=== PATIENT | female | born 1970 | race American Indian/Alaskan Native ===

== ENCOUNTER 2017-09-24 14:05 | Emergency (ER) | payer MEDICAID ==
[2017-09-24 14:17] VITALS: BP 120/90
[2017-09-24 15:04] LABS: Urine Drugs of Abuse Note Disclamer
[2017-09-24 15:20] LABS: Bilirubin,Urine NEG (Negative); Blood,Urine MOD (Negative); Ketones,Urine TR mg/dL (Negative); Leukocyte Esterase,Urine NEG (Negative); Mucus,Urine FEW /HPF; Nitrite,Urine NEG (Negative)
[2017-09-24 15:47] LABS: Basophils % (Auto) 0.9 % (0.0-1.8); Eosinophils % (Auto) 0.2 % (0.0-4.3); Hemoglobin 11.2 gm/dl (10.1-14.3); Mean Corpuscular HGB Conc 32 % (30-34); Mean Corpuscular Volume 72 fl (79-97); Red Blood Count 4.89 M/mm3 (3.65-5.03); Red Cell Distribution Width 17.2 % (13.2-15.2); White Blood Count 7.6 K/mm3 (4.5-11.0)
[2017-09-24 15:50] LABS: Mean Corpuscular Hemoglobin 23 pg (28-32)
[2017-09-24 15:51] LABS: Platelet Count 349 K/mm3 (140-440)
[2017-09-24 16:08] LABS: Alanine Aminotransferase 174 units/L (7-56); Albumin 4.1 g/dL (3.9-5); Albumin/Globulin Ratio 1.4 %; Alkaline Phosphatase 83 units/L (35-129); Anion Gap 22 mmol/L; BUN/Creatinine Ratio 12; Blood Urea Nitrogen 6 mg/dL (7-17); Calcium 9.1 mg/dL (8.4-10.2); Carbon Dioxide 21 mmol/L (22-30); Chloride 101.9 mmol/L (98-107); Glucose 113 mg/dL (65-100); Lipase 36 units/L (13-60); Potassium 3.7 mmol/L (3.6-5.0); Sodium 141 mmol/L (137-145); Total Protein 7.1 g/dL (6.3-8.2)
== END 2017-09-25 00:30 | disposition left against medical advice (07) ==
LOC: ED 14:05
DX: E86.0 Dehydration (principal); Z53.21 Procedure and treatment not carried out due to patient leaving prior to being seen by health care provider
CPT/HCPCS: 36415; 80053; 80307; 81001; 83690; 84484; 84703; 85025; 93005; 93010

== ENCOUNTER 2019-02-05 07:13 | Emergency (ER) | payer BC, MEDICARE ==
--- NOTE | 2019-02-05 07:54 | Emergency Department Report ---
History of Present Illness - General Chief Complaint: Abdominal Pain Stated Complaint: BODY PAIN Time Seen by Provider: 02/05/19 07:38 Source: patient, EMS Mode of arrival: Stretcher Limitations: No Limitations - History of Present Illness Initial Comments: Patient is 48 years old female with history of depression, chronic narcotics abuse. Patient stated that she's been following with a pain clinic. She stated that she is taking Percocet and gabapentin for pain. Patient stated that she was out of her pain medicine. She stated that she took 7 tablets of 500 mg of Tylenol at once. Patient stated that she had suicidal ideation last year for which she was admitted to inpatient psychiatric facility. Patient currently denying suicidal ideation and stated that she took the medicine just to help with her pain. Patient is alert and oriented 3 and in no acute distress. Patient looks depressed. She also denied any visual or auditory hallucination. No previous history of bipolar or schizophrenic. Due to the amount of Tylenol that patient took, patient to put on 1013 for mental health evaluation. MD Complaint: intentional overdose -: This morning Intent: other (wound to help with the pain) How Overdose Was Discovered: called 911 Context: Intentional Overdose: other Associated Symptoms: depression - Related Data Home Medications Medication Instructions Recorded Confirmed Last Taken Gabapentin [Neurontin] 600 mg PO Q6H 04/23/18 02/05/19 04/14/18 traZODone 50 mg PO PRN PRN 04/26/18 02/05/19 Unknown Previous Rx's Medication Instructions Recorded Last Taken Type HYDROcodone/APAP 10-325 [[place] 1 each PO Q6HR PRN #4 tablet 04/26/15 Unknown Rx 10-325 mg TAB] oxyCODONE /ACETAMINOPHEN [Percocet 1 tab PO BID PRN #10 tablet 04/29/18 Unknown Rx 5/325] Allergies Allergy/AdvReac Type Severity Reaction Status Date / Time ketorolac tromethamine Allergy Rash Verified 10/18/13 14:00 [From Toradol] ED Review of Systems ROS: Stated complaint: BODY PAIN Other details as noted in HPI Comment: All other systems reviewed and negative Constitutional: denies: chills, fever Respiratory: denies: cough, orthopnea, shortness of breath, SOB with exertion, SOB at rest, wheezing Cardiovascular: denies: chest pain, palpitations, dyspnea on exertion Gastrointestinal: denies: abdominal pain, nausea, vomiting Neurological: denies: headache, weakness, numbness, paresthesias, confusion, abnormal gait Psychiatric: depression. denies: auditory hallucinations, visual hallucinations, homicidal thoughts, suicidal thoughts ED Past Medical Hx - Past Medical History Previous Medical History?: Yes Additional medical history: chronic low back, L sciatica. bells palsy. anemia. depression. anxiety. L4-L5 - Surgical History Past Surgical History?: Yes Hx Cholecystectomy: Yes Additional Surgical History: back surgery (02/2013), Left wrist fracture repair (03/2014) - Social History Smoking Status: Never Smoker Substance Use Type: None - Medications Home Medications: Home Medications Medication Instructions Recorded Confirmed Last Taken Type HYDROcodone/APAP 10-325 [[place] 1 each PO Q6HR PRN #4 tablet 04/26/15 02/05/19 Unknown Rx 10-325 mg TAB] Gabapentin [Neurontin] 600 mg PO Q6H 04/23/18 02/05/19 04/14/18 History traZODone 50 mg PO PRN PRN 04/26/18 02/05/19 Unknown History oxyCODONE /ACETAMINOPHEN [Percocet 1 tab PO BID PRN #10 tablet 04/29/18 02/05/19 Unknown Rx 5/325] ED Physical Exam - General Limitations: No Limitations General appearance: alert, in no apparent distress, other (depressed) - Head Head exam: Present: atraumatic, normocephalic, normal inspection - Eye Eye exam: Present: normal appearance, PERRL - ENT ENT exam: Present: normal exam, normal orophraynx, mucous membranes moist - Neck Neck exam: Present: normal inspection, full ROM. Absent: tenderness, meningis mus, lymphadenopathy, thyromegaly - Respiratory Respiratory exam: Present: normal lung sounds bilaterally - Cardiovascular Cardiovascular Exam: Present: regular rate, normal rhythm, normal heart sounds - GI/Abdominal GI/Abdominal exam: Present: soft, normal bowel sounds. Absent: distended, tenderness, guarding, rebound, rigid, organomegaly, mass, bruit, pulsatile mass, hernia - Extremities Exam Extremities exam: Present: normal inspection, full ROM, normal capillary refill - Back Exam Back exam: Present: normal inspection, full ROM. Absent: CVA tenderness (R), CVA tenderness (L) - Neurological Exam Neurological exam: Present: alert, oriented X3, CN II-XII intact, normal gait, reflexes normal - Psychiatric Psychiatric exam: Present: depressed, anxious. Absent: agitated, manic, homicidal ideation, suicidal ideation - Skin Skin exam: Present: warm, intact, normal color ED Course Vital Signs 02/05/19 02/05/19 02/05/19 07:41 09:20 11:27 Temperature 97.6 F Pulse Rate 69 74 82 Respiratory 16 16 16 Rate Blood Pressure 128/93 Blood Pressure 135/78 137/95 [Left] O2 Sat by Pulse 99 97 100 Oximetry ED Medical Decision Making - Lab Data Result diagrams: 02/05/19 07:49 02/05/19 12:44 - Medical Decision Making Patient is 48 years old female with history of depression, chronic narcotics abuse. Patient stated that she's been following with a pain clinic. She stated that she is taking Percocet and gabapentin for pain. Patient stated that she was out of her pain medicine. She stated that she took 7 tablets of 500 mg of Tylenol at once. Patient stated that she had suicidal ideation last year for which she was admitted to inpatient psychiatric facility. Patient currently denying suicidal ideation and stated that she took the medicine just to help with her pain. Patient is alert and oriented 3 and in no acute distress. Patient looks depressed. She also denied any visual or auditory hallucination. No previous history of bipolar or schizophrenic. Due to the amount of Tylenol that patient took, patient to put on 1013 for mental health evaluation. Patient remained stable. Poison control contacted and advised that the dose is nontoxic but advised to repeat acetaminophen level in 4 hours with a hepatic panel. Patient acetaminophen level went down to 14. Patient is medically clear reevaluated by mental health for possible inpatient psychiatric admission. Critical care attestation.: If time is entered above; I have spent that time in minutes in the direct care of this critically ill patient, excluding procedure time. ED Disposition Clinical Impression: Acetaminophen overdose, Suicide attempt Disposition: [id number]/TX-65 PSY HOSP/PSY UNIT Is pt being admited?: No Condition: Stable Instructions: Abdominal Pain (ED) Referrals: KASSANDRA KELLY MD [Primary Care Provider] - 3-5 Days
[2019-02-05 08:07] LABS: Basophils # (Auto) 0.1 K/mm3 (0.0-0.1); Basophils % (Auto) 1.3 % (0.0-1.8); Eosinophils % (Auto) 0.8 % (0.0-4.3); Hematocrit 28.7 % (30.3-42.9); Hemoglobin 8.8 gm/dl (10.1-14.3); Lymphocytes # (Auto) 1.4 K/mm3 (1.2-5.4); Lymphocytes % (Auto) 33.8 % (13.4-35.0); Mean Corpuscular HGB Conc 31 % (30-34); Monocytes # (Auto) 0.3 K/mm3 (0.0-0.8); Monocytes % (Auto) 6.1 % (0.0-7.3); Platelet Count 371 K/mm3 (140-440); Red Blood Count 4.38 M/mm3 (3.65-5.03); Red Cell Distribution Width 18.8 % (13.2-15.2)
[2019-02-05 08:11] LABS: Mean Corpuscular Volume 66 fl (79-97)
[2019-02-05 08:24] LABS: BUN/Creatinine Ratio 13; Blood Urea Nitrogen 9 mg/dL (7-17); Calcium 8.9 mg/dL (8.4-10.2); Hemolysis Index 18
[2019-02-05 08:28] LABS: Alanine Aminotransferase 8 units/L (7-56); Albumin 3.6 g/dL (3.9-5)
[2019-02-05 09:33] LABS: Bilirubin,Direct < 0.2 mg/dL (0-0.2)
[2019-02-05 09:39] LABS: INR 0.95 (0.87-1.13)
[2019-02-05 09:40] LABS: Partial Thromboplastin Time 25.8 Sec. (24.2-36.6)
[2019-02-05 10:19] LABS: Bilirubin,Urine NEG (Negative); Blood,Urine NEG (Negative); Color,Urine Yellow (Yellow); Mucus,Urine FEW /HPF; Protein,Urine <15 mg/dL mg/dL (Negative); Urobilinogen,Urine < 2.0 mg/dL (<2.0)
[2019-02-05 10:58] LABS: Benzodiazepines Screen,Urine PRESUMPTIVE NEGATIVE; Cannabinoid Screen,Urine PRESUMPTIVE NEGATIVE; Cocaine Screen,Urine PRESUMPTIVE NEGATIVE; Methadone Screen,Urine PRESUMPTIVE NEGATIVE; Opiate Screen,Urine PRESUMPTIVE NEGATIVE
[2019-02-05 11:13] LABS: Amphetamine Screen,Urine PRESUMPTIVE POSITIVE
[2019-02-05 13:14] LABS: Alanine Aminotransferase 8 units/L (7-56); Albumin 3.8 g/dL (3.9-5); BUN/Creatinine Ratio 13; Blood Urea Nitrogen 9 mg/dL (7-17); Calcium 8.9 mg/dL (8.4-10.2); Hemolysis Index 8
[2019-02-05] MEDS ORDERED: NON-FORMULARY (Trazodone 150 MG) PO PRN (18:03)
[2019-02-05] MEDS ORDERED: DESYREL PO PRN (18:14)
[2019-02-05] MEDS: ATIVAN PO PRN (18:39)
[2019-02-05] MEDS ORDERED: CARISOPRODOL 250 MG PO SCH (20:00)
[2019-02-05] MEDS: SOMA PO PRN (20:41)
[2019-02-05] MEDS: NEURONTIN PO SCH ×2 (20:41→22:15)
[2019-02-05] MEDS ORDERED: NON-FORMULARY (Gabapentin [Neurontin] 600 MG) PO SCH (22:00)
[2019-02-06] MEDS: SOMA PO PRN ×2 (07:39→16:45)
[2019-02-06] MEDS: ATIVAN PO PRN ×2 (08:26→13:16)
[2019-02-06] MEDS: NEURONTIN PO SCH ×4 (10:47→22:03)
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
[2019-02-07] MEDS: ATIVAN PO PRN ×4 (02:54→22:56)
[2019-02-07] MEDS: SOMA PO PRN ×3 (02:54→22:56)
[2019-02-07] MEDS: NEURONTIN PO SCH ×4 (09:30→22:56)
--- NOTE | 2019-02-07 14:57 | Progress Note ---
Subjective - Reason for Consult Consult date: 02/07/19 Reason for consult: Psychiatry Follow-uo - Chief Complaint Chief complaint: "I am sad" 48 year old who presented to the ER for taking several Tylenol pills. Today the patient is calm and cooperative during the assessment. She stated is adamant that she didn't take the Tylenol pills to kill herself. She stated that she was in "pain" and had no other options at the time. She does a dmit to being depressed and sad about her medical issues (chronic pain). She stated that she is willing to take a SSRI at a small dose for her depression. She denies SI/HI's and AVH's. She stated that her sleep can be "off" sometimes." Mental Status Exam - Vital signs Last Vital Signs Temp 99.2 F 02/07/19 14:30 Pulse 111 H 02/07/19 14:30 Resp 18 02/07/19 14:30 BP 104/60 02/07/19 14:30 Pulse Ox 99 02/07/19 14:30 - Exam Narrative exam: . MSE: Appearance: calm, cooperative Behavior: regular eye contact Speech: regular rate with loud tone Mood:: "depressed" sad Affect: flat Thought Process: circumstantial Thought Content: denies SI/HI's and AVH's Motor Activity: ambulatory Cognition: A/O x3 Insight: fair Judgment: variable to fair Assessment and Plan Impression: MDD and COCO. Today the patient is calm and cooperative during the assessment. . DDx: R/O Bipolar DO Recommendation/Plan: Reevaluate 1013 in 24 hours. Start Lexapro 5 mg PO daily for depression and start Benadryl 25 mg PO HS PRN for sleep. Continue Ativan 1 mg PO TID PRN for anxiety. Discussed possible suicidality/medication induced alisha with the patient reference Lexapro, she verbalized understanding. Disp: If the patient's 1013 is rescinded in 24 hours, she can follow up with [facility] for outpatient psy services. Staffed with Dr. Killian Bledsoe.
[2019-02-07] MEDS ORDERED: BENADRYL PO PRN (15:03)
[2019-02-07] MEDS ORDERED: PERCOCET 5/325 PO ONE (16:55)
[2019-02-07] MEDS ORDERED: LEXAPRO PO SCH (18:00)
[2019-02-07] MEDS ORDERED: ZOFRAN ODT ONE (22:23)
[2019-02-07] MEDS ORDERED: ZOFRAN ODT PO ONE (22:26)
[2019-02-08] MEDS: ATIVAN PO PRN (05:44)
[2019-02-08] MEDS: SOMA PO PRN ×2 (05:44→10:40)
--- NOTE | 2019-02-08 09:54 | Progress Note ---
Subjective - Reason for Consult Consult date: 02/08/19 Reason for consult: Psychiatry Follow-up - Chief Complaint Chief complaint: "I tried the medication" 48 year old who presented to the ER for taking several Tylenol pills. Today the patient is calm and cooperative during the assessment. She stated that she "vomited" after taking the Lexapro last night and this morning. Per collateral information from her boyfriend Santiago Huertas at [phone], he stated that the patient took the Tylenol because she was in pain. He denies that she tried to killl herself. The patient stated that is scheduled to see a "pain doctor" this week at [facility]. She denies SI/HI's and AVH's. Mental Status Exam - Vital signs Last Vital Signs Temp 98.1 F 02/08/19 08:01 Pulse 94 H 02/08/19 08:01 Resp 18 02/08/19 08:01 BP 120/82 02/08/19 08:01 Pulse Ox 95 02/08/19 08:01 - Exam Narrative exam: MSE: Appearance: calm, cooperative Behavior: regular eye contact Speech: regular rate with loud tone Mood:: "depressed" sad Affect: flat Thought Process: linear Thought Content: denies HI's and AVH's Motor Activity: ambulatory Cognition: A/O x3 Insight: appropriate Judgment: appropriate Assessment and Plan Impression: MDD and COCO. Unintentional overdose. Today the patient is calm and cooperative during the assessment. The patient is positive for amphetamines. The patient is no threat to self. . DDx: R/O Bipolar DO Recommendation/Plan: Rescind 1013. Ativan 1 mg PO TID PRN for anxiety. The patient cannot tolerate antidepressants at this time, she prefer talk therapy. Disp:The patient can follow up with [facility] for outpatient psy services. Stafedf with Dr. Killian Bledsoe.
[2019-02-08] MEDS: NEURONTIN PO SCH (10:42)
[2019-02-08 18:28] VITALS: BP 120/82
== END 2019-02-08 11:04 ==
LOC: ED 07:13
DX: T39.1X2A Poisoning by 4-Aminophenol derivatives, intentional self-harm, initial encounter (principal); G89.29 Other chronic pain; M54.5 Low back pain; Z86.2 Personal history of diseases of the blood and blood-forming organs and certain disorders involving the immune mechanism; Z90.49 Acquired absence of other specified parts of digestive tract; Z88.6 Allergy status to analgesic agent; Y92.89 Other specified places as the place of occurrence of the external cause
CPT/HCPCS: 36415; 80048; 80053; 80076; 80307; 81001; 84703; 85025; 85610; 85730; 93005; 93010; 99284; G0480; 80320; J3246; Q0162

== ENCOUNTER 2019-10-11 20:23 | Emergency (ER) | payer BC, MEDICARE ==
[2019-10-11 21:24] LABS: Hematocrit 23.8 % (30.3-42.9); Hemoglobin 7.3 gm/dl (10.1-14.3); Mean Corpuscular HGB Conc 31 % (30-34); Platelet Count 545 K/mm3 (140-440); Red Blood Count 4.12 M/mm3 (3.65-5.03)
[2019-10-11 21:29] LABS: Mean Corpuscular Volume 58 fl (79-97); Red Cell Distribution Width 24.6 % (13.2-15.2)
[2019-10-11 21:42] VITALS: BP 151/84
[2019-10-11 21:51] LABS: BUN/Creatinine Ratio 11; Blood Urea Nitrogen 9 mg/dL (7-17); Calcium 8.7 mg/dL (8.4-10.2); Hemolysis Index 11; Iron 21 ug/dL (37-170); Total Iron Binding Capacity 417 mcg/dL (250-450)
--- NOTE | 2019-10-11 21:52 | Emergency Department Report ---
ED General Adult HPI - General Chief complaint: Recheck/Abnormal Lab/Rx Stated complaint: LOW HEMOGLOBIN Time Seen by Provider: 10/11/19 20:30 Source: patient, EMS, old records reviewed (hgb 8.8 in february 2018 and 04/2018 8.4) Mode of arrival: Stretcher Limitations: No Limitations - History of Present Illness Initial comments: 48-year-old female with a past medical history of iron deficiency anemia, chronic pain secondary to back surgery, wrist injury, and left-sided sciatica, depression with history of suicide attempt in the past insomnia, anxiety reports [place] [facility] to [place] hemoglobin. Patient was admitted to [facility] 10/08/2019 and had blood drawn on the that resulted today showing a hemoglobin 7.2 and hematocrit 27.9. Patient reports a history of iron deficiency anemia and has not ever had a blood transfusion and does not take iron pills on a regular basis. Iron pills were restarted at the psychiatric facility. Patient did have a menstrual cycle September 25 and denies heavy bleeding. She also denies melena, hematochezia, or hematemesis. Patient is voluntarily admitted to [facility] for suicidal ideation due and is not on a signed 1013. Severity scale (0 -10): 0 - Related Data Home Medications Medication Instructions Recorded Confirmed Last Taken Gabapentin [Neurontin] 600 mg PO QID 04/23/18 02/07/19 04/14/18 traZODone 150 mg PO PRN PRN 04/26/18 02/07/19 Unknown Carisoprodol [Soma] 250 mg PO TID 02/05/19 02/07/19 Unknown LORazepam [Ativan] 1 mg PO TID PRN 02/05/19 02/07/19 Unknown Previous Rx's Medication Instructions Recorded Last Taken Type HYDROcodone/APAP 10-325 [[place] 1 each PO Q6HR PRN #4 tablet 04/26/15 Unknown Rx 10-325 mg TAB] oxyCODONE /ACETAMINOPHEN [Percocet 1 tab PO BID PRN #10 tablet 04/29/18 Unknown Rx 5/325] LORazepam [Ativan] 0.5 mg PO QHS PRN #15 tab 02/08/19 Unknown Rx Docusate Sodium [Colace] 100 mg PO BID PRN #20 capsule 10/11/19 Unknown Rx Allergies Allergy/AdvReac Type Severity Reaction Status Date / Time ketorolac tromethamine Allergy Rash Verified 10/18/13 14:00 [From Toradol] ED Review of Systems ROS: Stated complaint: LOW HEMOGLOBIN Other details as noted in HPI Comment: All other systems reviewed and negative ED Past Medical Hx - Past Medical History Additional medical history: chronic low back, L sciatica. bells palsy. anemia. depression. anxiety. L4-L5 - Surgical History Hx Cholecystectomy: Yes Additional Surgical History: back surgery (02/2013), Left wrist fracture repair (03/2014) - Social History Smoking Status: Never Smoker Substance Use Type: None - Medications Home Medications: Home Medications Medication Instructions Recorded Confirmed Last Taken Type HYDROcodone/APAP 10-325 [[place] 1 each PO Q6HR PRN #4 tablet 04/26/15 02/07/19 Unknown Rx 10-325 mg TAB] Gabapentin [Neurontin] 600 mg PO QID 04/23/18 02/07/19 04/14/18 History traZODone 150 mg PO PRN PRN 04/26/18 02/07/19 Unknown History oxyCODONE /ACETAMINOPHEN [Percocet 1 tab PO BID PRN #10 tablet 04/29/18 02/07/19 Unknown Rx 5/325] Carisoprodol [Soma] 250 mg PO TID 02/05/19 02/07/19 Unknown History LORazepam [Ativan] 1 mg PO TID PRN 02/05/19 02/07/19 Unknown History LORazepam [Ativan] 0.5 mg PO QHS PRN #15 tab 02/08/19 Unknown Rx Docusate Sodium [Colace] 100 mg PO BID PRN #20 capsule 10/11/19 Unknown Rx ED Physical Exam - General Limitations: No Limitations ED Course Vital Signs 10/11/19 10/11/19 10/11/19 20:37 20:49 21:35 Pulse Rate 78 68 Respiratory 14 14 14 Rate Blood Pressure 158/88 151/84 [Left] O2 Sat by Pulse 100 100 100 Oximetry ED Medical Decision Making - Lab Data Result diagrams: 10/11/19 21:09 10/11/19 21:09 Lab Results 10/11/19 10/11/19 10/11/19 Range/Units 21:09 21:09 21:09 WBC 6.6 (4.5-11.0) K/mm3 RBC 4.12 (3.65-5.03) M/mm3 Hgb 7.3 L (10.1-14.3) gm/dl Hct 23.8 L (30.3-42.9) % MCV 58 L (79-97) fl MCH 18 L (28-32) pg MCHC 31 (30-34) % RDW 24.6 H (13.2-15.2) % Plt Count 545 H (140-440) K/mm3 Sodium 137 (137-145) mmol/L Potassium 3.9 (3.6-5.0) mmol/L Chloride 100.1 (98-107) mmol/L Carbon Dioxide 21 L (22-30) mmol/L Anion Gap 20 mmol/L BUN 9 (7-17) mg/dL Creatinine 0.8 (0.7-1.2) mg/dL Estimated GFR > 60 ml/min BUN/Creatinine Ratio 11 % Glucose 107 H (65-100) mg/dL Calcium 8.7 (8.4-10.2) mg/dL Iron 21 L (37-170) ug/dL TIBC 417 (250-450) mcg/dL HCG, Qual (Negative) Blood Type O POSITIVE Antibody Screen Negative 10/11/19 Range/Units 21:09 WBC (4.5-11.0) K/mm3 RBC (3.65-5.03) M/mm3 Hgb (10.1-14.3) gm/dl Hct (30.3-42.9) % MCV (79-97) fl MCH (28-32) pg MCHC (30-34) % RDW (13.2-15.2) % Plt Count (140-440) K/mm3 Sodium (137-145) mmol/L Potassium (3.6-5.0) mmol/L Chloride (98-107) mmol/L Carbon Dioxide (22-30) mmol/L Anion Gap mmol/L BUN (7-17) mg/dL Creatinine (0.7-1.2) mg/dL Estimated GFR ml/min BUN/Creatinine Ratio % Glucose (65-100) mg/dL Calcium (8.4-10.2) mg/dL Iron (37-170) ug/dL TIBC (250-450) mcg/dL HCG, Qual Negative (Negative) Blood Type Antibody Screen - Medical Decision Making pt has chronic iron deficiency anemia sx of lightheadedness for several months no acute blood loss reported no hypotension or tachycardia no vaginal bleeding, guaic neg rectal exam low iron level Pt has been started on iron tabs tid today at psych facility iron tab will be started with heme outpt f/u advised pt given a [place] for chronic back pain. (pt being given norco at [place]) - Differential Diagnosis anemia, iron def, acute blood loss, chronic anemia Critical Care Time: No Critical care attestation.: If time is entered above; I have spent that time in minutes in the direct care of this critically ill patient, excluding procedure time. ED Disposition Clinical Impression: Iron deficiency anemia, Chronic pain, Depression Disposition: TO HOME OR SELFCARE Is pt being admited?: No Does the pt Need Aspirin: No Condition: Stable Instructions: Iron Deficiency Anemia (ED) Additional Instructions: Continue the Iron tablets as prescribed. Follow-up with your doctor or doctor/c linic provided. Return if symptoms worsen as indicated by your discharge instructions. Prescriptions: Docusate Sodium [Colace] 100 mg PO BID PRN #20 capsule PRN Reason: Constipation Referrals: GUMARO TAYLOR DO [Staff Physician] - 3-5 Days (hematology ) PHONG VOGEL MD [Staff Physician] - 3-5 Days (hematology ) [facility] [Provider Group] - 3-5 Days Time of Disposition: 22:32
[2019-10-11] MEDS ORDERED: HYDROcodone/ACETAMINOPHEN 5-325 MG TAB PO ONE (22:12)
[2019-10-11 22:31] LABS: Basophils % (Manual) 0 % (0.0-1.8); Total Cells Counted 100
[2019-10-11 22:32] LABS: Anisocytosis 2+; Platelet Estimate Consistent w Auto
[2019-10-11 22:33] LABS: Hypochromasia 2+; Ovalocytes 1+; Target Cells 2+
== END 2019-10-11 23:56 | disposition home or self-care (01) ==
LOC: ED 20:23
DX: D50.9 Iron deficiency anemia, unspecified (principal); F32.9 Major depressive disorder, single episode, unspecified; G51.0 Bell's palsy; Z90.49 Acquired absence of other specified parts of digestive tract; Z79.899 Other long term (current) drug therapy; Z88.8 Allergy status to other drugs, medicaments and biological substances
CPT/HCPCS: 36415; 80048; 82271; 83550; 84703; 85007; 85025; 86850; 86900; 86901

== ENCOUNTER 2020-07-24 01:43 | Emergency (ER) | payer BC, MEDICARE ==
[2020-07-24 02:28] LABS: Amphetamine Screen,Urine PRESUMPTIVE POSITIVE; Benzodiazepines Screen,Urine PRESUMPTIVE NEGATIVE; Cannabinoid Screen,Urine PRESUMPTIVE NEGATIVE; Cocaine Screen,Urine PRESUMPTIVE NEGATIVE; Methadone Screen,Urine PRESUMPTIVE NEGATIVE; Opiate Screen,Urine PRESUMPTIVE NEGATIVE
[2020-07-24 02:38] LABS: Bilirubin,Urine SM (Negative); Blood,Urine SM (Negative); Color,Urine Yellow (Yellow); Mucus,Urine 1+ /HPF
[2020-07-24 03:07] LABS: Basophils % (Auto) 0.6 % (0.0-1.8); Eosinophils % (Auto) 0.6 % (0.0-4.3); Hematocrit 32.4 % (30.3-42.9); Hemoglobin 10.3 gm/dl (10.1-14.3); Lymphocytes # (Auto) 2.2 K/mm3 (1.2-5.4); Mean Corpuscular HGB Conc 32 % (30-34); Mean Corpuscular Volume 72 fl (79-97); Monocytes # (Auto) 0.5 K/mm3 (0.0-0.8); Platelet Count 337 K/mm3 (140-440); Red Cell Distribution Width 16.8 % (13.2-15.2)
[2020-07-24 03:20] LABS: Blood Urea Nitrogen 17 mg/dL (7-17); Calcium 8.7 mg/dL (8.4-10.2); Hemolysis Index 0
[2020-07-24 03:22] LABS: Ictotest,Urine Negative (Negative)
[2020-07-24 03:33] LABS: BUN/Creatinine Ratio 24
--- NOTE | 2020-07-24 07:33 | Emergency Department Report ---
<MARIANGEL JIMENEZ - Last Filed: 07/26/20 11:28> ED Psych HPI - General Chief Complaint: Psych Stated Complaint: MH EVAL Time Seen by Provider: 07/24/20 06:11 Limitations: Physical Limitation - Related Data Home Medications Medication Instructions Recorded Confirmed Last Taken Gabapentin [Neurontin] 800 mg PO QID 04/23/18 07/26/20 06/27/20 1200 oxyCODONE /ACETAMINOPHEN [Percocet 10 - 325 mg PO QID PRN 06/27/20 07/27/20 06/27/20 5/325 mg] 1300 Carisoprodol [Soma] 350 mg PO DAILY 07/26/20 07/26/20 2 Weeks Ago ~07/12/20 350 mg Previous Rx's Medication Instructions Recorded Last Taken Type Venlafaxine Xr [Effexor XR] 75 mg PO QDAY #30 capsule 07/03/20 Unknown Rx buPROPion [Wellbutrin] 100 mg PO BID@0800,1400 #60 tablet 07/03/20 Unknown Rx ARIPiprazole 5 mg PO QDAY #30 tablet 07/30/[address] [Liu Dr] 500 mg PO BID #60 tablet 07/30/20 Unknown Rx Mirtazapine [Remeron 30mg TAB] 30 mg PO QHS #30 tablet 07/30/20 Unknown Rx Allergies Allergy/AdvReac Type Severity Reaction Status Date / Time ketorolac tromethamine Allergy Rash Verified 07/24/20 08:14 [From Toradol] ED Past Medical Hx - Medications Home Medications: Home Medications Medication Instructions Recorded Confirmed Last Taken Type Gabapentin [Neurontin] 800 mg PO QID 04/23/18 07/26/20 06/27/20 History 1200 oxyCODONE /ACETAMINOPHEN [Percocet 10 - 325 mg PO QID PRN 06/27/20 07/27/20 06/27/20 History 5/325 mg] 1300 Venlafaxine Xr [Effexor XR] 75 mg PO QDAY #30 capsule 07/03/20 07/26/20 Unknown Rx buPROPion [Wellbutrin] 100 mg PO BID@0800,1400 #60 tablet 07/03/20 07/26/20 Unknown Rx Carisoprodol [Soma] 350 mg PO DAILY 07/26/20 07/26/20 2 Weeks Ago History ~07/12/20 350 mg ARIPiprazole 5 mg PO QDAY #30 tablet 07/30/[address] [Depakote Dr] 500 mg PO BID #60 tablet 07/30/20 Unknown Rx Mirtazapine [Remeron 30mg TAB] 30 mg PO QHS #30 tablet 07/30/20 Unknown Rx ED Course - Reevaluation(s) Reevaluation #1: 07/26/20 11:58 Patient is been admitted to our [facility] psych unit. ED Medical Decision Making - Lab Data Result diagrams: 07/24/20 02:48 07/24/20 02:48 Lab Results 07/24/20 07/24/20 07/24/20 Range/Units 02:48 02:48 02:48 WBC (4.5-11.0) K/mm3 RBC (3.65-5.03) M/mm3 Hgb (10.1-14.3) gm/dl Hct (30.3-42.9) % MCV (79-97) fl MCH (28-32) pg MCHC (30-34) % RDW (13.2-15.2) % Plt Count (140-440) K/mm3 Lymph % (Auto) (13.4-35.0) % [place] % (Auto) (0.0-7.3) % Eos % (Auto) (0.0-4.3) % Baso % (Auto) (0.0-1.8) % Lymph # (Auto) (1.2-5.4) K/mm3 [place] # (Auto) (0.0-0.8) K/mm3 Eos # (Auto) (0.0-0.4) K/mm3 Baso # (Auto) (0.0-0.1) K/mm3 Seg Neutrophils % (40.0-70.0) % Seg Neutrophils # (1.8-7.7) K/mm3 Sodium 140 (137-145) mmol/L Potassium 4.1 (3.6-5.0) mmol/L Chloride 101.8 (98-107) mmol/L Carbon Dioxide 24 (22-30) mmol/L Anion Gap 18 mmol/L BUN 17 (7-17) mg/dL Creatinine 0.7 (0.6-1.2) mg/dL Estimated GFR > 60 ml/min BUN/Creatinine Ratio 24 % Glucose 170 H (65-100) mg/dL Calcium 8.7 (8.4-10.2) mg/dL Urine Color (Yellow) Urine Turbidity (Clear) Urine pH (5.0-7.0) Ur Specific [place] (1.003-1.030) Urine Protein (Negative) mg/dL Urine Glucose (UA) (Negative) mg/dL Urine Ketones (Negative) mg/dL Urine Blood (Negative) Urine Nitrite (Negative) Urine Bilirubin (Negative) Urine Ictotest (Negative) Urine Urobilinogen (<2.0) mg/dL Ur Leukocyte Esterase (Negative) Urine WBC (Auto) (0.0-6.0) /HPF Urine RBC (Auto) (0.0-6.0) /HPF U Epithel Cells (Auto) (0-13.0) /HPF Urine Mucus /HPF Salicylates < 0.3 L (2.8-20.0) mg/dL Urine Opiates Screen Urine Methadone Screen Acetaminophen 12.5 (10.0-30.0) ug/mL Ur Barbiturates Screen Ur Phencyclidine Scrn Ur Amphetamines Screen U Benzodiazepines Scrn Urine Cocaine Screen U Marijuana (THC) Screen Drugs of Abuse Note Plasma/Serum Alcohol (0-0.07) % Coronavirus (PCR) (Negative) 07/24/20 07/24/20 07/24/20 Range/Units 02:48 02:48 Unknown WBC 8.1 (4.5-11.0) K/mm3 RBC 4.50 (3.65-5.03) M/mm3 Hgb 10.3 (10.1-14.3) gm/dl Hct 32.4 (30.3-42.9) % MCV 72 L (79-97) fl MCH 23 L (28-32) pg MCHC 32 (30-34) % RDW 16.8 H (13.2-15.2) % Plt Count 337 (140-440) K/mm3 Lymph % (Auto) 27.0 (13.4-35.0) % [place] % (Auto) 6.0 (0.0-7.3) % Eos % (Auto) 0.6 (0.0-4.3) % Baso % (Auto) 0.6 (0.0-1.8) % Lymph # (Auto) 2.2 (1.2-5.4) K/mm3 [place] # (Auto) 0.5 (0.0-0.8) K/mm3 Eos # (Auto) 0.0 (0.0-0.4) K/mm3 Baso # (Auto) 0.0 (0.0-0.1) K/mm3 Seg Neutrophils % 65.8 (40.0-70.0) % Seg Neutrophils # 5.4 (1.8-7.7) K/mm3 Sodium (137-145) mmol/L Potassium (3.6-5.0) mmol/L Chloride (98-107) mmol/L Carbon Dioxide (22-30) mmol/L Anion Gap mmol/L BUN (7-17) mg/dL Creatinine (0.6-1.2) mg/dL Estimated GFR ml/min BUN/Creatinine Ratio % Glucose (65-100) mg/dL Calcium (8.4-10.2) mg/dL Urine Color Yellow (Yellow) Urine Turbidity Clear (Clear) Urine pH 5.0 (5.0-7.0) Ur Specific [place] 1.057 H (1.003-1.030) Urine Protein 30 mg/dl (Negative) mg/dL Urine Glucose (UA) Neg (Negative) mg/dL Urine Ketones Tr (Negative) mg/dL Urine Blood Sm (Negative) Urine Nitrite Neg (Negative) Urine Bilirubin Sm (Negative) Urine Ictotest Negative (Negative) Urine Urobilinogen 2.0 (<2.0) mg/dL Ur Leukocyte Esterase Neg (Negative) Urine WBC (Auto) 1.0 (0.0-6.0) /HPF Urine RBC (Auto) 6.0 (0.0-6.0) /HPF U Epithel Cells (Auto) 2.0 (0-13.0) /HPF Urine Mucus 1+ /HPF Salicylates (2.8-20.0) mg/dL Urine Opiates Screen Urine Methadone Screen Acetaminophen (10.0-30.0) ug/mL Ur Barbiturates Screen Ur Phencyclidine Scrn Ur Amphetamines Screen U Benzodiazepines Scrn Urine Cocaine Screen U Marijuana (THC) Screen Drugs of Abuse Note Plasma/Serum Alcohol < 0.01 (0-0.07) % Coronavirus (PCR) (Negative) 07/24/20 07/25/20 Range/Units Unknown 08:29 WBC (4.5-11.0) K/mm3 RBC (3.65-5.03) M/mm3 Hgb (10.1-14.3) gm/dl Hct (30.3-42.9) % MCV (79-97) fl MCH (28-32) pg MCHC (30-34) % RDW (13.2-15.2) % Plt Count (140-440) K/mm3 Lymph % (Auto) (13.4-35.0) % [place] % (Auto) (0.0-7.3) % Eos % (Auto) (0.0-4.3) % Baso % (Auto) (0.0-1.8) % Lymph # (Auto) (1.2-5.4) K/mm3 [place] # (Auto) (0.0-0.8) K/mm3 Eos # (Auto) (0.0-0.4) K/mm3 Baso # (Auto) (0.0-0.1) K/mm3 Seg Neutrophils % (40.0-70.0) % Seg Neutrophils # (1.8-7.7) K/mm3 Sodium (137-145) mmol/L Potassium (3.6-5.0) mmol/L Chloride (98-107) mmol/L Carbon Dioxide (22-30) mmol/L Anion Gap mmol/L BUN (7-17) mg/dL Creatinine (0.6-1.2) mg/dL Estimated GFR ml/min BUN/Creatinine Ratio % Glucose (65-100) mg/dL Calcium (8.4-10.2) mg/dL Urine Color (Yellow) Urine Turbidity (Clear) Urine pH (5.0-7.0) Ur Specific [place] (1.003-1.030) Urine Protein (Negative) mg/dL Urine Glucose (UA) (Negative) mg/dL Urine Ketones (Negative) mg/dL Urine Blood (Negative) Urine Nitrite (Negative) Urine Bilirubin (Negative) Urine Ictotest (Negative) Urine Urobilinogen (<2.0) mg/dL Ur Leukocyte Esterase (Negative) Urine WBC (Auto) (0.0-6.0) /HPF Urine RBC (Auto) (0.0-6.0) /HPF U Epithel Cells (Auto) (0-13.0) /HPF Urine Mucus /HPF Salicylates (2.8-20.0) mg/dL Urine Opiates Screen Presumptive negative Urine Methadone Screen Presumptive negative Acetaminophen (10.0-30.0) ug/mL Ur Barbiturates Screen Presumptive negative Ur Phencyclidine Scrn Presumptive negative Ur Amphetamines Screen Presumptive positive U Benzodiazepines Scrn Presumptive negative Urine Cocaine Screen Presumptive negative U Marijuana (THC) Screen Presumptive negative Drugs of Abuse Note Disclamer Plasma/Serum Alcohol (0-0.07) % Coronavirus (PCR) Negative (Negative) ED Disposition Clinical Impression: Bipolar disorder, Suicidal ideation, MDD (major depressive disorder), recurrent episode, severe Disposition: DC/TX-65 PSY HOSP/PSY UNIT Is pt being admited?: No Does the pt Need Aspirin: No Condition: Stable Referrals: KASSANDRA KELLY MD [Primary Care Provider] - 3-5 Days Time of Disposition: 11:59 <ASPEN ZELAYA - Last Filed: 07/30/20 18:59> ED Psych HPI - General Source: patient Mode of arrival: Ambulatory - History of Present Illness Initial Comments: 49-year-old female with history of bipolar disorder, anxiety, chronic neck and back pain, presents to the ED with complaint of suicidal ideations. Patient states she was recently discharged from our psychiatric for a few weeks ago. Patient states the current medication regimen that they have her on is not working. She denies any hallucinations or HI. Patient does not currently have a plan for suicide. She denies any alcohol or drug use. Complaint: suicidal ideation -: days(s) (4) Associated Psychiatric Symptoms: suicidal ideation History of same: Yes Quality: constant Improves With: none Worsens With: none Context: new medication(s) Associated Symptoms: denies other symptoms Treatments Prior to Arrival: none If Self Harm: admits thoughts of ED Review of Systems ROS: Stated complaint: MH EVAL Other details as noted in HPI Comment: All other systems reviewed and negative Psychiatric: suicidal thoughts, other (Reports insomnia). denies: auditory hallucinations, visual hallucinations, homicidal thoughts ED Past Medical Hx - Past Medical History Previous Medical History?: Yes Hx Congestive Heart Failure: No Hx Diabetes: No Hx Renal Disease: No Hx Arthritis: Yes (DJD) Hx Seizures: No Hx Asthma: No Hx COPD: No Additional medical history: chronic low back, L sciatica. bells palsy. anemia. depression. anxiety. L4-L5 - Surgical History Past Surgical History?: Yes Hx Cholecystectomy: Yes (1998) Additional Surgical History: back surgery (02/2013), Left wrist fracture repair (03/2014). x2 ectopic , Neck. abd - Social History Smoking Status: Never Smoker ED Physical Exam - General Limitations: No Limitations General appearance: alert, in no apparent distress - Head Head exam: Present: atraumatic, normocephalic - Eye Eye exam: Present: normal appearance, EOMI - ENT ENT exam: Present: mucous membranes moist - Neck Neck exam: Present: normal inspection - Respiratory Respiratory exam: Present: normal lung sounds bilaterally. Absent: respiratory distress - Cardiovascular Cardiovascular Exam: Present: regular rate, normal rhythm - GI/Abdominal GI/Abdominal exam: Absent: distended - Extremities Exam Extremities exam: Present: normal inspection - Neurological Exam Neurological exam: Present: alert, oriented X3 - Psychiatric Psychiatric exam: Present: depressed, suicidal ideation - Skin Skin exam: Present: warm, dry, intact, normal color ED Course Vital Signs 07/24/20 07/24/20 07/24/20 01:53 09:08 17:10 Temperature 98.8 F 98.1 F 98.3 F Pulse Rate 89 86 113 H Respiratory 18 20 18 Rate Blood Pressure 131/102 148/98 Blood Pressure 174/101 [Left] O2 Sat by Pulse 96 98 97 Oximetry 07/25/20 07/25/20 07/25/20 03:09 07:41 20:18 Temperature 97.6 F 98.2 F 98.4 F Pulse Rate 69 82 83 Respiratory 18 20 18 Rate Blood Pressure Blood Pressure 163/84 154/102 160/109 [Left] O2 Sat by Pulse 100 98 96 Oximetry 07/26/20 07/26/20 07/26/20 02:22 03:37 08:10 Temperature 98.2 F 98.3 F Pulse Rate 92 H 94 H Respiratory 18 16 17 Rate Blood Pressure Blood Pressure 145/93 119/83 [Left] O2 Sat by Pulse 96 97 Oximetry ED Medical Decision Making - Lab Data Result diagrams: 07/24/20 02:48 07/24/20 02:48 - Medical Decision Making 49-year-old female presents to ED with complaint of suicidal ideations. Drug screen is positive for amphetamines. Tylenol level is 12.5. Patient is chronically on Percocet, this likely accounts for the nontoxic Tylenol level. Labs are otherwise unremarkable. She is medically clear for mental health evaluation. - Differential Diagnosis Bipolar, SI, drug abuse Critical care attestation.: If time is entered above; I have spent that time in minutes in the direct care of this critically ill patient, excluding procedure time. ED Disposition Is pt being admited?: No
[2020-07-24] MEDS ORDERED: GABAPENTIN 400 MG CAP ONE (09:08)
[2020-07-24] MEDS ORDERED: NON-FORMULARY EACH (Gabapentin [Neurontin] 800 MG) PO SCH (10:00)
[2020-07-24] MEDS: GABAPENTIN 400 MG CAP PO SCH ×4 (10:06→23:05)
[2020-07-24] MEDS ORDERED: oxyCODONE /ACETAMINOPHEN 5-325MG TAB PO ONE ×2 (10:18→17:21)
[2020-07-24] MEDS ORDERED: oxyCODONE /ACETAMINOPHEN 5-325MG TAB ONE (17:21)
[2020-07-24] MEDS: ACETAMINOPHEN 325 MG TAB PO PRN (23:05)
[2020-07-24] MEDS: LORazepam 1 MG TAB PO PRN (23:05)
[2020-07-25] MEDS: buPROPion 100 MG TAB PO SCH ×2 (08:56→13:42)
[2020-07-25] MEDS: ACETAMINOPHEN 325 MG TAB PO PRN (10:22)
[2020-07-25] MEDS: GABAPENTIN 400 MG CAP PO SCH ×4 (10:22→22:02)
[2020-07-25] MEDS: DIVALPROEX DR 250 MG TAB PO SCH ×2 (10:23→22:04)
--- NOTE | 2020-07-25 10:38 | Consultation ---
History of Present Illness - Reason for Consult Consult date: 07/25/20 Reason for consult: SI - History of Present Psychiatric Illness The patient's medical record was reviewed and the patient's progress was discussed with the nursing staff. The nurse note states the patient is being seen in the ED due to SI with plan to walk into traffic, hx of depression, pt admits to having visual hallucinations of her brother that last year, chronic pain, pending COVID test, pending admission to [facility], UA positive for Amphetamines. Julee Kay is a 49y/o female patient who is known to me from a recent admission to [facility]. During my interview with the patient, she is lying down awake. She is tearful. She says "I feel real suicidal, worse than before." She says "I was here two weeks ago, and I just don't feel like I'm better." The patient says she will "run into traffic and get hit or something." The patient verbalizes feeling "depressed and not having a life." She says she "hears voices that says I'm better off ." She says she "hasn't slept in about five days." She says, "I don't want to live like this. It's mostly my disability that causes a lot of my problems." The patient's denies any illicit drug use, alcohol or nicotine. When mentioned about her UDS being positive for amphetamines, the patient says, "you sure yall got the right urine. I don't do any type of drugs. The pain clinic tests me every month." She then says "what are amphetamines anyway?" PAST PSYCHIATRIC HISTORY: Diagnoses: Bipolar, depression, anxiety Suicide attempts or Self-harm behavior: Once Prior psychiatric hospitalizations: four times Substance Abuse history: Denies Previous psychiatric medications tried: no currently Outpatient treatment: not currently PAST MEDICAL HISTORY: None reported Family Psychiatric History: None reported or documented SOCIAL HISTORY Marital Status: Engaged Living Arrangements: with sig other and child Employment Status: Disabled Access to guns/weapons: Denies Education: 2 years of college History of Abuse: Denies Legal History: none reported REVIEW OF SYSTEMS Constitutional: Negative for weight loss ENT: Negative for stridor Respiratory: Negative for cough or hemoptysis All other systems reviewed and are negative MENTAL STATUS EXAMINATION General Appearance: Dressed appropriately Behavior: calm and cooperative. Polite. Poor eye contact Mood: "depressed" Affect and affective range: Restricted Thought Process: goal directed Speech: normal rate and volume Thought Content: Suicidal Ideation: Yes, with plan to run in traffic Homicidal Ideation: Denies HI Hallucinations: auditory Delusions: none elicited Insight and Judgment: Limited Memory/Cognition: Limited Attention: Normal ASSESSMENT Bipolar Disorder, Current Episode Depressed, w/Psychotic Features Generalize Anxiety Disorder Treatment Plan 1013 Agree with continued home meds Start Abilify 5mg po daily Start Zoloft 25mg po daily Sitter: Defer to primary Medical: Per primary Disposition: Recommend acute inpatient treatment Will follow. Thank you for this consult. Medications and Allergies Allergies Allergy/AdvReac Type Severity Reaction Status Date / Time ketorolac tromethamine Allergy Rash Verified 07/24/20 08:14 [From Toradol] Home Medications Medication Instructions Recorded Confirmed Last Taken Type Gabapentin [Neurontin] 800 mg PO QID 04/23/18 07/24/20 06/27/20 History 1200 LORazepam [Ativan] 1 mg PO BID PRN 02/05/19 07/24/20 Unknown History oxyCODONE /ACETAMINOPHEN [Percocet 1 tab PO QID PRN 06/27/20 07/24/20 06/27/20 History 5/325 mg] 1300 Carisoprodol [Soma] 350 mg PO TID #14 tablet 07/03/20 07/24/[address] [Depakote Dr] 250 mg PO BID #60 tablet 07/03/20 07/24/20 Unknown Rx Venlafaxine Xr [Effexor XR] 75 mg PO QDAY #30 capsule 07/03/20 07/24/20 Unknown Rx buPROPion [Wellbutrin] 100 mg PO BID@0800,1400 #60 tablet 07/03/20 07/24/20 Unknown Rx traZODone [Desyrel] 150 mg PO QHS 07/24/20 07/24/20 Unknown History Active Meds: Active Medications Acetaminophen (Tylenol) 650 mg PO Q6HR PRN PRN Reason: PAIN Last Admin: 07/25/20 10:22 Dose: 650 mg Documented by: Bupropion HCl (Wellbutrin) 100 mg PO BID@0800,1400 HELEN Last Admin: 07/25/20 08:56 Dose: 100 mg Documented by: Divalproex Sodium (Depakote Dr) 250 mg PO BID [facility] Last Admin: 07/25/20 10:23 Dose: 250 mg Documented by: Gabapentin (Gabapentin) 800 mg PO QID [facility] Last Admin: 07/25/20 10:22 Dose: 800 mg Documented by: Lorazepam (Ativan) 1 mg PO BID PRN PRN Reason: Anxiety Last Admin: 07/24/20 23:05 Dose: 1 mg Documented by: Trazodone HCl (Desyrel) 150 mg PO QHS [facility] Mental Status Exam - Vital signs Last Vital Signs Temp 98.2 F 07/25/20 07:41 Pulse 82 07/25/20 07:41 Resp 20 07/25/20 07:41 BP 154/102 07/25/20 07:41 Pulse Ox 98 07/25/20 07:41 Results Result Diagrams: 07/24/20 02:48 07/24/20 02:48 All other labs normal.
[2020-07-25] MEDS: SERTRALINE 25 MG TAB PO SCH (11:12)
[2020-07-25] MEDS: ARIPiprazole 5 MG TAB PO SCH (11:12)
[2020-07-25] MEDS: oxyCODONE /ACETAMINOPHEN 5-325MG TAB PO PRN ×2 (11:12→18:32)
[2020-07-25] MEDS: LORazepam 1 MG TAB PO PRN (20:52)
[2020-07-25] MEDS ORDERED: traZODone 50 MG TAB PO SCH (22:00)
[2020-07-26] MEDS: oxyCODONE /ACETAMINOPHEN 5-325MG TAB PO PRN (03:37)
[2020-07-26] MEDS: LORazepam 1 MG TAB PO PRN (03:43)
[2020-07-26 08:11] VITALS: BP 119/83
[2020-07-26] MEDS: buPROPion 100 MG TAB PO SCH (09:20)
[2020-07-26] MEDS: ARIPiprazole 5 MG TAB PO SCH (10:37)
[2020-07-26] MEDS: SERTRALINE 25 MG TAB PO SCH (10:37)
[2020-07-26] MEDS: DIVALPROEX DR 250 MG TAB PO SCH (10:38)
[2020-07-26] MEDS: GABAPENTIN 400 MG CAP PO SCH (10:38)
== END 2020-07-26 12:26 ==
LOC: ED 01:43
DX: T39.1X1A Poisoning by 4-Aminophenol derivatives, accidental (unintentional), initial encounter (principal); F31.9 Bipolar disorder, unspecified; F41.9 Anxiety disorder, unspecified; R45.851 Suicidal ideations; D64.9 Anemia, unspecified; M19.90 Unspecified osteoarthritis, unspecified site; Z88.8 Allergy status to other drugs, medicaments and biological substances; Z79.899 Other long term (current) drug therapy; Z98.890 Other specified postprocedural states; Z90.49 Acquired absence of other specified parts of digestive tract
CPT/HCPCS: 36415; 80048; 80307; 81001; 82962; 85025; 99284; U0003; 80320; G0480

== ENCOUNTER 2020-11-01 10:24 | Emergency (ER) | payer MEDICARE ==
[2020-11-01] MEDS ORDERED: ALPRAZolam 0.5 MG TAB PO ONE (10:54)
--- NOTE | 2020-11-01 10:57 | Emergency Department Report ---
HPI - General Chief Complaint: Psych Time Seen by Provider: 11/01/20 10:47 - HPI HPI: This is a 50-year-old -[place] female presents to the emergency department with complaint of anxiety, depression and suicidal ideations. The patient says that she was walking down [facility] and was planning on walking in front of a car. The patient says that she has been having a lot of stress regarding take care of herself. She has a history of chronic low back pain, sciatica, and is under the care of an orthopedist for this and for pain control. The patient has a past medical history of anxiety, depression and bipolar disorder. She has been out of her medications for the past 2 weeks. She says that she had an appointment with a new psychiatrist at the end of September but was unable to see them secondary to insurance issues. She denies any homicidal ideations or any significant hallucinations. ED Past Medical Hx - Past Medical History Hx Congestive Heart Failure: No Hx Diabetes: No Hx Renal Disease: No Hx Arthritis: Yes (DJD) Hx Seizures: No Hx Asthma: No Hx COPD: No Additional medical history: chronic low back, L sciatica. bells palsy. anemia. depression. anxiety. L4-L5 - Surgical History Hx Cholecystectomy: Yes (1998) Additional Surgical History: back surgery (02/2013), Left wrist fracture repair (03/2014). x2 ectopic , Neck. abd - Social History Smoking Status: Never Smoker Substance Use Type: None - Medications Home Medications: Home Medications Medication Instructions Recorded Confirmed Last Taken Type Gabapentin [Neurontin] 800 mg PO QID 04/23/18 07/26/20 06/27/20 History 1200 oxyCODONE /ACETAMINOPHEN [Percocet 10 - 325 mg PO QID PRN 06/27/20 07/27/20 06/27/20 History 5/325 mg] 1300 Venlafaxine Xr [Effexor XR] 75 mg PO QDAY #30 capsule 07/03/20 07/26/20 Unknown Rx buPROPion [Wellbutrin] 100 mg PO BID@0800,1400 #60 tablet 07/03/20 07/26/20 Unknown Rx Carisoprodol [Soma] 350 mg PO DAILY 07/26/20 07/26/20 2 Weeks Ago History ~07/12/20 350 mg ARIPiprazole 5 mg PO QDAY #30 tablet 07/30/[address] [Depakote Dr] 500 mg PO BID #60 tablet 07/30/20 Unknown Rx Mirtazapine [Remeron 30mg TAB] 30 mg PO QHS #30 tablet 07/30/20 Unknown Rx ED Review of Systems ROS: Stated complaint: MH EVALUATION; SUICIDAL Other details as noted in HPI Comment: All other systems reviewed and negative Constitutional: denies: chills, fever Eyes: denies: eye pain, vision change Respiratory: denies: cough, shortness of breath Cardiovascular: denies: chest pain, palpitations Gastrointestinal: denies: abdominal pain, vomiting Genitourinary: denies: dysuria, discharge Musculoskeletal: back pain (chronic), arthralgia (chronic) Neurological: denies: headache, weakness Psychiatric: anxiety, depression, suicidal thoughts. denies: homicidal thoughts Physical Exam - Physical Exam Vital Signs: Vital Signs 11/01/20 10:33 Temperature 98.2 F Pulse Rate 93 H Respiratory 20 Rate Blood Pressure 146/99 O2 Sat by Pulse 98 Oximetry Physical Exam: GENERAL: The patient is well-developed well-nourished. HENT: Normocephalic. Atraumatic. Patient has moist mucous membranes. EYES: Extraocular motions are intact. NECK: Supple. Trachea is midline. CHEST/LUNGS: Clear to auscultation. There is no respiratory distress noted. HEART/CARDIOVASCULAR: Regular. There is no tachycardia. There is no murmur. ABDOMEN: Abdomen is soft, nontender. Patient has normal bowel sounds. SKIN: Skin is warm and dry. NEURO: The patient is awake, alert, and oriented. The patient is cooperative. Normal speech. MUSCULOSKELETAL: There is no tenderness or deformity. There is no limitation range of motion. PSYCH: Patient appears very anxious. ED Course Vital Signs 11/01/20 10:33 Temperature 98.2 F Pulse Rate 93 H Respiratory 20 Rate Blood Pressure 146/99 O2 Sat by Pulse 98 Oximetry ED Medical Decision Making - Lab Data Result diagrams: 11/01/20 10:42 11/01/20 10:42 Lab Results 11/01/20 11/01/20 11/01/20 Range/Units 10:42 10:42 10:42 WBC (4.5-11.0) K/mm3 RBC (3.65-5.03) M/mm3 Hgb (10.1-14.3) gm/dl Hct (30.3-42.9) % MCV (79-97) fl MCH (28-32) pg MCHC (30-34) % RDW (13.2-15.2) % Plt Count (140-440) K/mm3 Lymph % (Auto) (13.4-35.0) % [place] % (Auto) (0.0-7.3) % Eos % (Auto) (0.0-4.3) % Baso % (Auto) (0.0-1.8) % Lymph # (Auto) (1.2-5.4) K/mm3 [place] # (Auto) (0.0-0.8) K/mm3 Eos # (Auto) (0.0-0.4) K/mm3 Baso # (Auto) (0.0-0.1) K/mm3 Seg Neutrophils % (40.0-70.0) % Seg Neutrophils # (1.8-7.7) K/mm3 Sodium 136 L (137-145) mmol/L Potassium 3.7 (3.6-5.0) mmol/L Chloride 99.3 (98-107) mmol/L Carbon Dioxide 26 (22-30) mmol/L Anion Gap 14 mmol/L BUN 11 (7-17) mg/dL Creatinine 0.7 (0.6-1.2) mg/dL Estimated GFR > 60 ml/min BUN/Creatinine Ratio 16 % Glucose 243 H (65-100) mg/dL POC Glucose (70-105) mg/dL Calcium 9.4 (8.4-10.2) mg/dL Urine Color (Yellow) Urine Turbidity (Clear) Urine pH (5.0-7.0) Ur Specific [place] (1.003-1.030) Urine Protein (Negative) mg/dL Urine Glucose (UA) (Negative) mg/dL Urine Ketones (Negative) mg/dL Urine Blood (Negative) Urine Nitrite (Negative) Urine Bilirubin (Negative) Urine Urobilinogen (<2.0) mg/dL Ur Leukocyte Esterase (Negative) Urine WBC (Auto) (0.0-6.0) /HPF Urine RBC (Auto) (0.0-6.0) /HPF U Epithel Cells (Auto) (0-13.0) /HPF Urine Bacteria (Auto) (Negative) /HPF Urine Mucus /HPF Salicylates < 0.3 L (2.8-20.0) mg/dL Acetaminophen 7.2 L (10.0-30.0) ug/mL Ur Amphetamines Screen Plasma/Serum Alcohol (0-0.07) % 11/01/20 11/01/20 11/01/20 Range/Units 10:42 10:42 14:14 WBC 6.6 (4.5-11.0) K/mm3 RBC 5.04 H (3.65-5.03) M/mm3 Hgb 11.6 (10.1-14.3) gm/dl Hct 36.5 (30.3-42.9) % MCV 72 L (79-97) fl MCH 23 L (28-32) pg MCHC 32 (30-34) % RDW 17.5 H (13.2-15.2) % Plt Count 358 (140-440) K/mm3 Lymph % (Auto) 19.4 (13.4-35.0) % [place] % (Auto) 4.1 (0.0-7.3) % Eos % (Auto) 0.1 (0.0-4.3) % Baso % (Auto) 1.0 (0.0-1.8) % Lymph # (Auto) 1.3 (1.2-5.4) K/mm3 [place] # (Auto) 0.3 (0.0-0.8) K/mm3 Eos # (Auto) 0.0 (0.0-0.4) K/mm3 Baso # (Auto) 0.1 (0.0-0.1) K/mm3 Seg Neutrophils % 75.4 H (40.0-70.0) % Seg Neutrophils # 5.0 (1.8-7.7) K/mm3 Sodium (137-145) mmol/L Potassium (3.6-5.0) mmol/L Chloride (98-107) mmol/L Carbon Dioxide (22-30) mmol/L Anion Gap mmol/L BUN (7-17) mg/dL Creatinine (0.6-1.2) mg/dL Estimated GFR ml/min BUN/Creatinine Ratio % Glucose (65-100) mg/dL POC Glucose 126 H (70-105) mg/dL Calcium (8.4-10.2) mg/dL Urine Color (Yellow) Urine Turbidity (Clear) Urine pH (5.0-7.0) Ur Specific [place] (1.003-1.030) Urine Protein (Negative) mg/dL Urine Glucose (UA) (Negative) mg/dL Urine Ketones (Negative) mg/dL Urine Blood (Negative) Urine Nitrite (Negative) Urine Bilirubin (Negative) Urine Urobilinogen (<2.0) mg/dL Ur Leukocyte Esterase (Negative) Urine WBC (Auto) (0.0-6.0) /HPF Urine RBC (Auto) (0.0-6.0) /HPF U Epithel Cells (Auto) (0-13.0) /HPF Urine Bacteria (Auto) (Negative) /HPF Urine Mucus /HPF Salicylates (2.8-20.0) mg/dL Acetaminophen (10.0-30.0) ug/mL Ur Amphetamines Screen Plasma/Serum Alcohol < 0.01 (0-0.07) % 11/01/20 11/01/20 Range/Units Unknown Unknown WBC (4.5-11.0) K/mm3 RBC (3.65-5.03) M/mm3 Hgb (10.1-14.3) gm/dl Hct (30.3-42.9) % MCV (79-97) fl MCH (28-32) pg MCHC (30-34) % RDW (13.2-15.2) % Plt Count (140-440) K/mm3 Lymph % (Auto) (13.4-35.0) % [place] % (Auto) (0.0-7.3) % Eos % (Auto) (0.0-4.3) % Baso % (Auto) (0.0-1.8) % Lymph # (Auto) (1.2-5.4) K/mm3 [place] # (Auto) (0.0-0.8) K/mm3 Eos # (Auto) (0.0-0.4) K/mm3 Baso # (Auto) (0.0-0.1) K/mm3 Seg Neutrophils % (40.0-70.0) % Seg Neutrophils # (1.8-7.7) K/mm3 Sodium (137-145) mmol/L Potassium (3.6-5.0) mmol/L Chloride (98-107) mmol/L Carbon Dioxide (22-30) mmol/L Anion Gap mmol/L BUN (7-17) mg/dL Creatinine (0.6-1.2) mg/dL Estimated GFR ml/min BUN/Creatinine Ratio % Glucose (65-100) mg/dL POC Glucose (70-105) mg/dL Calcium (8.4-10.2) mg/dL Urine Color Yellow (Yellow) Urine Turbidity Clear (Clear) Urine pH 5.0 (5.0-7.0) Ur Specific [place] 1.045 H (1.003-1.030) Urine Protein 30 mg/dl (Negative) mg/dL Urine Glucose (UA) Neg (Negative) mg/dL Urine Ketones Neg (Negative) mg/dL Urine Blood Neg (Negative) Urine Nitrite Neg (Negative) Urine Bilirubin Neg (Negative) Urine Urobilinogen 2.0 (<2.0) mg/dL Ur Leukocyte Esterase Neg (Negative) Urine WBC (Auto) < 1.0 (0.0-6.0) /HPF Urine RBC (Auto) 1.0 (0.0-6.0) /HPF U Epithel Cells (Auto) 1.0 (0-13.0) /HPF Urine Bacteria (Auto) 1+ (Negative) /HPF Urine Mucus 2+ /HPF Salicylates (2.8-20.0) mg/dL Acetaminophen (10.0-30.0) ug/mL Ur Amphetamines Screen Presumptive positive Plasma/Serum Alcohol (0-0.07) % - Medical Decision Making This patient presents to the emergency department with a complaint of depression, anxiety, and suicidal ideations with a plan to walk out in front of traffic to commit suicide. For this reason she has been made a 1013. The patient was tearful out in triage and appears very anxious upon my initial examination. The patient's labs have been mostly unremarkable except for a UDS with a presumptive positive for amphetamines. Vital signs have been stable throughout her ED course thus far. The patient was seen by the psychiatric assessment team who agrees with the plan for inpatient stabilization and it appears that the patient has been accepted [facility]. Critical Care Time: No Critical care attestation.: If time is entered above; I have spent that time in minutes in the direct care of this critically ill patient, excluding procedure time. ED Disposition Clinical Impression: Suicidal ideations, Amphetamine abuse, COCO (generalized anxiety disorder) Disposition: DC-09 OP ADMIT IP TO THIS HOSP Is pt being admited?: Yes Condition: Stable Time of Disposition: 15:11
[2020-11-01 11:03] LABS: Basophils # (Auto) 0.1 K/mm3 (0.0-0.1); Eosinophils % (Auto) 0.1 % (0.0-4.3); Hematocrit 36.5 % (30.3-42.9); Hemoglobin 11.6 gm/dl (10.1-14.3); Lymphocytes # (Auto) 1.3 K/mm3 (1.2-5.4); Lymphocytes % (Auto) 19.4 % (13.4-35.0); Mean Corpuscular HGB Conc 32 % (30-34); Mean Corpuscular Volume 72 fl (79-97); Monocytes # (Auto) 0.3 K/mm3 (0.0-0.8); Monocytes % (Auto) 4.1 % (0.0-7.3); Platelet Count 358 K/mm3 (140-440); Red Blood Count 5.04 M/mm3 (3.65-5.03); Red Cell Distribution Width 17.5 % (13.2-15.2)
[2020-11-01 11:25] LABS: Blood Urea Nitrogen 11 mg/dL (7-17); Calcium 9.4 mg/dL (8.4-10.2); Hemolysis Index 1
[2020-11-01 11:34] LABS: BUN/Creatinine Ratio 16
[2020-11-01 14:41] LABS: Bacteria,Urine 1+ /HPF (Negative); Bilirubin,Urine NEG (Negative); Blood,Urine NEG (Negative); Color,Urine Yellow (Yellow); Mucus,Urine 2+ /HPF; WBC,Urine < 1.0 /HPF (0.0-6.0)
[2020-11-01 14:49] LABS: Amphetamine Screen,Urine PRESUMPTIVE POSITIVE; Benzodiazepines Screen,Urine PRESUMPTIVE NEGATIVE; Cannabinoid Screen,Urine PRESUMPTIVE NEGATIVE; Cocaine Screen,Urine PRESUMPTIVE NEGATIVE; Methadone Screen,Urine PRESUMPTIVE NEGATIVE; Opiate Screen,Urine PRESUMPTIVE NEGATIVE
[2020-11-01] MEDS ORDERED: ACETAMINOPHEN 325 MG TAB PO ONE (17:00)
[2020-11-01 17:49] LABS: HCG Qualitative,Urine Negative (Negative)
[2020-11-01 21:16] VITALS: BP 151/91
== END 2020-11-01 21:16 | disposition admitted as inpatient to this hospital (09) ==
LOC: ED 10:24
DX: R45.851 Suicidal ideations (principal); F41.9 Anxiety disorder, unspecified; F15.10 Other stimulant abuse, uncomplicated; M19.91 Primary osteoarthritis, unspecified site; Z90.49 Acquired absence of other specified parts of digestive tract; Z98.890 Other specified postprocedural states; Z79.899 Other long term (current) drug therapy; Z88.8 Allergy status to other drugs, medicaments and biological substances
CPT/HCPCS: 36415; 80048; 80307; 80320; 81001; 81025; 82962; 85025; G0480

== ENCOUNTER 2021-03-12 10:45 | Emergency (ER) | payer BC, MEDICARE ==
--- NOTE | 2021-03-12 12:30 | Event Note ---
ED Screening Note Date of service: 03/12/21 Time: 12:28 ED Screening Note: 50-year-old female patient with history of bipolar disorder, anxiety, depression, and previous suicide attempt presents to emergency department with complaints of chronic pain and suicidal ideations for 2 days. Patient states she has been having thoughts of hurting herself due to her chronic pain. States she is under the care of a chronic pain management practice but has been unable to obtain refills of her medications. She does not currently have a specific plan for completing suicide. States she has required inpatient psychiatric care on previous occasions for her mental health. No homicidal ideations. General: Awake, appropriately interactive, no acute distress. Neck: Supple. Full range of motion intact. Cardiovascular: Normal peripheral perfusion. Pulmonary: No respiratory distress. Patient is speaking normally without use of accessory muscles. Skin: No apparent rashes or lesions. Neurological: No facial asymmetry. Speech is clear. Follows commands. Patient is alert and oriented. Musculoskeletal: Moves all four extremities spontaneously with normal range of motion. Psych: Cooperative. Appropriate mood and affect. I have greeted and performed a focused rapid initial assessment of this patient. A comprehensive ED assessment and evaluation of the patient, analysis of all test results, and completion of the medical decision-making process will be conducted by additional ED providers. This initial assessment/diagnostic orders/clinical plan/treatment(s) is/are subject to change based on patients health status, clinical progression and re-assessment. Further treatment and workup at subsequent clinical provider's discretion. Patient/guardian urged not to elope from the ED as their condition may be serious if not clinically assessed and managed.
[2021-03-12 13:32] LABS: Basophils # (Auto) 0.1 K/mm3 (0.0-0.1); Basophils % (Auto) 1.1 % (0.0-1.8); Eosinophils % (Auto) 0.6 % (0.0-4.3); Hematocrit 37.8 % (30.3-42.9); Hemoglobin 11.9 gm/dl (10.1-14.3); Lymphocytes # (Auto) 1.7 K/mm3 (1.2-5.4); Lymphocytes % (Auto) 27.6 % (13.4-35.0); Mean Corpuscular HGB Conc 32 % (30-34); Mean Corpuscular Volume 71 fl (79-97); Monocytes # (Auto) 0.3 K/mm3 (0.0-0.8); Monocytes % (Auto) 5.3 % (0.0-7.3); Platelet Count 312 K/mm3 (140-440); Red Cell Distribution Width 16.3 % (13.2-15.2)
[2021-03-12 13:37] LABS: Blood Urea Nitrogen 11 mg/dL (7-17); Hemolysis Index 37
[2021-03-12] MEDS ORDERED: LORazepam 1 MG TAB PO ONE (14:03)
[2021-03-12] MEDS ORDERED: GABAPENTIN 100 MG CAP PO ONE ×2 (14:03→15:03)
[2021-03-12] MEDS ORDERED: oxyCODONE /ACETAMINOPHEN 5-325MG TAB PO ONE (14:06)
[2021-03-12 14:24] LABS: BUN/Creatinine Ratio 16
[2021-03-12 14:29] LABS: Bacteria,Urine 1+ /HPF (Negative); Bilirubin,Urine NEG (Negative); Blood,Urine NEG (Negative); Color,Urine Yellow (Yellow); Mucus,Urine FEW /HPF; Urobilinogen,Urine < 2.0 mg/dL (<2.0)
[2021-03-12] MEDS ORDERED: CYCLOBENZAPRINE 10 MG TAB PO ONE (15:03)
[2021-03-12] MEDS ORDERED: GABAPENTIN 400 MG CAP PO ONE (15:03)
[2021-03-12 15:20] LABS: Amphetamine Screen,Urine PRESUMPTIVE NEGATIVE; Benzodiazepines Screen,Urine PRESUMPTIVE NEGATIVE; Cannabinoid Screen,Urine PRESUMPTIVE NEGATIVE; Cocaine Screen,Urine PRESUMPTIVE NEGATIVE; Methadone Screen,Urine PRESUMPTIVE NEGATIVE; Opiate Screen,Urine PRESUMPTIVE NEGATIVE
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
[2021-03-12] MEDS ORDERED: traMADol 50 MG TAB PO ONE (19:52)
[2021-03-12 20:03] VITALS: BP 112/81
== END 2021-03-12 21:28 ==
LOC: ED 10:45
DX: G89.29 Other chronic pain (principal); R45.851 Suicidal ideations; M19.90 Unspecified osteoarthritis, unspecified site; D64.9 Anemia, unspecified; F32.9 Major depressive disorder, single episode, unspecified; F41.9 Anxiety disorder, unspecified; Z88.8 Allergy status to other drugs, medicaments and biological substances; Z98.890 Other specified postprocedural states; Z79.899 Other long term (current) drug therapy
CPT/HCPCS: 36415; 80048; 80307; 80320; 81001; 85025; G0480

== ENCOUNTER 2021-04-14 08:47 | Emergency (ER) | payer BC, MEDICARE ==
[2021-04-14 09:32] VITALS: BP 147/100
[2021-04-14] MEDS ORDERED: HYDROcodone/ACETAMINOPHEN 5-325 MG TAB PO ONE (10:17)
--- NOTE | 2021-04-14 10:23 | Emergency Department Report ---
ED Fall HPI - General Chief Complaint: Fall Stated Complaint: FALL, RIB PAIN Time Seen by Provider: 04/14/21 10:12 Source: patient Mode of arrival: Ambulatory - History of Present Illness Initial Comments: Patient is a 50-year-old female presents emergency room complaints of a fall that occurred this morning. Patient states that she walks with a cane and she accidentally slipped and fell in the bathroom. She states that she has right rib pain and right lower back pain. She denies any hitting her head or loss of consciousness. She denies any chest pain, shortness of breath, dizziness prior to the fall. She denies any vomiting, vision changes, numbness, weakness, bowel or bladder incontinence. Patient is able to ambulate. Patient has a past medical history of chronic pain and sees a pain specialist. - Related Data Home Medications Medication Instructions Recorded Confirmed Last Taken Gabapentin [Neurontin] 800 mg PO QID 04/23/18 03/12/21 06/27/20 1200 oxyCODONE /ACETAMINOPHEN [Percocet 10 - 325 mg PO QID PRN 06/27/20 03/12/21 06/27/20 5/325 mg] 1300 Carisoprodol [Soma] 350 mg PO DAILY 07/26/20 03/12/21 2 Weeks Ago ~07/12/20 350 mg traZODone 50 mg PO QHS 03/12/21 03/12/21 Unknown Allergies Allergy/AdvReac Type Severity Reaction Status Date / Time ibuprofen Allergy Itching Verified 03/23/21 20:34 ketorolac tromethamine Allergy Rash Verified 03/23/21 09:19 [From Toradol] ED Review of Systems ROS: Stated complaint: FALL, RIB PAIN Other details as noted in HPI Comment: All other systems reviewed and negative ED Past Medical Hx - Past Medical History Previous Medical History?: Yes Hx Congestive Heart Failure: No Hx Diabetes: No Hx Renal Disease: No Hx Arthritis: Yes (DJD) Hx Seizures: No Hx Asthma: No Hx COPD: No Hx Dementia: No Additional medical history: chronic low back, L sciatica. bells palsy. anemia. depression. anxiety. L4-L5 - Surgical History Past Surgical History?: Yes Hx Cholecystectomy: Yes (1998) Hx Appendectomy: No Additional Surgical History: back surgery (02/2013), Left wrist fracture repair (03/2014). x2 ectopic , Neck. abd - Social History Smoking Status: Never Smoker Substance Use Type: Alcohol - Medications Home Medications: Home Medications Medication Instructions Recorded Confirmed Last Taken Type Gabapentin [Neurontin] 800 mg PO QID 04/23/18 03/12/21 06/27/20 History 1200 oxyCODONE /ACETAMINOPHEN [Percocet 10 - 325 mg PO QID PRN 06/27/20 03/12/21 06/27/20 History 5/325 mg] 1300 Carisoprodol [Soma] 350 mg PO DAILY 07/26/20 03/12/21 2 Weeks Ago History ~07/12/20 350 mg traZODone 50 mg PO QHS 03/12/21 03/12/21 Unknown History ED Physical Exam - General Limitations: No Limitations General appearance: alert, in no apparent distress - Head Head exam: Present: atraumatic, normocephalic - Eye Eye exam: Present: normal appearance - ENT ENT exam: Present: mucous membranes moist - Neck Neck exam: Present: normal inspection, full ROM. Absent: tenderness, meningismus - Respiratory Respiratory exam: Present: normal lung sounds bilaterally, chest wall tenderness (right lateral rib ttp, no ecchymosis, no edema, no crepitus, no deformity, outpatient coder: DEV white). Absent: respiratory distress, wheezes, rales, rhonchi, accessory muscle use, decreased breath sounds, prolonged expiratory - Cardiovascular Cardiovascular Exam: Present: regular rate, normal rhythm, normal heart sounds. Absent: systolic murmur, diastolic murmur, rubs, gallop - Back Exam Back exam: Present: normal inspection, full ROM, paraspinal tenderness (right lumbar paraspinal ttp, no midline C-spine, T-spine or L-spine ttp, no step offs, no deformities ). Absent: vertebral tenderness - Neurological Exam Neurological exam: Present: alert, oriented X3, CN II-XII intact, normal gait. Absent: motor sensory deficit - Psychiatric Psychiatric exam: Present: normal affect, normal mood - Skin Skin exam: Present: warm, dry, intact ED Course Vital Signs 04/14/21 09:27 Temperature 98.9 F Pulse Rate 83 Respiratory 20 Rate Blood Pressure 147/100 O2 Sat by Pulse 99 Oximetry ED Medical Decision Making - Radiology Data Radiology results: report reviewed Ordering Physician: ANUSHKA ALEX Date of Service: 04/14/21 Procedure(s): XR ribs UNI w PA Chest 3+V RT Accession Number(s): [id number] cc: ANUSHKA ALEX Fluoro Time In Minutes: Superficial HISTORY: COMPARISON: None. TECHNIQUE: 2 views of the left ribs were obtained. FINDINGS: Bones: No fracture or dislocation. Joint spaces: Maintained. Soft tissues: No significant abnormality. Additional findings: None. IMPRESSION: 1. No significant abnormality. Signer Name: Jabier Camacho MD Signed: 04/14/2021 11:47 AM Workstation Name: [id number] Transcribed By: FILIPPO Dictated By: Jabier Camacho MD Electronically Authenticated By: Jabier Camacho MD Signed Date/Time: 04/14/21 1147 DD/ 1146 TD/TT: Print Ordering Physician: ANUSHKA ALEX Date of Service: 04/14/21 Procedure(s): XR spine lumbosacral 2-3V Accession Number(s): [id number] cc: ANUSHKA ALEX Fluoro Time In Minutes: CLINICAL DATA: fall, low back pain TECHNICAL DATA: AP and lateral views lumbar spine. FINDINGS: The bone mineralization is normal. Vertebral body heights are normal. Intervertebral disc spaces are well maintained except for slight narrowing in the mid and lower region.. Pedicles and spinous processes are normal in alignment. SI joints and sacrum are normal. IMPRESSION: No acute traumatic abnormality. Signer Name: Jabier Camacho MD Signed: 04/14/2021 11:45 AM Workstation Name: [id number] Transcribed By: FILIPPO Dictated By: Jabier Camacho MD Electronically Authenticated By: Jabier Camacho MD Signed Date/Time: 04/14/21 1145 DD/ 1145 TD/TT: - Medical Decision Making Patient is a 50-year-old female presents emergency room complaints of a fall that occurred this morning. Patient states that she walks with a cane and she accidentally slipped and fell in the bathroom. She states that she has right rib pain and right lower back pain. She denies any hitting her head or loss of consciousness. She denies any chest pain, shortness of breath, dizziness prior to the fall. She denies any vomiting, vision changes, numbness, weakness, bowel or bladder incontinence. Patient is able to ambulate. Patient has a past medical history of chronic pain and sees a pain specialist. Vitals are stable. On exam:right lateral rib ttp, no ecchymosis, no edema, no crepitus, no deformity, outpatient coder: cindy RN, right lumbar paraspinal ttp, no midline C- spine, T-spine or L-spine ttp, no step offs, no deformities, no focal neuro deficits. X-ray right ribs with chest:1. No significant abnormality. X-ray lumbar spine: No acute traumatic abnormality. Patient given 1 tablet of Talala while in the emergency department as she did not drive for pain relief. Patient will not be given any prescriptions as she sees a pain specialist and is on a pain contract. Discussed all results with patient answer questions. Advised patient May take Tylenol as needed for pain. Follow-up with your primary care doctor. Follow-up with your pain specialist. Return to emergency room for new or worsening symptoms. Critical care attestation.: If time is entered above; I have spent that time in minutes in the direct care of this critically ill patient, excluding procedure time. ED Disposition Clinical Impression: Rib pain on right side Fall Qualifiers: Encounter type: initial encounter Qualified Code(s): W19.XXXA - Unspecified fall, initial encounter Low back pain Qualifiers: Chronicity: acute Back pain laterality: right Sciatica presence: without sciatica Qualified Code(s): M54.5 - Low back pain Disposition: TO HOME OR SELFCARE Is pt being admited?: No Does the pt Need Aspirin: No Condition: Stable Instructions: Musculoskeletal Pain Additional Instructions: May take Tylenol as needed for pain. Follow-up with your primary care doctor. Follow-up with your pain specialist. Return to emergency room for new or worsening symptoms. Referrals: KASSANDRA KELLY MD [Primary Care Provider] - 2-3 Days your, pain specialist [Other] - 2-3 Days Time of Disposition: 12:05 Print Language: SCOTTISH
--- NOTE | 2021-04-14 11:50 | XRay Report ---
CLINICAL DATA: fall, low back pain TECHNICAL DATA: AP and lateral views lumbar spine. FINDINGS: The bone mineralization is normal. Vertebral body heights are normal. Intervertebral disc spaces are well maintained except for slight narrowing in the mid and lower region.. Pedicles and spinous proces ses are normal in alignment. SI joints and sacrum are normal. IMPRESSION: No acute traumatic abnormality. Signer Name: Jabier Camacho MD Signed: 04/14/2021 11:45 AM Workstation Name: [id number]
--- NOTE | 2021-04-14 11:51 | XRay Report ---
Superficial HISTORY: COMPARISON: None. TECHNIQUE: 2 views of the left ribs were obtained. FINDINGS: Bones: No fracture or dislocation. Joint spaces: Maintained. Soft tissues: No significant abnormality. Additional findings: None. IMPRESSION: 1. No significant abnormality. Signer Name: Jabier Camacho MD Signed: 04/14/2021 11:47 AM Workstation Name: [id number]
== END 2021-04-14 12:15 | disposition home or self-care (01) ==
LOC: ED 08:47
DX: M54.5 Low back pain (principal); R07.81 Pleurodynia; D64.9 Anemia, unspecified; F41.9 Anxiety disorder, unspecified; F32.9 Major depressive disorder, single episode, unspecified; Z90.49 Acquired absence of other specified parts of digestive tract; Z98.890 Other specified postprocedural states; Z88.8 Allergy status to other drugs, medicaments and biological substances; Z79.899 Other long term (current) drug therapy; W01.0XXA Fall on same level from slipping, tripping and stumbling without subsequent striking against object, initial encounter; Y93.89 Activity, other specified; Y92.238 Other place in hospital as the place of occurrence of the external cause; Y99.8 Other external cause status
CPT/HCPCS: 72100; 99283

== ENCOUNTER 2021-07-11 07:34 | Emergency (ER) | payer BC, MEDICARE ==
[2021-07-11] MEDS ORDERED: ONDANSETRON 4 MG/2 ML INJ IV ONE (08:10)
[2021-07-11] MEDS ORDERED: SODIUM CHLORIDE 0.9% 1000 ML 1,000 ML IV ONE (08:10)
--- NOTE | 2021-07-11 08:10 | Event Note ---
ED Screening Note Date of service: 07/11/21 ED Screening Note: comes to ER w abd pain co 1 m hx covid- making her so sick she wants to . tachycardia with low grade fever Discussed with Dr Puga This initial assessment/diagnostic orders/clinical plan/treatment(s) is/are subject to change based on patients health status, clinical progression and re- assessment by fellow clinical providers in the ED. Further treatment and workup at subsequent clinical providers discretion. Patient/guardian urged not to elope from the ED as their condition may be serious if not clinically assessed and managed. Initial orders include: medical clearance- to room 1- then reeval if psych needed
--- NOTE | 2021-07-11 09:05 | XRay Report ---
CHEST 1 VIEW INDICATION / CLINICAL INFORMATION: Medical Clearance Psych. COMPARISON: 02/04/2020 FINDINGS: SUPPORT DEVICES: None. HEART / MEDIASTINUM: No significant abnormality. LUNGS / PLEURA: No significant pulmonary or pleural abnormality. No pneumothorax. ADDITIONAL FINDINGS: No significant additional findings. IMPRESSION: 1. No acute findings. No interval change. Signer Name: Kelly Harris MD Signed: 07/11/2021 9:00 AM Workstation Name: [id number]
--- NOTE | 2021-07-11 09:17 | Emergency Department Report ---
ED Psych HPI - General Chief Complaint: Abdominal Pain Stated Complaint: POSS COVID POSITIVE/DEPRESSED Time Seen by Provider: 07/11/21 08:09 Source: patient Mode of arrival: Wheelchair - History of Present Illness Initial Comments: 50-year-old female, history of chronic neck and back pain with herniated disc, anxiety, depression, bipolar disorder, presents to ED with suicidal ideations. Patient has no plan currently. Patient states she initially tested positive for COVID-19 over 1 month ago. Repeat Covid test last week was still positive. Patient reports cough, shortness of breath, loss of taste, diarrhea, abdominal pain, body aches. Patient states she wants to because she is sick of feeling this way. She states she is sick of being sick with chronic issues. Patient states she is out of work because of her back and neck injuries. She states she has a 16-year-old daughter who is currently staying with her father since patient tested positive for Covid. Patient states she has been off her bipolar medication for approximately 2 to 3 months. MD Complaint: suicidal ideation Associated Psychiatric Symptoms: depression, suicidal ideation Improves With: none Worsens With: none Context: not taking psychiatric, significant life stressor If Self Harm: admits thoughts of - Related Data Home Medications Medication Instructions Recorded Confirmed Last Taken Gabapentin [Neurontin] 800 mg PO QID 04/23/18 07/11/21 06/27/20 1200 oxyCODONE /ACETAMINOPHEN [Percocet 10 - 325 mg PO QID PRN 06/27/20 07/11/21 06/27/20 5/325 mg] 1300 Carisoprodol [Soma] 350 mg PO DAILY 07/26/20 07/11/21 2 Weeks Ago ~07/12/20 350 mg traZODone 50 mg PO QHS 03/12/21 07/11/21 Unknown Previous Rx's Medication Instructions Recorded Last Taken Type Divalproex [Anthony MORROW] 125 mg PO BID 30 Days #60 tablet 07/12/21 Unknown Rx hydrOXYzine PAMOATE [Vistaril] 25 mg PO BID 30 Days #60 capsule 07/12/21 Unknown Rx traZODone [Desyrel] 50 mg PO QHS 30 Days #30 tab 07/12/21 Unknown Rx Allergies Allergy/AdvReac Type Severity Reaction Status Date / Time ibuprofen Allergy Itching Verified 03/23/21 20:34 ketorolac tromethamine Allergy Rash Verified 03/23/21 09:19 [From Toradol] ED Review of Systems ROS: Stated complaint: POSS COVID POSITIVE/DEPRESSED Other details as noted in HPI Comment: All other systems reviewed and negative Constitutional: fever ENT: congestion Respiratory: cough Gastrointestinal: abdominal pain, diarrhea Musculoskeletal: myalgia ED Past Medical Hx - Past Medical History Hx Congestive Heart Failure: No Hx Diabetes: No Hx Renal Disease: No Hx Arthritis: Yes (DJD) Hx Seizures: No Hx Asthma: No Hx COPD: No Hx Dementia: No Additional medical history: chronic low back, L sciatica. bells palsy. anemia. depression. anxiety. L4-L5 - Surgical History Hx Cholecystectomy: Yes (1998) Hx Appendectomy: No Additional Surgical History: back surgery (02/2013), Left wrist fracture repair (03/2014). x2 ectopic , Neck. abd - Social History Smoking Status: Never Smoker - Medications Home Medications: Home Medications Medication Instructions Recorded Confirmed Last Taken Type Gabapentin [Neurontin] 800 mg PO QID 04/23/18 07/11/21 06/27/20 History 1200 oxyCODONE /ACETAMINOPHEN [Percocet 10 - 325 mg PO QID PRN 06/27/20 07/11/21 06/27/20 History 5/325 mg] 1300 Carisoprodol [Soma] 350 mg PO DAILY 07/26/20 07/11/21 2 Weeks Ago History ~07/12/20 350 mg traZODone 50 mg PO QHS 03/12/21 07/11/[address] [DepJovany DR] 125 mg PO BID 30 Days #60 tablet 07/12/21 Unknown Rx hydrOXYzine PAMOATE [Vistaril] 25 mg PO BID 30 Days #60 capsule 07/12/21 Unknown Rx traZODone [Desyrel] 50 mg PO QHS 30 Days #30 tab 07/12/21 Unknown Rx ED Physical Exam - General Limitations: No Limitations General appearance: alert, in no apparent distress - Head Head exam: Present: atraumatic, normocephalic - Eye Eye exam: Present: normal appearance, EOMI - ENT ENT exam: Present: mucous membranes moist - Neck Neck exam: Present: normal inspection - Respiratory Respiratory exam: Present: normal lung sounds bilaterally. Absent: respiratory distress - Cardiovascular Cardiovascular Exam: Present: regular rate, normal rhythm - GI/Abdominal GI/Abdominal exam: Present: soft. Absent: distended, tenderness - Extremities Exam Extremities exam: Present: normal inspection - Neurological Exam Neurological exam: Present: alert, oriented X3 - Psychiatric Psychiatric exam: Present: normal affect, normal mood - Skin Skin exam: Present: warm, dry, intact, normal color ED Course Vital Signs 07/11/21 07/11/21 07/11/21 07:42 09:10 09:11 Temperature 99.2 F 99.3 F Pulse Rate 108 H 90 Respiratory 20 16 Rate Blood Pressure 114/82 151/114 [Right] O2 Sat by Pulse 99 99 96 Oximetry 07/11/21 07/11/21 07/11/21 20:00 21:49 23:21 Temperature 99.0 F Pulse Rate 94 H Respiratory 18 20 Rate Blood Pressure 126/86 [Right] O2 Sat by Pulse 98 98 Oximetry 07/12/21 07/12/21 07/12/21 00:21 08:25 13:40 Temperature 97.5 F L Pulse Rate 80 Respiratory 20 18 Rate Blood Pressure 160/70 [Right] O2 Sat by Pulse 97 97 Oximetry ED Medical Decision Making - Lab Data Result diagrams: 07/11/21 09:05 07/11/21 09:05 - Radiology Data Radiology results: report reviewed, image reviewed - Medical Decision Making 50-year-old female presents to ED reporting that she is Covid positive, complaining of abdominal pain, vomiting, diarrhea. Patient reports SI secondary to all of her chronic illnesses. Chest x-ray and abdominal x-ray are both normal. No vomiting here in the ED. Labs are unremarkable. Patient is medically clear for mental health evaluation. Critical care attestation.: If time is entered above; I have spent that time in minutes in the direct care of this critically ill patient, excluding procedure time. ED Disposition Clinical Impression: Suicidal ideation, Bipolar disorder, COVID-19 Disposition: 01 HOME / SELF CARE / HOMELESS Is pt being admited?: No Condition: Stable Instructions: Abdominal Pain (ED) Additional Instructions: OUTPATIENT MENTAL HEALTH RESOURCES [facility], [facility] Xavier Márquez MD: [address] [place] [address] [place] [address] [facility]: [facility] [address] [place] [address] [place], [place] [id number] [phone] [facility]: [facility]: [address] [place] [address] [facility] [id number] [facility]: Gee Beltran MD: [address] [id number] [facility]: [address] [place], [place] [id number] [phone] [place] [facility] LINE: Prescriptions: traZODone [Desyrel] 50 mg PO QHS 30 Days #[address] [DepaKOTE DR] 125 mg PO BID 30 Days #60 tablet hydrOXYzine PAMOATE [Vistaril] 25 mg PO BID 30 Days #60 capsule Referrals: PRIMARY CARE, [Primary Care Provider] - 3-5 Days
[2021-07-11 09:31] LABS: Hematocrit 35.7 % (30.3-42.9); Hemoglobin 11.3 gm/dl (10.1-14.3); Mean Corpuscular HGB Conc 32 % (30-34); Platelet Count 342 K/mm3 (140-440); Red Blood Count 5.28 M/mm3 (3.65-5.03)
[2021-07-11 09:38] LABS: Mean Corpuscular Volume 68 fl (79-97)
[2021-07-11 09:39] LABS: Alanine Aminotransferase 8 units/L (7-56); Albumin 4.1 g/dL (3.9-5); BUN/Creatinine Ratio 22; Bilirubin,Direct < 0.2 mg/dL (0-0.2); Blood Urea Nitrogen 13 mg/dL (7-17); Calcium 9.7 mg/dL (8.4-10.2); Hemolysis Index 1
--- NOTE | 2021-07-11 10:02 | XRay Report ---
ABDOMEN 1 VIEW INDICATION / CLINICAL INFORMATION: vomiting, abd pain. COMPARISON: Radiograph 05/04/2020 FINDINGS: TUBES / LINES: None. BOWEL GAS PATTERN: There are a few nondilated gas-filled small bowel loops in the left abdomen but no definite signs of obstruction. FREE AIR / EXTRALUMINAL GAS: None seen. ADDITIONAL FINDINGS: Cholecystectomy clips and postsurgical changes of the stomach are unchanged. IMPRESSION: 1. No significant abnormality. Signer Name: Ashish Herring MD Signed: 07/11/2021 9:58 AM Workstation Name: [email or web address]
[2021-07-11] MEDS ORDERED: GABAPENTIN 400 MG CAP PO ONE (10:30)
--- NOTE | 2021-07-11 11:09 | Consultation ---
History of Present Illness - Reason for Consult Consult date: 07/11/21 Reason for consult: SI - History of Present Psychiatric Illness Per Nurse Note: 50-year-old female, history of chronic neck and back pain with herniated disc, anxiety, depression, bipolar disorder, presents to ED with suicidal ideations. Patient has no plan currently. Patient states she initially tested positive for COVID-19 over 1 month ago. Repeat Covid test last week was still positive. Patient reports cough, shortness of breath, loss of taste, diarrhea, abdominal pain, body aches. Patient states she wants to because she is sick of feeling this way. She states she is sick of being sick with chronic issues. Patient states she is out of work because of her back and neck injuries. She states she has a 16-year-old daughter who is currently staying with her father since patient tested positive for Covid. Patient states she has been off her bipolar medication for approximately 2 to 3 months. Julee Kay is a 50y/o female patient who was seen today. SHe is a/o x 3. Upon evaluating the patient she is sobbing loudly and rocking back and forth. She says "I'm hurting. I'm tired of being sick and I can't like like this any more." The patient says "I'm just tired. I feel like I want to do something to myself to end all of this." She denies having a plan. The patient says she tested positive for COVID about a month ago. The patient says she has a history of Bi polar and have been off of her meds for two months. She says "I thought I was better but I see I'm not." She denies hallucinations, but states "I used to but not today." Psychiatric History Diagnoses: Bipolar, depression, anxiety Suicide attempts or Self-harm behavior: Once Prior psychiatric hospitalizations: four times Substance Abuse history: Denies Previous psychiatric medications tried: no currently Outpatient treatment: not currently PAST MEDICAL HISTORY: None reported Family Psychiatric History: None reported or documented SOCIAL HISTORY Marital Status: Single Living Arrangements: alone with child Employment Status: Disabled Access to guns/weapons: Denies Education: 2 years of college History of Abuse: Denies Legal History: none reported REVIEW OF SYSTEMS Constitutional: Negative for weight loss ENT: Negative for stridor Respiratory: Negative for cough or hemoptysis All other systems reviewed and are negative MENTAL STATUS EXAMINATION General Appearance: Dressed appropriately Behavior: anxious, depressed Mood: "depressed" Affect and affective range: sobbing Thought Process: goal directed Speech: normal rate and volume Thought Content: Suicidal Ideation: Yes Homicidal Ideation: Denies HI Hallucinations: Denies Delusions: none elicited Insight and Judgment: Limited Memory/Cognition: Limited Attention: Normal ASSESSMENT Bipolar Disorder, Current Episode Depressed Generalize Anxiety Disorder Treatment Plan [address] 125mg po BID Vistaril 25mg po BID Trazodone 50mg po qhs Sitter: Defer to medical Medical: Per [facility] Disposition: Recommend acute psychiatric inpatient treatment Will follow. Thanks Case staffed with Dr. Dawkins Medications and Allergies Allergies Allergy/AdvReac Type Severity Reaction Status Date / Time ibuprofen Allergy Itching Verified 03/23/21 20:34 ketorolac tromethamine Allergy Rash Verified 03/23/21 09:19 [From Toradol] Home Medications Medication Instructions Recorded Confirmed Last Taken Type Gabapentin [Neurontin] 800 mg PO QID 04/23/18 03/12/21 06/27/20 History 1200 oxyCODONE /ACETAMINOPHEN [Percocet 10 - 325 mg PO QID PRN 06/27/20 03/12/21 06/27/20 History 5/325 mg] 1300 Carisoprodol [Soma] 350 mg PO DAILY 07/26/20 03/12/21 2 Weeks Ago History ~07/12/20 350 mg traZODone 50 mg PO QHS 03/12/21 03/12/21 Unknown History Mental Status Exam - Vital signs Last Vital Signs Temp 99.3 F 07/11/21 09:10 Pulse 90 07/11/21 09:10 Resp 16 07/11/21 09:10 BP 151/114 07/11/21 09:10 Pulse Ox 96 07/11/21 09:11 Results Result Diagrams: 07/11/21 09:05 07/11/21 09:05 Abnormal lab results 07/11/21 07/11/21 07/11/21 Range/Units 09:05 09:05 09:05 RBC 5.28 H (3.65-5.03) M/mm3 MCV 68 L (79-97) fl MCH 21 L (28-32) pg RDW 20.0 H (13.2-15.2) % Glucose 176 H (65-100) mg/dL Total Protein 8.4 H (6.3-8.2) g/dL Salicylates < 0.3 L (2.8-20.0) mg/dL Acetaminophen (10.0-30.0) ug/mL 07/11/21 Range/Units 09:05 RBC (3.65-5.03) M/mm3 MCV (79-97) fl MCH (28-32) pg RDW (13.2-15.2) % Glucose (65-100) mg/dL Total Protein (6.3-8.2) g/dL Salicylates (2.8-20.0) mg/dL Acetaminophen 5.0 L (10.0-30.0) ug/mL All other labs normal.
[2021-07-11] MEDS ORDERED: LORazepam 2 MG/ML VIAL IM ONE (11:43)
[2021-07-11] MEDS ORDERED: LORazepam 2 MG/ML VIAL IV PRN (11:48)
[2021-07-11] MEDS: hydrOXYzine PAMOATE 25 MG CAP PO SCH ×2 (11:54→21:59)
[2021-07-11] MEDS: DIVALPROEX DR 125 MG TAB PO SCH ×2 (11:54→21:59)
[2021-07-11] MEDS: GABAPENTIN 400 MG CAP PO SCH ×2 (18:00→21:59)
[2021-07-11] MEDS ORDERED: NON-FORMULARY EACH (Gabapentin [Neurontin] 600 MG Tablet) PO SCH (18:00)
[2021-07-11 19:31] LABS: Band Neutrophils # (Manual) 0.1 K/mm3; Total Cells Counted 100
[2021-07-11 19:32] LABS: Hypochromasia 2+; Platelet Estimate Consistent w Auto; Tear Drop Cells 2+
[2021-07-11 21:06] LABS: Bilirubin,Urine NEG (Negative); Blood,Urine NEG (Negative); Color,Urine Yellow (Yellow); Urobilinogen,Urine < 2.0 mg/dL (<2.0)
[2021-07-11 21:07] LABS: Amphetamine Screen,Urine Negative; Benzodiazepines Screen,Urine Negative; Cannabinoid Screen,Urine Negative; Cocaine Screen,Urine Negative; Methadone Screen,Urine Negative; Opiate Screen,Urine Negative; WBC,Urine > 182.0 /HPF (0.0-6.0)
[2021-07-11] MEDS ORDERED: traZODone 50 MG TAB PO SCH (22:00)
[2021-07-11] MEDS ORDERED: oxyCODONE /ACETAMINOPHEN 5-325MG TAB PO ONE (23:16)
[2021-07-12] MEDS ORDERED: cephALEXin 500 MG CAP PO ONE (01:20)
[2021-07-12] MEDS: GABAPENTIN 400 MG CAP PO SCH ×2 (09:36→14:36)
[2021-07-12] MEDS: hydrOXYzine PAMOATE 25 MG CAP PO SCH (09:37)
--- NOTE | 2021-07-12 10:29 | Progress Note ---
Subjective - Reason for Consult Consult date: 07/12/21 Reason for consult: SI - Chief Complaint Chief complaint: The patient was seen this morning, she continues to be tearful. The patient states she has Covid and does not want to go home with it. She reports feeling bad. She presents with passive suicidal ideation but does not have a plan. The patient denies having homicidal ideation and denies having hallucinations. REVIEW OF SYSTEMS Constitutional: Negative for weight loss ENT: Negative for stridor Respiratory: Negative for cough or hemoptysis All other systems reviewed and are negative MENTAL STATUS EXAMINATION General Appearance: Dressed appropriately Behavior: anxious, depressed Mood: "depressed" Affect and affective range: sobbing Thought Process: goal directed Speech: normal rate and volume Thought Content: Suicidal Ideation: Yes Homicidal Ideation: Denies HI Hallucinations: Denies Delusions: none elicited Insight and Judgment: Limited Memory/Cognition: Limited Attention: Normal ASSESSMENT Bipolar Disorder, Current Episode Depressed Generalize Anxiety Disorder Treatment Plan [place] [address] 125mg po BID Vistaril 25mg po BID Trazodone 50mg po qhs Sitter: Defer to medical Medical: Per priamary Disposition: Do not recommend acute psychiatric inpatient treatment. The patient understands that if suicidal/homicidal ideation or any endangering thoughts /behavior arise, she should immediately seek for emergent assistance including but not limited to crisis hotline and emergency room. Follow up with o utpatient psychiatrist and PCP withing 7- 14 days of discharge. Will follow. Thanks Case staffed with Dr. Dawkins Medications and Allergies Mental Status Exam - Vital signs Last Vital Signs Temp 99.0 F 07/11/21 20:00 Pulse 94 H 07/11/21 20:00 Resp 20 07/12/21 00:21 BP 126/86 07/11/21 20:00 Pulse Ox 98 07/11/21 21:49
[2021-07-12 10:45] VITALS: BP 160/70
[2021-07-12] MEDS: DIVALPROEX DR 125 MG TAB PO SCH (10:53)
--- NOTE | 2021-07-12 16:20 | Event Note ---
Ms. Kay cleared for discharge by psychiatry team. She has minimal symptoms due to COVID 19 D[address] home
== END 2021-07-12 16:30 | disposition home or self-care (01) ==
LOC: ED 07:34
DX: U07.1 COVID-19 (principal); R45.851 Suicidal ideations; F31.9 Bipolar disorder, unspecified; Z88.8 Allergy status to other drugs, medicaments and biological substances
CPT/HCPCS: 36415; 71045; 74018; 80048; 80076; 80307; 81001; 83690; 84443; 85007; 85025; 96361; 96372; 96374; 99284; J2060; J2405; J7030; Q0177; U0003; 80320; G0480

== ENCOUNTER 2022-04-14 14:44 | Emergency (ER) | payer MEDICAID ==
--- NOTE | 2022-04-14 16:05 | Emergency Department Report ---
ED Psych HPI - General Chief Complaint: Psych Stated Complaint: ABDOMINAL PAIN/SUICIDAL Time Seen by Provider: 04/14/22 15:44 Source: patient, EMS Mode of arrival: Stretcher - History of Present Illness Initial Comments: Patient is 51 years old female with history of bipolar disorder. Patient presented to the ER initially complaining of chronic abdominal pain chronic back pain has been going on for a while. In triage patient informed the triage nurse that she is thinking about killing herself but she does not want to tell her family. Patient stated that she does not have a specific plan. She denied any visual or auditory hallucination. MD Complaint: suicidal ideation -: days(s) Associated Psychiatric Symptoms: depression, suicidal ideation Associated Symptoms: denies other symptoms If Self Harm: admits thoughts of - Related Data Home Medications Medication Instructions Recorded Confirmed Last Taken Gabapentin [Neurontin] 800 mg PO QID 04/23/18 07/11/21 06/27/20 1200 Gabapentin [Neurontin] 800 mg PO Q6H 05/04/20 06/27/20 2 Days Ago ~06/25/20 Oxycodone HCl/Acetaminophen 10 mg PO Q6HR PRN 05/04/20 06/27/20 2 Days Ago [Percocet 10/325 mg] ~06/25/20 oxyCODONE /ACETAMINOPHEN [Percocet 10 - 325 mg PO QID PRN 06/27/20 07/11/21 06/27/20 5/325 mg] 1300 traZODone [Desyrel] 100 mg PO QHS 06/27/20 06/27/20 2 Days Ago ~06/25/20 Carisoprodol [Soma] 350 mg PO DAILY 07/26/20 07/11/21 2 Weeks Ago ~07/12/20 350 mg traZODone 50 mg PO QHS 03/12/21 07/11/21 Unknown Previous Rx's Medication Instructions Recorded Last Taken Type Divalproex Dr [DepaKOTE DR] 125 mg PO BID 30 Days #60 tablet 07/12/21 Unknown Rx hydrOXYzine PAMOATE [Vistaril] 25 mg PO BID 30 Days #60 capsule 07/12/21 Unknown Rx traZODone [Desyrel] 50 mg PO QHS 30 Days #30 tab 07/12/21 Unknown Rx Allergies Allergy/AdvReac Type Severity Reaction Status Date / Time ibuprofen Allergy Itching Verified 01/21/22 02:54 ketorolac tromethamine Allergy Rash Verified 01/21/22 02:54 [From Toradol] ketorolac [From Toradol] AdvReac Itching Verified 01/21/22 02:54 tramadol AdvReac Itching Verified 01/21/22 02:54 ED Review of Systems ROS: Stated complaint: ABDOMINAL PAIN/SUICIDAL Other details as noted in HPI Comment: All other systems reviewed and negative Constitutional: denies: chills, fever Respiratory: denies: orthopnea, shortness of breath, SOB with exertion Cardiovascular: denies: chest pain, palpitations Gastrointestinal: abdominal pain, diarrhea. denies: nausea, vomiting, constipation, hematemesis, melena, hematochezia Musculoskeletal: denies: back pain Neurological: denies: headache, weakness, numbness, paresthesias, confusion Psychiatric: depression, suicidal thoughts. denies: auditory hallucinations, visual hallucinations, homicidal thoughts ED Past Medical Hx - Past Medical History Hx Congestive Heart Failure: No Hx Diabetes: No Hx Renal Disease: No Hx Arthritis: Yes (DJD) Hx Seizures: No Hx Psychiatric Treatment: Yes (depression; anxiety) Hx Asthma: No Hx COPD: No Hx Dementia: No Additional medical history: sciatica, anxiety, depression - Surgical History Past Surgical History?: Yes Hx Cholecystectomy: Yes Hx Appendectomy: No Additional Surgical History: L3-5 surgery, left wrist surgery. Hernia surgery - Social History Smoking Status: Never Smoker Substance Use Type: None - Medications Home Medications: Home Medications Medication Instructions Recorded Confirmed Last Taken Type Gabapentin [Neurontin] 800 mg PO QID 04/23/18 07/11/21 06/27/20 History 1200 Gabapentin [Neurontin] 800 mg PO Q6H 05/04/20 06/27/20 2 Days Ago History ~06/25/20 Oxycodone HCl/Acetaminophen 10 mg PO Q6HR PRN 05/04/20 06/27/20 2 Days Ago History [Percocet 10/325 mg] ~06/25/20 oxyCODONE /ACETAMINOPHEN [Percocet 10 - 325 mg PO QID PRN 06/27/20 07/11/21 06/27/20 History 5/325 mg] 1300 traZODone [Desyrel] 100 mg PO QHS 06/27/20 06/27/20 2 Days Ago History ~06/25/20 Carisoprodol [Soma] 350 mg PO DAILY 07/26/20 07/11/21 2 Weeks Ago History ~07/12/20 350 mg traZODone 50 mg PO QHS 03/12/21 07/11/[address] [DepaKOTE DR] 125 mg PO BID 30 Days #60 tablet 07/12/21 Unknown Rx hydrOXYzine PAMOATE [Vistaril] 25 mg PO BID 30 Days #60 capsule 07/12/21 Unknown Rx traZODone [Desyrel] 50 mg PO QHS 30 Days #30 tab 07/12/21 Unknown Rx ED Physical Exam - General Limitations: No Limitations General appearance: alert, in no apparent distress - Head Head exam: Present: atraumatic, normocephalic, normal inspection - Eye Eye exam: Present: normal appearance - ENT ENT exam: Present: normal exam, normal orophraynx, mucous membranes moist - Neck Neck exam: Present: normal inspection, full ROM. Absent: tenderness, meningismus - Respiratory Respiratory exam: Present: normal lung sounds bilaterally - Cardiovascular Cardiovascular Exam: Present: regular rate, normal rhythm, normal heart sounds - GI/Abdominal GI/Abdominal exam: Present: soft, normal bowel sounds. Absent: distended, tenderness, guarding, rebound, rigid, organomegaly, mass, bruit, pulsatile mass, hernia - Extremities Exam Extremities exam: Present: normal inspection, full ROM, normal capillary refill. Absent: tenderness - Back Exam Back exam: Present: normal inspection, full ROM. Absent: CVA tenderness (R), CVA tenderness (L) - Neurological Exam Neurological exam: Present: alert, oriented X3, CN II-XII intact, normal gait, reflexes normal. Absent: motor sensory deficit - Psychiatric Psychiatric exam: Present: flat affect, suicidal ideation. Absent: agitated, homicidal ideation - Skin Skin exam: Present: warm, dry, intact, normal color ED Course Vital Signs 04/14/22 04/14/22 04/14/22 15:11 19:38 20:17 Temperature 98.4 F 98.9 F Pulse Rate 82 74 Respiratory 20 16 Rate Blood Pressure 109/71 Blood Pressure 134/86 [Right] O2 Sat by Pulse 100 96 98 Oximetry 04/15/22 04/15/22 10:49 13:38 Temperature 97.6 F Pulse Rate 90 Respiratory 20 Rate Blood Pressure Blood Pressure 125/91 [Right] O2 Sat by Pulse 99 97 Oximetry ED Medical Decision Making - Lab Data Result diagrams: 04/14/22 16:05 04/14/22 16:05 Critical care attestation.: If time is entered above; I have spent that time in minutes in the direct care of this critically ill patient, excluding procedure time. ED Disposition Clinical Impression: Suicidal ideation, Abdominal pain Disposition: [address] [place] [address] Is pt being admited?: No Condition: Stable Referrals: PRIMARY CARE, [Primary Care Provider] - 3-5 Days
[2022-04-14 16:27] LABS: Hematocrit 33.8 % (30.3-42.9); Hemoglobin 10.6 gm/dl (10.1-14.3); Mean Corpuscular HGB Conc 32 % (30-34); Platelet Count 403 K/mm3 (140-440); Red Blood Count 4.91 M/mm3 (3.65-5.03); Red Cell Distribution Width 17.9 % (13.2-15.2)
[2022-04-14 16:32] LABS: Mean Corpuscular Volume 69 fl (79-97)
[2022-04-14 16:50] LABS: BUN/Creatinine Ratio 14; Blood Urea Nitrogen 11 mg/dL (7-17); Calcium 9.2 mg/dL (8.4-10.2); Hemolysis Index 15
[2022-04-14 19:03] LABS: Basophils % (Manual) 0 % (0.0-1.8); Hypochromasia 1+; Platelet Estimate Consistent w Auto; Target Cells Rare; Total Cells Counted 100
[2022-04-14] MEDS ORDERED: GABAPENTIN 100 MG CAP PO ONE (20:18)
[2022-04-14] MEDS ORDERED: ONDANSETRON 4 MG ODT TAB PO ONE (22:54)
[2022-04-14 23:07] LABS: RBC,Urine < 1.0 /HPF (0.0-6.0); WBC,Urine < 1.0 /HPF (0.0-6.0)
[2022-04-14 23:09] LABS: Amphetamine Screen,Urine PRESUMPTIVE NEGATIVE; Benzodiazepines Screen,Urine PRESUMPTIVE NEGATIVE; Cannabinoid Screen,Urine PRESUMPTIVE NEGATIVE; Cocaine Screen,Urine PRESUMPTIVE NEGATIVE; Methadone Screen,Urine PRESUMPTIVE NEGATIVE; Opiate Screen,Urine PRESUMPTIVE NEGATIVE
[2022-04-14 23:12] LABS: Bilirubin,Urine Negative (Negative); Blood,Urine NEG (Negative); Color,Urine Colorless (Yellow)
[2022-04-14 23:13] LABS: Protein,Urine <15 mg/dL mg/dL (Negative); Urobilinogen,Urine < 2.0 mg/dL (<2.0)
[2022-04-14] MEDS ORDERED: ACETAMINOPHEN 500 MG TAB PO ONE (23:28)
[2022-04-15] MEDS ORDERED: HALOPERIDOL LACTATE 5 MG/1 ML INJ IM ONE (00:02)
[2022-04-15] MEDS ORDERED: diphenhydrAMINE 50 MG/ML VIAL IV ONE (01:23)
[2022-04-15] MEDS ORDERED: LORazepam 2 MG/ML VIAL IM ONE (01:30)
--- NOTE | 2022-04-15 10:37 | Consultation ---
History of Present Illness - Reason for Consult Consult date: 04/15/22 Reason for consult: depression, SI - History of Present Psychiatric Illness HPI: Patient is 51 years old female with history of bipolar disorder. Patient presented to the ER initially complaining of chronic abdominal pain chronic back pain has been going on for a while. In triage patient informed the triage nurse that she is thinking about killing herself but she does not want to tell her family. Patient stated that she does not have a specific plan. She denied any visual or auditory hallucination. The patient was seen today. She is known to me from previous visits. The patient says she came to the hospital to see about her stomach. She says she is severely depressed and suicidal. She denies having a plan. She says she hears voices of her mom and dad telling her to kill herself. She says he gets lost in her own thoughts. Psychiatric History Diagnoses: Bipolar, depression, anxiety Suicide attempts or Self-harm behavior: Once Prior psychiatric hospitalizations: four times Substance Abuse history: Denies Previous psychiatric medications tried: no currently Outpatient treatment: not currently PAST MEDICAL HISTORY: None reported Family Psychiatric History: None reported or documented SOCIAL HISTORY Marital Status: Single Living Arrangements: alone with child Employment Status: Disabled Access to guns/weapons: Denies Education: 2 years of college History of Abuse: Denies Legal History: none reported REVIEW OF SYSTEMS Constitutional: Negative for weight loss ENT: Negative for stridor Respiratory: Negative for cough or hemoptysis All other systems reviewed and are negative MENTAL STATUS EXAMINATION General Appearance: Dressed appropriately Behavior: anxious, depressed Mood: "very depressed" Affect and affective range: congruent with stated mood Thought Process: goal directed Speech: normal rate and volume Thought Content: Suicidal Ideation: Yes Homicidal Ideation: Denies HI Hallucinations: Auditory Delusions: none elicited Insight and Judgment: Limited Memory/Cognition: Limited Attention: Normal ASSESSMENT Bipolar Disorder, Current Episode Depressed Treatment Plan [address] 125mg po BID Abilify 10mg po daily Trazodone 50mg po qhs Sitter: Defer to medical Medical: Per priamary Disposition: Recommend acute psychiatric inpatient treatment Will follow. Thanks Case staffed with Dr. Dawkins Medications and Allergies Allergies Allergy/AdvReac Type Severity Reaction Status Date / Time ibuprofen Allergy Itching Verified 01/21/22 02:54 ketorolac tromethamine Allergy Rash Verified 01/21/22 02:54 [From Toradol] ketorolac [From Toradol] AdvReac Itching Verified 01/21/22 02:54 tramadol AdvReac Itching Verified 01/21/22 02:54 Home Medications Medication Instructions Recorded Confirmed Last Taken Type Gabapentin [Neurontin] 800 mg PO QID 04/23/18 07/11/21 06/27/20 History 1200 Gabapentin [Neurontin] 800 mg PO Q6H 05/04/20 06/27/20 2 Days Ago History ~06/25/20 Oxycodone HCl/Acetaminophen 10 mg PO Q6HR PRN 05/04/20 06/27/20 2 Days Ago History [Percocet 10/325 mg] ~06/25/20 oxyCODONE /ACETAMINOPHEN [Percocet 10 - 325 mg PO QID PRN 06/27/20 07/11/21 06/27/20 History 5/325 mg] 1300 traZODone [Desyrel] 100 mg PO QHS 06/27/20 06/27/20 2 Days Ago History ~06/25/20 Carisoprodol [Soma] 350 mg PO DAILY 07/26/20 07/11/21 2 Weeks Ago History ~07/12/20 350 mg traZODone 50 mg PO QHS 03/12/21 07/11/21 Unknown History Divalproex [Anthony MORROW] 125 mg PO BID 30 Days #60 tablet 07/12/21 Unknown Rx hydrOXYzine PAMOATE [Vistaril] 25 mg PO BID 30 Days #60 capsule 07/12/21 Unknown Rx traZODone [Desyrel] 50 mg PO QHS 30 Days #30 tab 07/12/21 Unknown Rx Mental Status Exam - Vital signs Last Vital Signs Temp 98.9 F 04/14/22 20:17 Pulse 74 04/14/22 20:17 Resp 16 04/14/22 20:17 BP 134/86 04/14/22 20:17 Pulse Ox 98 04/14/22 20:17 Results Result Diagrams: 04/14/22 16:05 04/14/22 16:05 Abnormal lab results 04/14/22 04/14/22 04/14/22 Range/Units 16:05 16:05 16:05 MCV 69 L (79-97) fl MCH 22 L (28-32) pg RDW 17.9 H (13.2-15.2) % Lymphocytes % (Manual) 42.0 H (13.4-35.0) % Glucose 132 H (65-100) mg/dL Salicylates < 0.3 L (2.8-20.0) mg/dL Acetaminophen (10.0-30.0) ug/mL 04/14/22 Range/Units 16:05 MCV (79-97) fl MCH (28-32) pg RDW (13.2-15.2) % Lymphocytes % (Manual) (13.4-35.0) % Glucose (65-100) mg/dL Salicylates (2.8-20.0) mg/dL Acetaminophen 5.0 L (10.0-30.0) ug/mL All other labs normal.
[2022-04-15] MEDS ORDERED: ARIPiprazole 10 MG TAB PO SCH (11:00)
[2022-04-15] MEDS ORDERED: DIVALPROEX DR 125 MG TAB PO SCH (11:00)
[2022-04-15 13:39] VITALS: BP 125/91
--- NOTE | 2022-04-15 13:57 | Emergency Department Report ---
Blank Doc - Documentation Documentation: S: No events reported overnight O: Vital Signs - 8 hr 04/15/22 04/15/22 10:49 13:38 Temperature 97.6 F Pulse Rate 90 Respiratory 20 Rate Blood Pressure 125/91 [Right] O2 Sat by Pulse 99 97 Oximetry A: Bipolar disorder P: 1013/awaiting patient side
[2022-04-15] MEDS ORDERED: CYCLOBENZAPRINE 10 MG TAB PO ONE (14:17)
[2022-04-15] MEDS ORDERED: traZODone 50 MG TAB PO SCH (22:00)
== END 2022-04-15 13:59 ==
LOC: EEVIPCON 14:44 → ED 14:44
DX: R45.851 Suicidal ideations (principal); M54.9 Dorsalgia, unspecified; R10.9 Unspecified abdominal pain; Z88.6 Allergy status to analgesic agent; Z20.822 Contact with and (suspected) exposure to COVID-19
CPT/HCPCS: 36415; 80048; 80307; 81001; 85007; 85025; 96372; 96374; 99285; J1200; J1630; J2060; U0003; 80320; J3490; G0480; Q0162

== ENCOUNTER 2022-04-15 11:31 | Inpatient (IN) | payer MEDICARE ==
[2022-04-15] MEDS ORDERED: NON-FORMULARY EACH (Gabapentin [Neurontin] 600 MG Tablet) PO SCH (18:00)
[2022-04-15] MEDS ORDERED: LOPERAMIDE 2 MG CAP PO ONE (19:30)
--- NOTE | 2022-04-15 20:30 | Consultation ---
History of Present Illness - Reason for Consult Consult date: 04/15/22 Medical management Requesting physician: DIMA MONSALVE - History of Present Illness 51 YO Female with Bipolar Disorder, Chronic Pain, DJD admitted to [facility] for Psychiatric stabilization. Consult placed by Dr. Monsalve for medical management. Patient seen and evaluated in the recreation room. Patient resting calmly. Patient denies fever, chills, chest pain, palpitation, productive c ough, skin rash, recent contact, known exposure to COVID-19. No reported nursing events. Patient resting calmly. Past History Past Medical History: other (See HPI) Past Surgical History: No surgical history Social history: single. denies: smoking, alcohol abuse, prescription drug abuse Family history: hypertension Medications and Allergies Allergies Allergy/AdvReac Type Severity Reaction Status Date / Time ibuprofen Allergy Itching Verified 01/21/22 02:54 ketorolac tromethamine Allergy Rash Verified 01/21/22 02:54 [From Toradol] ketorolac [From Toradol] AdvReac Itching Verified 01/21/22 02:54 tramadol AdvReac Itching Verified 01/21/22 02:54 Home Medications Medication Instructions Recorded Confirmed Last Taken Type Gabapentin [Neurontin] 800 mg PO QID 04/23/18 04/15/22 06/27/20 History 1200 Gabapentin [Neurontin] 800 mg PO Q6H 05/04/20 04/15/22 2 Days Ago History ~06/25/20 Oxycodone HCl/Acetaminophen 10 mg PO Q6HR PRN 05/04/20 04/15/22 2 Days Ago H istory [Percocet 10/325 mg] ~06/25/20 oxyCODONE /ACETAMINOPHEN [Percocet 10 - 325 mg PO QID PRN 06/27/20 04/15/22 06/27/20 History 5/325 mg] 1300 traZODone [Desyrel] 100 mg PO QHS 06/27/20 04/15/22 2 Days Ago History ~06/25/20 Carisoprodol [Soma] 350 mg PO DAILY 07/26/20 04/15/22 2 Weeks Ago History ~07/12/20 350 mg Divalproex [Anthony MORROW] 125 mg PO BID 30 Days #60 tablet 07/12/21 04/15/22 Unknown Rx hydrOXYzine PAMOATE [Vistaril] 25 mg PO BID 30 Days #60 capsule 07/12/21 04/15/22 Unknown Rx traZODone [Desyrel] 50 mg PO QHS 30 Days #30 tab 07/12/21 04/15/22 Unknown Rx Active Meds: Active Medications Acetaminophen (Acetaminophen 325 Mg Tab) 650 mg PO Q4H PRN PRN Reason: Pain, Mild (1-3) Aripiprazole (Aripiprazole 10 Mg Tab) 10 mg PO QDAY HELEN Divalproex Sodium (Divalproex Dr 125 Mg Tab) 125 mg PO BID HELEN Gabapentin (Gabapentin 400 Mg Cap) 800 mg PO QID HELEN Trazodone HCl (Trazodone 50 Mg Tab) 50 mg PO QHS [facility] Review of Systems Constitutional: no weight loss, no weight gain Ears, nose, mouth and throat: no ear pain, no tinnitis, no decreased hearing, no nasal congestion, no sinus pressure Breasts: no change in shape, no swelling Cardiovascular: no palpitations, no rapid/irregular heart beat, no syncope Respiratory: no cough, no excessive sputum Gastrointestinal: no nausea, no diarrhea, no constipation, no hematemesis Genitourinary Female: no pelvic pain, no flank pain, no dysuria, no urgency Rectal: no pain, no incontinence, no bleeding Musculoskeletal: no neck pain, no arm numbness/tingling, no shooting leg pain, no leg numbness/tingling Integumentary: no rash, no redness, no sores, no wounds, no boils Neurological: no head injury, no paralysis, no weakness, no numbness, no syncope Psychiatric: anxiety, mood swings, no memory loss Endocrine: no cold intolerance, no excessive thirst, no polydipsia, no polyuria, no nocturia Hematologic/Lymphatic: no easy bruising, no easy bleeding, no lymphedema Allergic/Immunologic: no allergic rhinitis, no wheezing, no anaphylaxis Exam - Constitutional Vitals: Temp Pulse Resp BP Pulse Ox 74 16 130/98 98 04/15/22 16:22 04/15/22 16:22 04/15/22 16:22 04/15/22 16:22 General appearance: Present: no acute distress, well-nourished - EENT Eyes: Present: PERRL ENT: hearing intact, clear oral mucosa - Neck Neck: Present: supple, normal ROM - Respiratory Respiratory effort: normal Respiratory: bilateral: CTA - Cardiovascular Heart Sounds: Present: S1 & S2. Absent: rub, click - Extremities Extremities: pulses symmetrical, No edema Peripheral Pulses: within normal limits - Abdominal General gastrointestinal: Present: soft, non-tender, non-distended, normal bowel sounds Female genitourinary: Present: normal - Integumentary Integumentary: Present: clear, warm, dry - Musculoskeletal Musculoskeletal: gait normal, strength equal bilaterally - Psychiatric Psychiatric: appropriate mood/affect, intact judgment & insight - Neurologic Neurologic: CNII-XII intact, moves all extremities Results - Labs Labs: Abnormal lab results 04/15/22 Range/Units 16:53 POC Glucose 106 H (70-105) mg/dL Assessment and Plan - Patient Problems (1) Bipolar 1 disorder, depressed Current Visit: No Status: Chronic Plan to address problem: Continue medical management, supportive care. (2) Degenerative joint disease Current Visit: Yes Status: Acute Plan to address problem: Pain control, supportive care, continue medical management. (3) Chronic pain Current Visit: No Status: Acute Qualifiers: Chronic pain type: chronic pain syndrome Qualified Code(s): G89.4 - Chronic pain syndrome Plan to address problem: Continue medical management, supportive care, pain control. (4) Advance care planning Current Visit: Yes Status: Acute Plan to address problem: Disease education done, care plan discussed, diagnoses discussed, prognosis discussed, patient is full code. Patient knowledges understanding and agreement with care plan, +30 minutes. (5) Preventative health care Current Visit: Yes Status: Acute Plan to address problem: Patient counseled regarding outpatient follow-up with primary care physician for all age and risk factor appropriate screening test, balanced diet, +30 minutes.
[2022-04-15] MEDS: ACETAMINOPHEN 325 MG TAB PO PRN (21:17)
[2022-04-15] MEDS: GABAPENTIN 400 MG CAP PO SCH (21:18)
[2022-04-15] MEDS: DIVALPROEX DR 125 MG TAB PO SCH (21:18)
[2022-04-15] MEDS: traZODone 50 MG TAB PO SCH (21:18)
[2022-04-16 06:11] LABS: Alanine Aminotransferase 8 units/L (7-56); Albumin 3.7 g/dL (3.9-5); Blood Urea Nitrogen 10 mg/dL (7-17); Calcium 9.2 mg/dL (8.4-10.2); Chol/HDL Ratio 3.95 %; HDL Cholesterol 48 mg/dL (40-59); Hemolysis Index 3; LDL Cholesterol,Direct 124 mg/dL (50-130)
[2022-04-16 06:14] LABS: BUN/Creatinine Ratio 14
[2022-04-16] MEDS: ACETAMINOPHEN 325 MG TAB PO PRN ×3 (06:16→21:17)
[2022-04-16 06:18] LABS: Hematocrit 34.2 % (30.3-42.9); Hemoglobin 10.4 gm/dl (10.1-14.3); Mean Corpuscular HGB Conc 31 % (30-34); Platelet Count 386 K/mm3 (140-440); Red Blood Count 4.92 M/mm3 (3.65-5.03); Red Cell Distribution Width 18.3 % (13.2-15.2)
[2022-04-16 06:46] LABS: Mean Corpuscular Volume 70 fl (79-97)
[2022-04-16 09:49] LABS: Basophils % (Manual) 0 % (0.0-1.8); Total Cells Counted 100
[2022-04-16 09:54] LABS: Anisocytosis 1+; Hypochromasia 2+; Ovalocytes Few; Poikilocytosis 1+
[2022-04-16 09:55] LABS: Large Platelets Rare; Platelet Estimate Consistent w Auto; Spherocytes Rare; Target Cells Rare; Tear Drop Cells Rare
[2022-04-16] MEDS ORDERED: ARIPiprazole 10 MG TAB PO SCH (10:00)
[2022-04-16] MEDS: GABAPENTIN 400 MG CAP PO SCH ×4 (10:48→21:17)
[2022-04-16] MEDS: DIVALPROEX DR 125 MG TAB PO SCH (10:48)
[2022-04-16] MEDS ORDERED: NON-FORMULARY EACH (Oxycodone Hcl/Acetaminophen [Percocet 10/325 Mg] 1 EACH Tablet) PO PRN (13:03)
[2022-04-16] MEDS: oxyCODONE 5 MG TAB PO PRN ×2 (13:48→21:18)
--- NOTE | 2022-04-16 14:51 | History and Physical Report ---
GP History & Physical - History of Present Illness Date of admission: 04/15/22 Date of Examination: 04/16/22 Reason for Admission: Danger to self History of Present Illness: The patient was seen today. I first started treating this patient in the ER. Yesterday, the patient says she came to the hospital to see about her stomach. She says she is severely depressed and suicidal. She denies having a plan. She says she hears voices of her mom and dad telling her to kill herself. She says he gets lost in her own thoughts. Today when speaking to the patient she still endorses SI without a plan. She says she is severely depressed. The patient says hearing "voices that are my own thoughts." She says she no longer takes depakote and abilify. Psychiatric History Diagnoses: Bipolar, depression, anxiety Suicide attempts or Self-harm behavior: Once Prior psychiatric hospitalizations: four times Substance Abuse history: Denies Previous psychiatric medications tried: no currently Outpatient treatment: not currently PAST MEDICAL HISTORY: None reported Family Psychiatric History: None reported or documented SOCIAL HISTORY Marital Status: Single Living Arrangements: alone with child Employment Status: Disabled Access to guns/weapons: Denies Education: 2 years of college History of Abuse: Denies Legal History: none reported REVIEW OF SYSTEMS Constitutional: Negative for weight loss ENT: Negative for stridor Respiratory: Negative for cough or hemoptysis All other systems reviewed and are negative MENTAL STATUS EXAMINATION General Appearance: Dressed appropriately Behavior: anxious, depressed Mood: "very depressed" Affect and affective range: congruent with stated mood Thought Process: goal directed Speech: normal rate and volume Thought Content: Suicidal Ideation: Yes Homicidal Ideation: Denies HI Hallucinations: Auditory Delusions: none elicited Insight and Judgment: Limited Memory/Cognition: Limited Attention: Normal ASSESSMENT Bipolar Disorder, Current Episode Depressed Treatment Plan: Patient admitted for inpatient psychiatric evaluation, medication adjustment and close monitoring The patient's behavior, mood, sleep and appetite will be closely monitored. Patient enrolled in individual and group therapeutic sessions and encouraged to attend. Patient provided with a safe and structured environment. Patient's physical health needs will be addressed by the Hospitalist. Hospitalist Consulted Labs including CBC, CMP, Lipid profile and Hemoglobin A1C levels ordered for baseline reference Social Assessment will be completed and the [facility] will work with patient and family to ensure a suitable and safe disposition Medication adjustment will be made as clinically indicated d/c depakote and abilify Start Prozac 20mg po daily Start Olanzapine 7.5mg po daily [facility] [employer]: - Start Trazodone 50 mg po QHS & 50 mg po QHS PRN between 10 PM & 2 AM for insomnia - Start Melatonin 5 mg po QHS to promote circadian rhythm The patient agreed on the treatment plan, understood the risk, benefit, alternative treatment, potential consequence of no treatment, and gave informed consent. Estimated days: [address] Dawkins Legal Status: Voluntary Patient Problems: Current Active Problems Advance care planning (Acute) Degenerative joint disease (Acute) Preventative health care (Acute) Reaction to Hospitalization: Accepting Medications and Allergies Allergies Allergy/AdvReac Type Severity Reaction Status Date / Time ibuprofen Allergy Itching Verified 01/21/22 02:54 ketorolac tromethamine Allergy Rash Verified 01/21/22 02:54 [From Toradol] ketorolac [From Toradol] AdvReac Itching Verified 01/21/22 02:54 tramadol AdvReac Itching Verified 01/21/22 02:54 Home Medications Medication Instructions Recorded Confirmed Last Taken Type Gabapentin [Neurontin] 800 mg PO QID 04/23/18 04/15/22 06/27/20 History 1200 Gabapentin [Neurontin] 800 mg PO Q6H 05/04/20 04/15/22 2 Days Ago History ~06/25/20 Oxycodone HCl/Acetaminophen 10 mg PO Q6HR PRN 05/04/20 04/15/22 2 Days Ago History [Percocet 10/325 mg] ~06/25/20 oxyCODONE /ACETAMINOPHEN [Percocet 10 - 325 mg PO QID PRN 06/27/20 04/15/22 06/27/20 History 5/325 mg] 1300 traZODone [Desyrel] 100 mg PO QHS 06/27/20 04/15/22 2 Days Ago History ~06/25/20 Carisoprodol [Soma] 350 mg PO DAILY 07/26/20 04/15/22 2 Weeks Ago History ~07/12/[address] [DepaKOTE DR] 125 mg PO BID 30 Days #60 tablet 07/12/21 04/15/22 Unknown Rx hydrOXYzine PAMOATE [Vistaril] 25 mg PO BID 30 Days #60 capsule 07/12/21 04/15/22 Unknown Rx traZODone [Desyrel] 50 mg PO QHS 30 Days #30 tab 07/12/21 04/15/22 Unknown Rx Active Meds: Active Medications Acetaminophen (Acetaminophen 325 Mg Tab) 650 mg PO Q4H PRN PRN Reason: Pain, Mild (1-3) Last Admin: 04/16/22 13:47 Dose: 650 mg Acetaminophen (Acetaminophen 325 Mg Tab) 325 mg PO Q8HR PRN PRN Reason: Pain , Severe (7-10) Aripiprazole (Aripiprazole 10 Mg Tab) 10 mg PO QDAY [facility] Last Admin: 04/16/22 10:48 Dose: 10 mg Carisoprodol (Carisoprodol 350 Mg Tab) 350 mg PO DAILY [facility] Divalproex Sodium (Divalproex Dr 125 Mg Tab) 125 mg PO BID [facility] Last Admin: 04/16/22 10:48 Dose: 125 mg Gabapentin (Gabapentin 400 Mg Cap) 800 mg PO QID [facility] Last Admin: 04/16/22 14:07 Dose: 800 mg Oxycodone HCl (Oxycodone 5 Mg Tab) 10 mg PO Q8HR PRN PRN Reason: Pain , Severe (7-10) Last Admin: 04/16/22 13:48 Dose: 10 mg Trazodone HCl (Trazodone 50 Mg Tab) 50 mg PO QHS [facility] Last Admin: 04/15/22 21:18 Dose: 50 mg Results - Results Labs/Vitals: Laboratory Last Values WBC 6.4 K/mm3 (4.5-11.0) 04/16/22 05:30 RBC 4.92 M/mm3 (3.65-5.03) 04/16/22 05:30 Hgb 10.4 gm/dl (10.1-14.3) 04/16/22 05:30 Hct 34.2 % (30.3-42.9) 04/16/22 05:30 MCV 70 fl (79-97) L 04/16/22 05:30 MCH 21 pg (28-32) L 04/16/22 05:30 MCHC 31 % (30-34) 04/16/22 05:30 RDW 18.3 % (13.2-15.2) H 04/16/22 05:30 Plt Count 386 K/mm3 (140-440) 04/16/22 05:30 Add Manual Diff Complete 04/16/22 05:30 Total Counted 100 04/16/22 05:30 Seg Neuts % (Manual) 61.0 % (40.0-70.0) 04/16/22 05:30 Band Neutrophils % 0 % 04/16/22 05:30 Lymphocytes % (Manual) 32.0 % (13.4-35.0) 04/16/22 05:30 Reactive Lymphs % (Man) 1.0 % 04/16/22 05:30 Monocytes % (Manual) 1.0 % (0.0-7.3) 04/16/22 05:30 Eosinophils % (Manual) 5.0 % (0.0-4.3) H 04/16/22 05:30 Basophils % (Manual) 0 % (0.0-1.8) 04/16/22 05:30 Metamyelocytes % 0 % 04/16/22 05:30 Myelocytes % 0 % 04/16/22 05:30 Promyelocytes % 0 % 04/16/22 05:30 Blast Cells % 0 % 04/16/22 05:30 Nucleated RBC % Not Reportable 04/16/22 05:30 Seg Neutrophils # Man 3.9 K/mm3 (1.8-7.7) 04/16/22 05:30 Band Neutrophils # 0.0 K/mm3 04/16/22 05:30 Lymphocytes # (Manual) 2.0 K/mm3 (1.2-5.4) 04/16/22 05:30 Abs React Lymphs (Man) 0.1 K/mm3 04/16/22 05:30 Monocytes # (Manual) 0.1 K/mm3 (0.0-0.8) 04/16/22 05:30 Eosinophils # (Manual) 0.3 K/mm3 (0.0-0.4) 04/16/22 05:30 Basophils # (Manual) 0.0 K/mm3 (0.0-0.1) 04/16/22 05:30 Metamyelocytes # 0.0 K/mm3 04/16/22 05:30 Myelocytes # 0.0 K/mm3 04/16/22 05:30 Promyelocytes # 0.0 K/mm3 04/16/22 05:30 Blast Cells # 0.0 K/mm3 04/16/22 05:30 WBC Morphology Not Reportable 04/16/22 05:30 Hypersegmented Neuts Not Reportable 04/16/22 05:30 Hyposegmented Neuts Not Reportable 04/16/22 05:30 Hypogranular Neuts Not Reportable 04/16/22 05:30 Smudge Cells Not Reportable 04/16/22 05:30 Toxic Granulation Not Reportable 04/16/22 05:30 Toxic Vacuolation Not Reportable 04/16/22 05:30 Dohle Bodies Not Reportable 04/16/22 05:30 Pelger-Huet Anomaly Not Reportable 04/16/22 05:30 Gage Rods Not Reportable 04/16/22 05:30 Platelet Estimate Consistent w auto 04/16/22 05:30 Clumped Platelets Not Reportable 04/16/22 05:30 Plt Clumps, EDTA Not Reportable 04/16/22 05:30 Large Platelets Rare 04/16/22 05:30 Giant Platelets Not Reportable 04/16/22 05:30 Platelet Satelliting Not Reportable 04/16/22 05:30 Plt Morphology Comment Not Reportable 04/16/22 05:30 RBC Morphology Not Reportable 04/16/22 05:30 Dimorphic RBCs Not Reportable 04/16/22 05:30 Polychromasia Not Reportable 04/16/22 05:30 Hypochromasia 2+ 04/16/22 05:30 Poikilocytosis 1+ 04/16/22 05:30 Anisocytosis 1+ 04/16/22 05:30 Microcytosis 1+ 04/16/22 05:30 Macrocytosis Not Reportable 04/16/22 05:30 Spherocytes Rare 04/16/22 05:30 Pappenheimer Bodies Not Reportable 04/16/22 05:30 Sickle Cells Not Reportable 04/16/22 05:30 Target Cells Rare 04/16/22 05:30 Tear Drop Cells Rare 04/16/22 05:30 Ovalocytes Few 04/16/22 05:30 Helmet Cells Not Reportable 04/16/22 05:30 [place] Bodies Not Reportable 04/16/22 05:30 [place] Rings Not Reportable 04/16/22 05:30 [place]oni Cells Not Reportable 04/16/22 05:30 Bite Cells Not Reportable 04/16/22 05:30 Crenated Cell Not Reportable 04/16/22 05:30 Elliptocytes Rare 04/16/22 05:30 Acanthocytes (Spur) Not Reportable 04/16/22 05:30 Rouleaux Not Reportable 04/16/22 05:30 Hemoglobin C Crystals Not Reportable 04/16/22 05:30 Schistocytes Not Reportable 04/16/22 05:30 Malaria parasites Not Reportable 04/16/22 05:30 Faustino Bodies Not Reportable 04/16/22 05:30 Hem Pathologist Commnt No 04/16/22 05:30 Sodium 141 mmol/L (137-145) 04/16/22 05:30 Potassium 4.3 mmol/L (3.6-5.0) 04/16/22 05:30 Chloride 105.1 mmol/L (98-107) 04/16/22 05:30 Carbon Dioxide 23 mmol/L (22-30) 04/16/22 05:30 Anion Gap 17 mmol/L 04/16/22 05:30 BUN 10 mg/dL (7-17) 04/16/22 05:30 Creatinine 0.7 mg/dL (0.6-1.2) 04/16/22 05:30 Estimated GFR > 60 ml/min 04/16/22 05:30 BUN/Creatinine Ratio 14 % 04/16/22 05:30 Glucose 146 mg/dL (65-100) H 04/16/22 05:30 POC Glucose 106 mg/dL (70-105) H 04/15/22 16:53 Hemoglobin A1c 8.5 % (4-6) H 04/16/22 05:30 Calcium 9.2 mg/dL (8.4-10.2) 04/16/22 05:30 Total Bilirubin 0.20 mg/dL (0.1-1.2) 04/16/22 05:30 AST 14 units/L (5-40) 04/16/22 05:30 ALT 8 units/L (7-56) 04/16/22 05:30 Alkaline Phosphatase 125 units/L (35-129) 04/16/22 05:30 Total Protein 7.2 g/dL (6.3-8.2) 04/16/22 05:30 Albumin 3.7 g/dL (3.9-5) L 04/16/22 05:30 Albumin/Globulin Ratio 1.1 % 04/16/22 05:30 Triglycerides 102 mg/dL (2-149) 04/16/22 05:30 Cholesterol 190 mg/dL (50-199) 04/16/22 05:30 LDL Cholesterol Direct 124 mg/dL (50-130) 04/16/22 05:30 HDL Cholesterol 48 mg/dL (40-59) 04/16/22 05:30 Cholesterol/HDL Ratio 3.95 % 04/16/22 05:30 TSH 0.363 mlU/mL (0.270-4.200) 04/16/22 05:30 Last Vital Signs Temp 98.8 F 04/15/22 22:00 Pulse 99 H 04/15/22 22:00 Resp 16 04/15/22 22:00 BP 117/92 04/15/22 22:00 Pulse Ox 97 04/15/22 22:00 Physical Examination - Constitutional Vitals: Vital Signs Temp Pulse Resp BP Pulse Ox 98.8 F 99 H 16 117/92 97 04/15/22 22:00 04/15/22 22:00 04/15/22 22:00 04/15/22 22:00 04/15/22 22:00 Temperature -Last 24 Hours Temperature 98.8 F Temperature 98.8 F Temperature 98.8 F Mental Status Exam - Vital signs Last Vital Signs Temp 98.8 F 04/15/22 22:00 Pulse 99 H 04/15/22 22:00 Resp 04/15/22 22:00 BP 117/92 04/15/22 22:00 Pulse Ox 97 04/15/22 22:00 Physician Certification - Certification Statement Physician Certification Statement: This is an acknowledgement statement that JUSTINO JIMENEZ is a 51 year old F who requires inpatient psychiatric admission for treatment which could reasonably be expected to improve the patient's condition for Estimated period of time patient will need to remain in the hospital: [ ] Plan for post-hospital care: [ ]
[2022-04-16] MEDS: FLUoxetine 20 MG CAP PO SCH (16:19)
[2022-04-16 16:22] LABS: Bilirubin,Urine NEG (Negative); Blood,Urine NEG (Negative); Color,Urine Straw (Yellow); Protein,Urine <15 mg/dL mg/dL (Negative); RBC,Urine < 1.0 /HPF (0.0-6.0); Urobilinogen,Urine < 2.0 mg/dL (<2.0)
[2022-04-16] MEDS: traZODone 50 MG TAB PO SCH (21:17)
[2022-04-17] MEDS: oxyCODONE 5 MG TAB PO PRN ×3 (05:28→21:21)
[2022-04-17] MEDS: ACETAMINOPHEN 325 MG TAB PO PRN ×3 (05:29→21:21)
[2022-04-17] MEDS: GABAPENTIN 400 MG CAP PO SCH ×4 (09:00→21:20)
[2022-04-17] MEDS: CARISOPRODOL 350 MG TAB PO SCH (09:00)
[2022-04-17] MEDS: FLUoxetine 20 MG CAP PO SCH (09:00)
--- NOTE | 2022-04-17 09:28 | Progress Note ---
Subjective Date of service: 04/17/22 Principal diagnosis: SI/Depression Subjective Comment: The patient was seen today. She says she did not sleep well and states she was taking ambien. The patient is also asking if she could have her percocet in one pill instead of three times a day. She says the medication she's on has her mood all over the place. The patient still endorses SI without a plan. She also says she hears voices of her parents and sees them. REVIEW OF SYSTEMS Constitutional: Negative for weight loss ENT: Negative for stridor Respiratory: Negative for cough or hemoptysis All other systems reviewed and are negative MENTAL STATUS EXAMINATION General Appearance: Dressed appropriately Behavior: anxious, depressed Mood: "very depressed" Affect and affective range: congruent with stated mood Thought Process: goal directed Speech: normal rate and volume Thought Content: Suicidal Ideation: Yes Homicidal Ideation: Denies HI Hallucinations: Auditory Delusions: none elicited Insight and Judgment: Limited Memory/Cognition: Limited Attention: Normal ASSESSMENT Bipolar Disorder, Current Episode Depressed Treatment Plan: Patient admitted for inpatient psychiatric evaluation, medication adjustment and close monitoring The patient's behavior, mood, sleep and appetite will be closely monitored. Patient enrolled in individual and group therapeutic sessions and encouraged to attend. Patient provided with a safe and structured environment. Patient's physical health needs will be addressed by the Hospitalist. Hospitalist Consulted Labs including CBC, CMP, Lipid profile and Hemoglobin A1C levels ordered for baseline reference Social Assessment will be completed and the [employer] will work with patient and family to ensure a suitable and safe disposition Medication adjustment will be made as clinically indicated Increase Olanzapine 10mg po daily Increase Trazodone 100mg po qhs [facility]: - Start Trazodone 50 mg po QHS & 50 mg po QHS PRN between 10 PM & 2 AM for insomnia - Start Melatonin 5 mg po QHS to promote circadian rhythm The patient agreed on the treatment plan, understood the risk, benefit, alternative treatment, potential consequence of no treatment, and gave informed consent. Estimated days: [address] Dawkins Medications and Allergies Allergies Allergy/AdvReac Type Severity Reaction Status Date / Time ibuprofen Allergy Itching Verified 01/21/22 02:54 ketorolac tromethamine Allergy Rash Verified 01/21/22 02:54 [From Toradol] ketorolac [From Toradol] AdvReac Itching Verified 01/21/22 02:54 tramadol AdvReac Itching Verified 01/21/22 02:54 Home Medications Medication Instructions Recorded Confirmed Last Taken Type Gabapentin [Neurontin] 800 mg PO QID 04/23/18 04/15/22 06/27/20 History 1200 Gabapentin [Neurontin] 800 mg PO Q6H 05/04/20 04/15/22 2 Days Ago History ~06/25/20 Oxycodone HCl/Acetaminophen 10 mg PO Q6HR PRN 05/04/20 04/15/22 2 Days Ago History [Percocet 10/325 mg] ~06/25/20 oxyCODONE /ACETAMINOPHEN [Percocet 10 - 325 mg PO QID PRN 06/27/20 04/15/22 06/27/20 History 5/325 mg] 1300 traZODone [Desyrel] 100 mg PO QHS 06/27/20 04/15/22 2 Days Ago History ~06/25/20 Carisoprodol [Soma] 350 mg PO DAILY 07/26/20 04/15/22 2 Weeks Ago History ~07/12/[address] [DepaKOTE DR] 125 mg PO BID 30 Days #60 tablet 07/12/21 04/15/22 Unknown Rx hydrOXYzine PAMOATE [Vistaril] 25 mg PO BID 30 Days #60 capsule 07/12/21 04/15/22 Unknown Rx traZODone [Desyrel] 50 mg PO QHS 30 Days #30 tab 07/12/21 04/15/22 Unknown Rx Active Meds: Active Medications Acetaminophen (Acetaminophen 325 Mg Tab) 650 mg PO Q4H PRN PRN Reason: Pain, Mild (1-3) Last Admin: 04/16/22 13:47 Dose: 650 mg Acetaminophen (Acetaminophen 325 Mg Tab) 325 mg PO Q8HR PRN PRN Reason: Pain , Severe (7-10) Last Admin: 04/17/22 05:29 Dose: 325 mg Carisoprodol (Carisoprodol 350 Mg Tab) 350 mg PO DAILY [facility] Last Admin: 04/17/22 09:00 Dose: 350 mg Fluoxetine HCl (Fluoxetine 20 Mg Cap) 20 mg PO QDAY [facility] Last Admin: 04/17/22 09:00 Dose: 20 mg Gabapentin (Gabapentin 400 Mg Cap) 800 mg PO QID [facility] Last Admin: 04/17/22 09:00 Dose: 800 mg Olanzapine (Olanzapine 7.5 Mg Tab) 7.5 mg PO QDAY [facility] Last Admin: 04/17/22 09:00 Dose: 7.5 mg Oxycodone HCl (Oxycodone 5 Mg Tab) 10 mg PO Q8HR PRN PRN Reason: Pain , Severe (7-10) Last Admin: 04/17/22 05:28 Dose: 10 mg Trazodone HCl (Trazodone 50 Mg Tab) 50 mg PO QHS [facility] Last Admin: 04/16/22 21:17 Dose: 50 mg Results - Results Labs/Vitals: Laboratory Last Values WBC 6.4 K/mm3 (4.5-11.0) 04/16/22 05:30 RBC 4.92 M/mm3 (3.65-5.03) 04/16/22 05:30 Hgb 10.4 gm/dl (10.1-14.3) 04/16/22 05:30 Hct 34.2 % (30.3-42.9) 04/16/22 05:30 MCV 70 fl (79-97) L 04/16/22 05:30 MCH 21 pg (28-32) L 04/16/22 05:30 MCHC 31 % (30-34) 04/16/22 05:30 RDW 18.3 % (13.2-15.2) H 04/16/22 05:30 Plt Count 386 K/mm3 (140-440) 04/16/22 05:30 Add Manual Diff Complete 04/16/22 05:30 Total Counted 100 04/16/22 05:30 Seg Neuts % (Manual) 61.0 % (40.0-70.0) 04/16/22 05:30 Band Neutrophils % 0 % 04/16/22 05:30 Lymphocytes % (Manual) 32.0 % (13.4-35.0) 04/16/22 05:30 Reactive Lymphs % (Man) 1.0 % 04/16/22 05:30 Monocytes % (Manual) 1.0 % (0.0-7.3) 04/16/22 05:30 Eosinophils % (Manual) 5.0 % (0.0-4.3) H 04/16/22 05:30 Basophils % (Manual) 0 % (0.0-1.8) 04/16/22 05:30 Metamyelocytes % 0 % 04/16/22 05:30 Myelocytes % 0 % 04/16/22 05:30 Promyelocytes % 0 % 04/16/22 05:30 Blast Cells % 0 % 04/16/22 05:30 Nucleated RBC % Not Reportable 04/16/22 05:30 Seg Neutrophils # Man 3.9 K/mm3 (1.8-7.7) 04/16/22 05:30 Band Neutrophils # 0.0 K/mm3 04/16/22 05:30 Lymphocytes # (Manual) 2.0 K/mm3 (1.2-5.4) 04/16/22 05:30 Abs React Lymphs (Man) 0.1 K/mm3 04/16/22 05:30 Monocytes # (Manual) 0.1 K/mm3 (0.0-0.8) 04/16/22 05:30 Eosinophils # (Manual) 0.3 K/mm3 (0.0-0.4) 04/16/22 05:30 Basophils # (Manual) 0.0 K/mm3 (0.0-0.1) 04/16/22 05:30 Metamyelocytes # 0.0 K/mm3 04/16/22 05:30 Myelocytes # 0.0 K/mm3 04/16/22 05:30 Promyelocytes # 0.0 K/mm3 04/16/22 05:30 Blast Cells # 0.0 K/mm3 04/16/22 05:30 WBC Morphology Not Reportable 04/16/22 05:30 Hypersegmented Neuts Not Reportable 04/16/22 05:30 Hyposegmented Neuts Not Reportable 04/16/22 05:30 Hypogranular Neuts Not Reportable 04/16/22 05:30 Smudge Cells Not Reportable 04/16/22 05:30 Toxic Granulation Not Reportable 04/16/22 05:30 Toxic Vacuolation Not Reportable 04/16/22 05:30 Dohle Bodies Not Reportable 04/16/22 05:30 Pelger-Huet Anomaly Not Reportable 04/16/22 05:30 Gage Rods Not Reportable 04/16/22 05:30 Platelet Estimate Consistent w auto 04/16/22 05:30 Clumped Platelets Not Reportable 04/16/22 05:30 Plt Clumps, EDTA Not Reportable 04/16/22 05:30 Large Platelets Rare 04/16/22 05:30 Giant Platelets Not Reportable 04/16/22 05:30 Platelet Satelliting Not Reportable 04/16/22 05:30 Plt Morphology Comment Not Reportable 04/16/22 05:30 RBC Morphology Not Reportable 04/16/22 05:30 Dimorphic RBCs Not Reportable 04/16/22 05:30 Polychromasia Not Reportable 04/16/22 05:30 Hypochromasia 2+ 04/16/22 05:30 Poikilocytosis 1+ 04/16/22 05:30 Anisocytosis 1+ 04/16/22 05:30 Microcytosis 1+ 04/16/22 05:30 Macrocytosis Not Reportable 04/16/22 05:30 Spherocytes Rare 04/16/22 05:30 Pappenheimer Bodies Not Reportable 04/16/22 05:30 Sickle Cells Not Reportable 04/16/22 05:30 Target Cells Rare 04/16/22 05:30 Tear Drop Cells Rare 04/16/22 05:30 Ovalocytes Few 04/16/22 05:30 Helmet Cells Not Reportable 04/16/22 05:30 [place] Bodies Not Reportable 04/16/22 05:30 [place] Rings Not Reportable 04/16/22 05:30 [place] Cells Not Reportable 04/16/22 05:30 Bite Cells Not Reportable 04/16/22 05:30 Crenated Cell Not Reportable 04/16/22 05:30 Elliptocytes Rare 04/16/22 05:30 Acanthocytes (Spur) Not Reportable 04/16/22 05:30 Rouleaux Not Reportable 04/16/22 05:30 Hemoglobin C Crystals Not Reportable 04/16/22 05:30 Schistocytes Not Reportable 04/16/22 05:30 Malaria parasites Not Reportable 04/16/22 05:30 Faustino Bodies Not Reportable 04/16/22 05:30 Hem Pathologist Commnt No 04/16/22 05:30 Sodium 141 mmol/L (137-145) 04/16/22 05:30 Potassium 4.3 mmol/L (3.6-5.0) 04/16/22 05:30 Chloride 105.1 mmol/L (98-107) 04/16/22 05:30 Carbon Dioxide 23 mmol/L (22-30) 04/16/22 05:30 Anion Gap 17 mmol/L 04/16/22 05:30 BUN 10 mg/dL (7-17) 04/16/22 05:30 Creatinine 0.7 mg/dL (0.6-1.2) 04/16/22 05:30 Estimated GFR > 60 ml/min 04/16/22 05:30 BUN/Creatinine Ratio 14 % 04/16/22 05:30 Glucose 146 mg/dL (65-100) H 04/16/22 05:30 POC Glucose 106 mg/dL (70-105) H 04/15/22 16:53 Hemoglobin A1c 8.5 % (4-6) H 04/16/22 05:30 Calcium 9.2 mg/dL (8.4-10.2) 04/16/22 05:30 Total Bilirubin 0.20 mg/dL (0.1-1.2) 04/16/22 05:30 AST 14 units/L (5-40) 04/16/22 05:30 ALT 8 units/L (7-56) 04/16/22 05:30 Alkaline Phosphatase 125 units/L (35-129) 04/16/22 05:30 Total Protein 7.2 g/dL (6.3-8.2) 04/16/22 05:30 Albumin 3.7 g/dL (3.9-5) L 04/16/22 05:30 Albumin/Globulin Ratio 1.1 % 04/16/22 05:30 Triglycerides 102 mg/dL (2-149) 04/16/22 05:30 Cholesterol 190 mg/dL (50-199) 04/16/22 05:30 LDL Cholesterol Direct 124 mg/dL (50-130) 04/16/22 05:30 HDL Cholesterol 48 mg/dL (40-59) 04/16/22 05:30 Cholesterol/HDL Ratio 3.95 % 04/16/22 05:30 TSH 0.363 mlU/mL (0.270-4.200) 04/16/22 05:30 Urine Color Straw (Yellow) 04/16/22 Unknown Urine Turbidity Clear (Clear) 04/16/22 Unknown Urine pH 6.0 (5.0-7.0) 04/16/22 Unknown Ur Specific [place] 1.008 (1.003-1.030) 04/16/22 Unknown Urine Protein <15 mg/dl mg/dL (Negative) 04/16/22 Unknown Urine Glucose (UA) Neg mg/dL (Negative) 04/16/22 Unknown Urine Ketones Neg mg/dL (Negative) 04/16/22 Unknown Urine Blood Neg (Negative) 04/16/22 Unknown Urine Nitrite Neg (Negative) 04/16/22 Unknown Urine Bilirubin Neg (Negative) 04/16/22 Unknown Urine Urobilinogen < 2.0 mg/dL (<2.0) 04/16/22 Unknown Ur Leukocyte Esterase Neg (Negative) 04/16/22 Unknown Urine WBC (Auto) 6.0 /HPF (0.0-6.0) 04/16/22 Unknown Urine RBC (Auto) < 1.0 /HPF (0.0-6.0) 04/16/22 Unknown U Epithel Cells (Auto) 6.0 /HPF (0-13.0) 04/16/22 Unknown Last Vital Signs Temp 98.4 F 04/17/22 07:49 Pulse 67 04/17/22 07:49 Resp 16 04/17/22 07:49 BP 113/72 04/17/22 07:49 Pulse Ox 100 04/17/22 07:49
[2022-04-17] MEDS ORDERED: traZODone 100 MG TAB PO SCH (22:00)
[2022-04-18] MEDS: oxyCODONE 5 MG TAB PO PRN ×3 (05:25→20:43)
[2022-04-18] MEDS: ACETAMINOPHEN 325 MG TAB PO PRN ×3 (05:26→20:44)
[2022-04-18] MEDS: CARISOPRODOL 350 MG TAB PO SCH (09:08)
[2022-04-18] MEDS: GABAPENTIN 400 MG CAP PO SCH ×4 (09:08→21:24)
[2022-04-18] MEDS: FLUoxetine 20 MG CAP PO SCH (09:08)
--- NOTE | 2022-04-18 09:29 | Progress Note ---
Subjective Date of service: 04/18/22 Principal diagnosis: SI/Depression Subjective Comment: 04/18: The patient was seen this morning. She reports having difficulty with maintaining sleep, and also reports having poor appetite. She continues to endorse depression with suicidal ideation however, she has no plan. She also admits to having AVHs " I see my niece and my mother telling me they will take my daughter." 04/17:The patient was seen today. She says she did not sleep well and states she was taking ambien. The patient is also asking if she could have her percocet in one pill instead of three times a day. She says the medication she's on has her mood all over the place. The patient still endorses SI without a plan. She also says she hears voices of her parents and sees them. REVIEW OF SYSTEMS Constitutional: Negative for weight loss ENT: Negative for stridor Respiratory: Negative for cough or hemoptysis All other systems reviewed and are negative MENTAL STATUS EXAMINATION General Appearance: Dressed appropriately, Age appropriate, wearing appropriate clothes, cooperative, polite with questioning, good eye contact Behavior: anxious, depressed Mood: "depressed" Affect and affective range: congruent with stated mood Thought Process: goal directed Speech: normal rate and volume Thought Content:suicidal/hallucinations Suicidal Ideation: Yes Homicidal Ideation: Denies HI Hallucinations: Auditory/Visual Delusions: none elicited Insight and Judgment: Limited Memory/Cognition: Limited Attention: Normal ASSESSMENT Bipolar Disorder, Current Episode Depressed Treatment Plan: Patient admitted for inpatient psychiatric evaluation, medication adjustment and close monitoring The patient's behavior, mood, sleep and appetite will be closely monitored. Patient enrolled in individual and group therapeutic sessions and encouraged to attend. Patient provided with a safe and structured environment. Patient's physical health needs will be addressed by the Hospitalist. Hospitalist Consulted Labs including CBC, CMP, Lipid profile and Hemoglobin A1C levels ordered for baseline reference Social Assessment will be completed and the [facility] will work with patient and family to ensure a suitable and safe disposition Medication adjustment will be made as clinically indicated continue Olanzapine 10mg po daily Start Remeron 15mg po QHS Usual Wellness [employer]/Preservation: - Start Trazodone 50 mg po QHS & 50 mg po QHS PRN between 10 PM & 2 AM for insomnia - Start Melatonin 5 mg po QHS to promote circadian rhythm The patient agreed on the treatment plan, understood the risk, benefit, alternative treatment, potential consequence of no treatment, and gave informed consent. Estimated days: [address] Dawkins Medications and Allergies Medications and Allergies Allergies Allergy/AdvReac Type Severity Reaction Status Date / Time ibuprofen Allergy Itching Verified 01/21/22 02:54 ketorolac tromethamine Allergy Rash Verified 01/21/22 02:54 [From Toradol] ketorolac [From Toradol] AdvReac Itching Verified 01/21/22 02:54 tramadol AdvReac Itching Verified 01/21/22 02:54 Home Medications Medication Instructions Recorded Confirmed Last Taken Type Gabapentin [Neurontin] 800 mg PO QID 04/23/18 04/15/22 06/27/20 History 1200 Gabapentin [Neurontin] 800 mg PO Q6H 05/04/20 04/15/22 2 Days Ago History ~06/25/20 Oxycodone HCl/Acetaminophen 10 mg PO Q6HR PRN 05/04/20 04/15/22 2 Days Ago History [Percocet 10/325 mg] ~06/25/20 oxyCODONE /ACETAMINOPHEN [Percocet 10 - 325 mg PO QID PRN 06/27/20 04/15/22 06/27/20 History 5/325 mg] 1300 traZODone [Desyrel] 100 mg PO QHS 06/27/20 04/15/22 2 Days Ago History ~06/25/20 Carisoprodol [Soma] 350 mg PO DAILY 07/26/20 04/15/22 2 Weeks Ago History ~07/12/20 350 mg Divalproex [Anthony MORROW] 125 mg PO BID 30 Days #60 tablet 07/12/21 04/15/22 Unknown Rx hydrOXYzine PAMOATE [Vistaril] 25 mg PO BID 30 Days #60 capsule 07/12/21 04/15/22 Unknown Rx traZODone [Desyrel] 50 mg PO QHS 30 Days #30 tab 07/12/21 04/15/22 Unknown Rx Active Meds: Active Medications Acetaminophen (Acetaminophen 325 Mg Tab) 650 mg PO Q4H PRN PRN Reason: Pain, Mild (1-3) Last Admin: 04/16/22 13:47 Dose: 650 mg Acetaminophen (Acetaminophen 325 Mg Tab) 325 mg PO Q8HR PRN PRN Reason: Pain , Severe (7-10) Last Admin: 04/18/22 05:26 Dose: 325 mg Carisoprodol (Carisoprodol 350 Mg Tab) 350 mg PO DAILY [facility] Last Admin: 04/18/22 09:08 Dose: 350 mg Fluoxetine HCl (Fluoxetine 20 Mg Cap) 20 mg PO QDAY [facility] Last Admin: 04/18/22 09:08 Dose: 20 mg Gabapentin (Gabapentin 400 Mg Cap) 800 mg PO QID [facility] Last Admin: 04/18/22 09:08 Dose: 800 mg Olanzapine (Olanzapine 10 Mg Tab) 10 mg PO QDAY [facility] Last Admin: 04/18/22 09:08 Dose: 10 mg Oxycodone HCl (Oxycodone 5 Mg Tab) 10 mg PO Q8HR PRN PRN Reason: Pain , Severe (7-10) Last Admin: 04/18/22 05:25 Dose: 10 mg Trazodone HCl (Trazodone 100 Mg Tab) 100 mg PO QHS [facility] Last Admin: 04/17/22 21:19 Dose: 100 mg Results - Results Labs/Vitals: Laboratory Last Values WBC 6.4 K/mm3 (4.5-11.0) 04/16/22 05:30 RBC 4.92 M/mm3 (3.65-5.03) 04/16/22 05:30 Hgb 10.4 gm/dl (10.1-14.3) 04/16/22 05:30 Hct 34.2 % (30.3-42.9) 04/16/22 05:30 MCV 70 fl (79-97) L 04/16/22 05:30 MCH 21 pg (28-32) L 04/16/22 05:30 MCHC 31 % (30-34) 04/16/22 05:30 RDW 18.3 % (13.2-15.2) H 04/16/22 05:30 Plt Count 386 K/mm3 (140-440) 04/16/22 05:30 Add Manual Diff Complete 04/16/22 05:30 Total Counted 100 04/16/22 05:30 Seg Neuts % (Manual) 61.0 % (40.0-70.0) 04/16/22 05:30 Band Neutrophils % 0 % 04/16/22 05:30 Lymphocytes % (Manual) 32.0 % (13.4-35.0) 04/16/22 05:30 Reactive Lymphs % (Man) 1.0 % 04/16/22 05:30 Monocytes % (Manual) 1.0 % (0.0-7.3) 04/16/22 05:30 Eosinophils % (Manual) 5.0 % (0.0-4.3) H 04/16/22 05:30 Basophils % (Manual) 0 % (0.0-1.8) 04/16/22 05:30 Metamyelocytes % 0 % 04/16/22 05:30 Myelocytes % 0 % 04/16/22 05:30 Promyelocytes % 0 % 04/16/22 05:30 Blast Cells % 0 % 04/16/22 05:30 Nucleated RBC % Not Reportable 04/16/22 05:30 Seg Neutrophils # Man 3.9 K/mm3 (1.8-7.7) 04/16/22 05:30 Band Neutrophils # 0.0 K/mm3 04/16/22 05:30 Lymphocytes # (Manual) 2.0 K/mm3 (1.2-5.4) 04/16/22 05:30 Abs React Lymphs (Man) 0.1 K/mm3 04/16/22 05:30 Monocytes # (Manual) 0.1 K/mm3 (0.0-0.8) 04/16/22 05:30 Eosinophils # (Manual) 0.3 K/mm3 (0.0-0.4) 04/16/22 05:30 Basophils # (Manual) 0.0 K/mm3 (0.0-0.1) 04/16/22 05:30 Metamyelocytes # 0.0 K/mm3 04/16/22 05:30 Myelocytes # 0.0 K/mm3 04/16/22 05:30 Promyelocytes # 0.0 K/mm3 04/16/22 05:30 Blast Cells # 0.0 K/mm3 04/16/22 05:30 WBC Morphology Not Reportable 04/16/22 05:30 Hypersegmented Neuts Not Reportable 04/16/22 05:30 Hyposegmented Neuts Not Reportable 04/16/22 05:30 Hypogranular Neuts Not Reportable 04/16/22 05:30 Smudge Cells Not Reportable 04/16/22 05:30 Toxic Granulation Not Reportable 04/16/22 05:30 Toxic Vacuolation Not Reportable 04/16/22 05:30 Dohle Bodies Not Reportable 04/16/22 05:30 Pelger-Huet Anomaly Not Reportable 04/16/22 05:30 Gage Rods Not Reportable 04/16/22 05:30 Platelet Estimate Consistent w auto 04/16/22 05:30 Clumped Platelets Not Reportable 04/16/22 05:30 Plt Clumps, EDTA Not Reportable 04/16/22 05:30 Large Platelets Rare 04/16/22 05:30 Giant Platelets Not Reportable 04/16/22 05:30 Platelet Satelliting Not Reportable 04/16/22 05:30 Plt Morphology Comment Not Reportable 04/16/22 05:30 RBC Morphology Not Reportable 04/16/22 05:30 Dimorphic RBCs Not Reportable 04/16/22 05:30 Polychromasia Not Reportable 04/16/22 05:30 Hypochromasia 2+ 04/16/22 05:30 Poikilocytosis 1+ 04/16/22 05:30 Anisocytosis 1+ 04/16/22 05:30 Microcytosis 1+ 04/16/22 05:30 Macrocytosis Not Reportable 04/16/22 05:30 Spherocytes Rare 04/16/22 05:30 Pappenheimer Bodies Not Reportable 04/16/22 05:30 Sickle Cells Not Reportable 04/16/22 05:30 Target Cells Rare 04/16/22 05:30 Tear Drop Cells Rare 04/16/22 05:30 Ovalocytes Few 04/16/22 05:30 Helmet Cells Not Reportable 04/16/22 05:30 Campbell-Melvin Bodies Not Reportable 04/16/22 05:30 [place] Rings Not Reportable 04/16/22 05:30 [place] Cells Not Reportable 04/16/22 05:30 Bite Cells Not Reportable 04/16/22 05:30 Crenated Cell Not Reportable 04/16/22 05:30 Elliptocytes Rare 04/16/22 05:30 Acanthocytes (Spur) Not Reportable 04/16/22 05:30 Rouleaux Not Reportable 04/16/22 05:30 Hemoglobin C Crystals Not Reportable 04/16/22 05:30 Schistocytes Not Reportable 04/16/22 05:30 Malaria parasites Not Reportable 04/16/22 05:30 Faustino Bodies Not Reportable 04/16/22 05:30 Hem Pathologist Commnt No 04/16/22 05:30 Sodium 141 mmol/L (137-145) 04/16/22 05:30 Potassium 4.3 mmol/L (3.6-5.0) 04/16/22 05:30 Chloride 105.1 mmol/L (98-107) 04/16/22 05:30 Carbon Dioxide 23 mmol/L (22-30) 04/16/22 05:30 Anion Gap 17 mmol/L 04/16/22 05:30 BUN 10 mg/dL (7-17) 04/16/22 05:30 Creatinine 0.7 mg/dL (0.6-1.2) 04/16/22 05:30 Estimated GFR > 60 ml/min 04/16/22 05:30 BUN/Creatinine Ratio 14 % 04/16/22 05:30 Glucose 146 mg/dL (65-100) H 04/16/22 05:30 POC Glucose 106 mg/dL (70-105) H 04/15/22 16:53 Hemoglobin A1c 8.5 % (4-6) H 04/16/22 05:30 Calcium 9.2 mg/dL (8.4-10.2) 04/16/22 05:30 Total Bilirubin 0.20 mg/dL (0.1-1.2) 04/16/22 05:30 AST 14 units/L (5-40) 04/16/22 05:30 ALT 8 units/L (7-56) 04/16/22 05:30 Alkaline Phosphatase 125 units/L (35-129) 04/16/22 05:30 Total Protein 7.2 g/dL (6.3-8.2) 04/16/22 05:30 Albumin 3.7 g/dL (3.9-5) L 04/16/22 05:30 Albumin/Globulin Ratio 1.1 % 04/16/22 05:30 Triglycerides 102 mg/dL (2-149) 04/16/22 05:30 Cholesterol 190 mg/dL (50-199) 04/16/22 05:30 LDL Cholesterol Direct 124 mg/dL (50-130) 04/16/22 05:30 HDL Cholesterol 48 mg/dL (40-59) 04/16/22 05:30 Cholesterol/HDL Ratio 3.95 % 04/16/22 05:30 TSH 0.363 mlU/mL (0.270-4.200) 04/16/22 05:30 Urine Color Straw (Yellow) 04/16/22 Unknown Urine Turbidity Clear (Clear) 04/16/22 Unknown Urine pH 6.0 (5.0-7.0) 04/16/22 Unknown Ur Specific [place] 1.008 (1.003-1.030) 04/16/22 Unknown Urine Protein <15 mg/dl mg/dL (Negative) 04/16/22 Unknown Urine Glucose (UA) Neg mg/dL (Negative) 04/16/22 Unknown Urine Ketones Neg mg/dL (Negative) 04/16/22 Unknown Urine Blood Neg (Negative) 04/16/22 Unknown Urine Nitrite Neg (Negative) 04/16/22 Unknown Urine Bilirubin Neg (Negative) 04/16/22 Unknown Urine Urobilinogen < 2.0 mg/dL (<2.0) 04/16/22 Unknown Ur Leukocyte Esterase Neg (Negative) 04/16/22 Unknown Urine WBC (Auto) 6.0 /HPF (0.0-6.0) 04/16/22 Unknown Urine RBC (Auto) < 1.0 /HPF (0.0-6.0) 04/16/22 Unknown U Epithel Cells (Auto) 6.0 /HPF (0-13.0) 04/16/22 Unknown Last Vital Signs Temp 98.2 F 04/17/22 19:07 Pulse 72 04/17/22 19:07 Resp 17 04/17/22 19:07 BP 104/77 04/17/22 19:07 Pulse Ox 99 04/17/22 19:07
--- NOTE | 2022-04-18 15:42 | Progress Note ---
Assessment and Plan - Patient Problems (1) Bipolar 1 disorder, depressed Current Visit: No Status: Chronic Plan to address problem: Continue medical management, supportive care. (2) Degenerative joint disease Current Visit: Yes Status: Acute Plan to address problem: Pain control, supportive care, continue medical management. (3) Chronic pain Current Visit: No Status: Acute Qualifiers: Chronic pain type: chronic pain syndrome Qualified Code(s): G89.4 - Chronic pain syndrome Plan to address problem: Continue medical management, supportive care, pain control. (4) Advance care planning Current Visit: Yes Status: Acute Plan to address problem: Disease education done, care plan discussed, diagnoses discussed, prognosis discussed, patient is full code. Patient knowledges understanding and agreement with care plan, +30 minutes. (5) Preventative health care Current Visit: Yes Status: Acute Plan to address problem: Patient counseled regarding outpatient follow-up with primary care physician for all age and risk factor appropriate screening test, balanced diet, +30 minutes. History Interval history: 51 YO Female with Bipolar Disorder, Chronic Pain, DJD admitted to [facility] for Psychiatric stabilization. Consult placed by Dr. Davis for medical management. Patient seen and evaluated in the recreation room. Patient resting calmly. No reported nursing events. Patient resting calmly. Hospitalist Physical - Constitutional Vitals: Temp Pulse Resp BP Pulse Ox 98.9 F 81 16 101/61 99 04/18/22 09:09 04/18/22 09:09 04/18/22 09:09 04/18/22 09:09 04/18/22 09:09 General appearance: Present: no acute distress, well-nourished - EENT Eyes: Present: PERRL ENT: hearing intact - Neck Neck: Present: supple - Respiratory Respiratory effort: normal Respiratory: bilateral: CTA - Cardiovascular Rhythm: regular Heart Sounds: Present: S1 & S2 - Extremities Extremities: no ischemia Peripheral Pulses: within normal limits - Abdominal General gastrointestinal: soft, non-tender, non-distended - Integumentary Integumentary: Present: clear, dry - Psychiatric Psychiatric: cooperative - Neurologic Neurologic: CNII-XII intact Results - Labs CBC & Chem 7: 04/16/22 05:30 04/16/22 05:30 Labs: Laboratory Last Values WBC 6.4 K/mm3 (4.5-11.0) 04/16/22 05:30 RBC 4.92 M/mm3 (3.65-5.03) 04/16/22 05:30 Hgb 10.4 gm/dl (10.1-14.3) 04/16/22 05:30 Hct 34.2 % (30.3-42.9) 04/16/22 05:30 MCV 70 fl (79-97) L 04/16/22 05:30 MCH 21 pg (28-32) L 04/16/22 05:30 MCHC 31 % (30-34) 04/16/22 05:30 RDW 18.3 % (13.2-15.2) H 04/16/22 05:30 Plt Count 386 K/mm3 (140-440) 04/16/22 05:30 Add Manual Diff Complete 04/16/22 05:30 Total Counted 100 04/16/22 05:30 Seg Neuts % (Manual) 61.0 % (40.0-70.0) 04/16/22 05:30 Band Neutrophils % 0 % 04/16/22 05:30 Lymphocytes % (Manual) 32.0 % (13.4-35.0) 04/16/22 05:30 Reactive Lymphs % (Man) 1.0 % 04/16/22 05:30 Monocytes % (Manual) 1.0 % (0.0-7.3) 04/16/22 05:30 Eosinophils % (Manual) 5.0 % (0.0-4.3) H 04/16/22 05:30 Basophils % (Manual) 0 % (0.0-1.8) 04/16/22 05:30 Metamyelocytes % 0 % 04/16/22 05:30 Myelocytes % 0 % 04/16/22 05:30 Promyelocytes % 0 % 04/16/22 05:30 Blast Cells % 0 % 04/16/22 05:30 Nucleated RBC % Not Reportable 04/16/22 05:30 Seg Neutrophils # Man 3.9 K/mm3 (1.8-7.7) 04/16/22 05:30 Band Neutrophils # 0.0 K/mm3 04/16/22 05:30 Lymphocytes # (Manual) 2.0 K/mm3 (1.2-5.4) 04/16/22 05:30 Abs React Lymphs (Man) 0.1 K/mm3 04/16/22 05:30 Monocytes # (Manual) 0.1 K/mm3 (0.0-0.8) 04/16/22 05:30 Eosinophils # (Manual) 0.3 K/mm3 (0.0-0.4) 04/16/22 05:30 Basophils # (Manual) 0.0 K/mm3 (0.0-0.1) 04/16/22 05:30 Metamyelocytes # 0.0 K/mm3 04/16/22 05:30 Myelocytes # 0.0 K/mm3 04/16/22 05:30 Promyelocytes # 0.0 K/mm3 04/16/22 05:30 Blast Cells # 0.0 K/mm3 04/16/22 05:30 WBC Morphology Not Reportable 04/16/22 05:30 Hypersegmented Neuts Not Reportable 04/16/22 05:30 Hyposegmented Neuts Not Reportable 04/16/22 05:30 Hypogranular Neuts Not Reportable 04/16/22 05:30 Smudge Cells Not Reportable 04/16/22 05:30 Toxic Granulation Not Reportable 04/16/22 05:30 Toxic Vacuolation Not Reportable 04/16/22 05:30 Dohle Bodies Not Reportable 04/16/22 05:30 Pelger-Huet Anomaly Not Reportable 04/16/22 05:30 Gage Rods Not Reportable 04/16/22 05:30 Platelet Estimate Consistent w auto 04/16/22 05:30 Clumped Platelets Not Reportable 04/16/22 05:30 Plt Clumps, EDTA Not Reportable 04/16/22 05:30 Large Platelets Rare 04/16/22 05:30 Giant Platelets Not Reportable 04/16/22 05:30 Platelet Satelliting Not Reportable 04/16/22 05:30 Plt Morphology Comment Not Reportable 04/16/22 05:30 RBC Morphology Not Reportable 04/16/22 05:30 Dimorphic RBCs Not Reportable 04/16/22 05:30 Polychromasia Not Reportable 04/16/22 05:30 Hypochromasia 2+ 04/16/22 05:30 Poikilocytosis 1+ 04/16/22 05:30 Anisocytosis 1+ 04/16/22 05:30 Microcytosis 1+ 06/22/22 05:30 Macrocytosis Not Reportable 04/16/22 05:30 Spherocytes Rare 04/16/22 05:30 Pappenheimer Bodies Not Reportable 04/16/22 05:30 Sickle Cells Not Reportable 04/16/22 05:30 Target Cells Rare 04/16/22 05:30 Tear Drop Cells Rare 04/16/22 05:30 Ovalocytes Few 04/16/22 05:30 Helmet Cells Not Reportable 04/16/22 05:30 Campbell-Reese Bodies Not Reportable 04/16/22 05:30 [place] Rings Not Reportable 04/16/22 05:30 [place] Cells Not Reportable 04/16/22 05:30 Bite Cells Not Reportable 04/16/22 05:30 Crenated Cell Not Reportable 04/16/22 05:30 Elliptocytes Rare 04/16/22 05:30 Acanthocytes (Spur) Not Reportable 04/16/22 05:30 Rouleaux Not Reportable 04/16/22 05:30 Hemoglobin C Crystals Not Reportable 04/16/22 05:30 Schistocytes Not Reportable 04/16/22 05:30 Malaria parasites Not Reportable 04/16/22 05:30 Faustino Bodies Not Reportable 04/16/22 05:30 Hem Pathologist Commnt No 04/16/22 05:30 Sodium 141 mmol/L (137-145) 04/16/22 05:30 Potassium 4.3 mmol/L (3.6-5.0) 04/16/22 05:30 Chloride 105.1 mmol/L (98-107) 04/16/22 05:30 Carbon Dioxide 23 mmol/L (22-30) 04/16/22 05:30 Anion Gap 17 mmol/L 04/16/22 05:30 BUN 10 mg/dL (7-17) 04/16/22 05:30 Creatinine 0.7 mg/dL (0.6-1.2) 04/16/22 05:30 Estimated GFR > 60 ml/min 04/16/22 05:30 BUN/Creatinine Ratio 14 % 04/16/22 05:30 Glucose 146 mg/dL (65-100) H 04/16/22 05:30 POC Glucose 106 mg/dL (70-105) H 04/15/22 16:53 Hemoglobin A1c 8.5 % (4-6) H 04/16/22 05:30 Calcium 9.2 mg/dL (8.4-10.2) 04/16/22 05:30 Total Bilirubin 0.20 mg/dL (0.1-1.2) 04/16/22 05:30 AST 14 units/L (5-40) 04/16/22 05:30 ALT 8 units/L (7-56) 04/16/22 05:30 Alkaline Phosphatase 125 units/L (35-129) 04/16/22 05:30 Total Protein 7.2 g/dL (6.3-8.2) 04/16/22 05:30 Albumin 3.7 g/dL (3.9-5) L 04/16/22 05:30 Albumin/Globulin Ratio 1.1 % 04/16/22 05:30 Triglycerides 102 mg/dL (2-149) 04/16/22 05:30 Cholesterol 190 mg/dL (50-199) 04/16/22 05:30 LDL Cholesterol Direct 124 mg/dL (50-130) 04/16/22 05:30 HDL Cholesterol 48 mg/dL (40-59) 04/16/22 05:30 Cholesterol/HDL Ratio 3.95 % 04/16/22 05:30 TSH 0.363 mlU/mL (0.270-4.200) 04/16/22 05:30 Urine Color Straw (Yellow) 04/16/22 Unknown Urine Turbidity Clear (Clear) 04/16/22 Unknown Urine pH 6.0 (5.0-7.0) 04/16/22 Unknown Ur Specific [place] 1.008 (1.003-1.030) 04/16/22 Unknown Urine Protein <15 mg/dl mg/dL (Negative) 04/16/22 Unknown Urine Glucose (UA) Neg mg/dL (Negative) 04/16/22 Unknown Urine Ketones Neg mg/dL (Negative) 04/16/22 Unknown Urine Blood Neg (Negative) 04/16/22 Unknown Urine Nitrite Neg (Negative) 04/16/22 Unknown Urine Bilirubin Neg (Negative) 04/16/22 Unknown Urine Urobilinogen < 2.0 mg/dL (<2.0) 04/16/22 Unknown Ur Leukocyte Esterase Neg (Negative) 04/16/22 Unknown Urine WBC (Auto) 6.0 /HPF (0.0-6.0) 04/16/22 Unknown Urine RBC (Auto) < 1.0 /HPF (0.0-6.0) 04/16/22 Unknown U Epithel Cells (Auto) 6.0 /HPF (0-13.0) 04/16/22 Unknown [place]/IV: Voiding Method Toilet Active Medications - Current Medications Current Medications: Generic Name Dose Route Start Last Admin Trade Name Freq PRN Reason Stop Dose Admin Acetaminophen 650 mg 04/15/22 16:00 04/18/22 13:55 Acetaminophen 325 Mg Tab PO 650 mg Q4H PRN Administration Pain, Mild (1-3) Acetaminophen 325 mg 04/16/22 14:00 04/18/22 05:26 Acetaminophen 325 Mg Tab PO 325 mg Q8HR PRN Administration Pain , Severe (7-10) Carisoprodol 350 mg 04/17/22 10:00 04/18/22 09:08 Carisoprodol 350 Mg Tab PO 350 mg DAILY HELEN Administration Fluoxetine HCl 20 mg 04/16/22 17:00 04/18/22 09:08 Fluoxetine 20 Mg Cap PO 20 mg QDAY HELEN Administration Gabapentin 800 mg 04/15/22 22:00 04/18/22 13:54 Gabapentin 400 Mg Cap PO 800 mg QID HELEN Administration Mirtazapine 15 mg 04/18/22 22:00 Mirtazapine 15 Mg Tab PO QHS HELEN Olanzapine 10 mg 04/18/22 10:00 04/18/22 09:08 Olanzapine 10 Mg Tab PO 10 mg QDAY HELEN Administration Oxycodone HCl 10 mg 04/16/22 14:00 04/18/22 13:54 Oxycodone 5 Mg Tab PO 10 mg Q8HR PRN Administration Pain , Severe (7-10)
[2022-04-18] MEDS: MIRTAZAPINE 15 MG TAB PO SCH (21:24)
[2022-04-19] MEDS: oxyCODONE 5 MG TAB PO PRN ×3 (05:57→22:09)
[2022-04-19] MEDS: ACETAMINOPHEN 325 MG TAB PO PRN ×3 (05:58→22:14)
[2022-04-19] MEDS: GABAPENTIN 400 MG CAP PO SCH ×4 (09:00→21:37)
[2022-04-19] MEDS: FLUoxetine 20 MG CAP PO SCH (09:00)
[2022-04-19] MEDS: CARISOPRODOL 350 MG TAB PO SCH (09:00)
--- NOTE | 2022-04-19 09:06 | Progress Note ---
Subjective Date of service: 04/19/22 Principal diagnosis: SI/Depression Subjective Comment: 04/19: The patient was seen this morning. She continues to endorse depression, rates as 8/10 with suicidal ideation. She reports having auditory hallucinations " voices telling me they will kill my son." She denies visual hallucinations. 04/18: The patient was seen this morning. She reports having difficulty with maintaining sleep, and also reports having poor appetite. She continues to endorse depression with suicidal ideation however, she has no plan. She also admits to having AVHs " I see my niece and my mother telling me they will take my daughter." 04/17:The patient was seen today. She says she did not sleep well and states she was taking ambien. The patient is also asking if she could have her percocet in one pill instead of three times a day. She says the medication she's on has her mood all over the place. The patient still endorses SI without a plan. She also says she hears voices of her parents and sees them. REVIEW OF SYSTEMS Constitutional: Negative for weight loss ENT: Negative for stridor Respiratory: Negative for cough or hemoptysis All other systems reviewed and are negative MENTAL STATUS EXAMINATION General Appearance: Dressed appropriately, Age appropriate, wearing appropriate clothes, cooperative, polite with questioning, good eye contact Behavior: anxious, depressed Mood: "depressed" Affect and affective range: congruent with stated mood Thought Process: goal directed Speech: normal rate and volume Thought Content:suicidal/hallucinations Suicidal Ideation: Yes Homicidal Ideation: Denies HI Hallucinations: Auditory Delusions: none elicited Insight and Judgment: Limited Memory/Cognition: Limited Attention: Normal ASSESSMENT Bipolar Disorder, Current Episode Depressed Treatment Plan: Patient admitted for inpatient psychiatric evaluation, medication adjustment and close monitoring The patient's behavior, mood, sleep and appetite will be closely monitored. Patient enrolled in individual and group therapeutic sessions and encouraged to attend. Patient provided with a safe and structured environment. Patient's physical health needs will be addressed by the Hospitalist. Hospitalist Consulted Labs including CBC, CMP, Lipid profile and Hemoglobin A1C levels ordered for baseline reference Social Assessment will be completed and the Grades 6 Through 8 Teacher will work with patient and family to ensure a suitable and safe disposition Medication adjustment will be made as clinically indicated Increase Olanzapine 15mg po daily Start Benzatropine 0.5mg po BID Continue Remeron 15mg po QHS Usual Wellness Restorationist/Preservation: - Start Trazodone 50 mg po QHS & 50 mg po QHS PRN between 10 PM & 2 AM for insomnia - Start Melatonin 5 mg po QHS to promote circadian rhythm The patient agreed on the treatment plan, understood the risk, benefit, alternative treatment, potential consequence of no treatment, and gave informed consent. Estimated days: [address] Dawkins Medications and Allergies Medications and Allergies Allergies Allergy/AdvReac Type Severity Reaction Status Date / Time ibuprofen Allergy Itching Verified 01/21/22 02:54 ketorolac tromethamine Allergy Rash Verified 01/21/22 02:54 [From Toradol] ketorolac [From Toradol] AdvReac Itching Verified 01/21/22 02:54 tramadol AdvReac Itching Verified 01/21/22 02:54 Home Medications Medication Instructions Recorded Confirmed Last Taken Type Gabapentin [Neurontin] 800 mg PO QID 04/23/18 04/15/22 06/27/20 History 1200 Gabapentin [Neurontin] 800 mg PO Q6H 05/04/20 04/15/22 2 Days Ago History ~06/25/20 Oxycodone HCl/Acetaminophen 10 mg PO Q6HR PRN 05/04/20 04/15/22 2 Days Ago History [Percocet 10/325 mg] ~06/25/20 oxyCODONE /ACETAMINOPHEN [Percocet 10 - 325 mg PO QID PRN 06/27/20 04/15/22 06/27/20 History 5/325 mg] 1300 traZODone [Desyrel] 100 mg PO QHS 06/27/20 04/15/22 2 Days Ago History ~06/25/20 Carisoprodol [Soma] 350 mg PO DAILY 07/26/20 04/15/22 2 Weeks Ago History ~07/12/20 350 mg Divalproex [Anthony MORROW] 125 mg PO BID 30 Days #60 tablet 07/12/21 04/15/22 Unknown Rx hydrOXYzine PAMOATE [Vistaril] 25 mg PO BID 30 Days #60 capsule 07/12/21 04/15/22 Unknown Rx traZODone [Desyrel] 50 mg PO QHS 30 Days #30 tab 07/12/21 04/15/22 Unknown Rx Active Meds: Active Medications Acetaminophen (Acetaminophen 325 Mg Tab) 650 mg PO Q4H PRN PRN Reason: Pain, Mild (1-3) Last Admin: 04/18/22 13:55 Dose: 650 mg Acetaminophen (Acetaminophen 325 Mg Tab) 325 mg PO Q8HR PRN PRN Reason: Pain , Severe (7-10) Last Admin: 04/19/22 05:58 Dose: 325 mg Carisoprodol (Carisoprodol 350 Mg Tab) 350 mg PO DAILY [facility] Last Admin: 04/19/22 09:00 Dose: 350 mg Fluoxetine HCl (Fluoxetine 20 Mg Cap) 20 mg PO QDAY [facility] Last Admin: 04/19/22 09:00 Dose: 20 mg Gabapentin (Gabapentin 400 Mg Cap) 800 mg PO QID [facility] Last Admin: 04/19/22 09:00 Dose: 800 mg Mirtazapine (Mirtazapine 15 Mg Tab) 15 mg PO QHS [facility] Last Admin: 04/18/22 21:24 Dose: 15 mg Olanzapine (Olanzapine 10 Mg Tab) 10 mg PO QDAY [facility] Last Admin: 04/19/22 09:00 Dose: 10 mg Oxycodone HCl (Oxycodone 5 Mg Tab) 10 mg PO Q8HR PRN PRN Reason: Pain , Severe (7-10) Last Admin: 04/19/22 05:57 Dose: 10 mg Results - Results Labs/Vitals: Laboratory Last Values WBC 6.4 K/mm3 (4.5-11.0) 04/16/22 05:30 RBC 4.92 M/mm3 (3.65-5.03) 04/16/22 05:30 Hgb 10.4 gm/dl (10.1-14.3) 04/16/22 05:30 Hct 34.2 % (30.3-42.9) 04/16/22 05:30 MCV 70 fl (79-97) L 04/16/22 05:30 MCH 21 pg (28-32) L 04/16/22 05:30 MCHC 31 % (30-34) 04/16/22 05:30 RDW 18.3 % (13.2-15.2) H 04/16/22 05:30 Plt Count 386 K/mm3 (140-440) 04/16/22 05:30 Add Manual Diff Complete 04/16/22 05:30 Total Counted 100 04/16/22 05:30 Seg Neuts % (Manual) 61.0 % (40.0-70.0) 04/16/22 05:30 Band Neutrophils % 0 % 04/16/22 05:30 Lymphocytes % (Manual) 32.0 % (13.4-35.0) 04/16/22 05:30 Reactive Lymphs % (Man) 1.0 % 04/16/22 05:30 Monocytes % (Manual) 1.0 % (0.0-7.3) 04/16/22 05:30 Eosinophils % (Manual) 5.0 % (0.0-4.3) H 04/16/22 05:30 Basophils % (Manual) 0 % (0.0-1.8) 04/16/22 05:30 Metamyelocytes % 0 % 04/16/22 05:30 Myelocytes % 0 % 04/16/22 05:30 Promyelocytes % 0 % 04/16/22 05:30 Blast Cells % 0 % 04/16/22 05:30 Nucleated RBC % Not Reportable 04/16/22 05:30 Seg Neutrophils # Man 3.9 K/mm3 (1.8-7.7) 04/16/22 05:30 Band Neutrophils # 0.0 K/mm3 04/16/22 05:30 Lymphocytes # (Manual) 2.0 K/mm3 (1.2-5.4) 04/16/22 05:30 Abs React Lymphs (Man) 0.1 K/mm3 04/16/22 05:30 Monocytes # (Manual) 0.1 K/mm3 (0.0-0.8) 04/16/22 05:30 Eosinophils # (Manual) 0.3 K/mm3 (0.0-0.4) 04/16/22 05:30 Basophils # (Manual) 0.0 K/mm3 (0.0-0.1) 04/16/22 05:30 Metamyelocytes # 0.0 K/mm3 04/16/22 05:30 Myelocytes # 0.0 K/mm3 04/16/22 05:30 Promyelocytes # 0.0 K/mm3 04/16/22 05:30 Blast Cells # 0.0 K/mm3 04/16/22 05:30 WBC Morphology Not Reportable 04/16/22 05:30 Hypersegmented Neuts Not Reportable 04/16/22 05:30 Hyposegmented Neuts Not Reportable 04/16/22 05:30 Hypogranular Neuts Not Reportable 04/16/22 05:30 Smudge Cells Not Reportable 04/16/22 05:30 Toxic Granulation Not Reportable 04/16/22 05:30 Toxic Vacuolation Not Reportable 04/16/22 05:30 Dohle Bodies Not Reportable 04/16/22 05:30 Pelger-Huet Anomaly Not Reportable 04/16/22 05:30 Gage Rods Not Reportable 04/16/22 05:30 Platelet Estimate Consistent w auto 04/16/22 05:30 Clumped Platelets Not Reportable 04/16/22 05:30 Plt Clumps, EDTA Not Reportable 04/16/22 05:30 Large Platelets Rare 04/16/22 05:30 Giant Platelets Not Reportable 04/16/22 05:30 Platelet Satelliting Not Reportable 04/16/22 05:30 Plt Morphology Comment Not Reportable 04/16/22 05:30 RBC Morphology Not Reportable 04/16/22 05:30 Dimorphic RBCs Not Reportable 04/16/22 05:30 Polychromasia Not Reportable 04/16/22 05:30 Hypochromasia 2+ 04/16/22 05:30 Poikilocytosis 1+ 04/16/22 05:30 Anisocytosis 1+ 04/16/22 05:30 Microcytosis 1+ 04/16/22 05:30 Macrocytosis Not Reportable 04/16/22 05:30 Spherocytes Rare 04/16/22 05:30 Pappenheimer Bodies Not Reportable 04/16/22 05:30 Sickle Cells Not Reportable 04/16/22 05:30 Target Cells Rare 04/16/22 05:30 Tear Drop Cells Rare 04/16/22 05:30 Ovalocytes Few 04/16/22 05:30 Helmet Cells Not Reportable 04/16/22 05:30 [place] Bodies Not Reportable 04/16/22 05:30 [place] Rings Not Reportable 04/16/22 05:30 [place] Cells Not Reportable 04/16/22 05:30 Bite Cells Not Reportable 04/16/22 05:30 Crenated Cell Not Reportable 04/16/22 05:30 Elliptocytes Rare 04/16/22 05:30 Acanthocytes (Spur) Not Reportable 04/16/22 05:30 Rouleaux Not Reportable 04/16/22 05:30 Hemoglobin C Crystals Not Reportable 04/16/22 05:30 Schistocytes Not Reportable 04/16/22 05:30 Malaria parasites Not Reportable 04/16/22 05:30 Faustino Bodies Not Reportable 04/16/22 05:30 Hem Pathologist Commnt No 04/16/22 05:30 Sodium 141 mmol/L (137-145) 04/16/22 05:30 Potassium 4.3 mmol/L (3.6-5.0) 04/16/22 05:30 Chloride 105.1 mmol/L (98-107) 04/16/22 05:30 Carbon Dioxide 23 mmol/L (22-30) 04/16/22 05:30 Anion Gap 17 mmol/L 04/16/22 05:30 BUN 10 mg/dL (7-17) 04/16/22 05:30 Creatinine 0.7 mg/dL (0.6-1.2) 04/16/22 05:30 Estimated GFR > 60 ml/min 04/16/22 05:30 BUN/Creatinine Ratio 14 % 04/16/22 05:30 Glucose 146 mg/dL (65-100) H 04/16/22 05:30 POC Glucose 106 mg/dL (70-105) H 04/15/22 16:53 Hemoglobin A1c 8.5 % (4-6) H 04/16/22 05:30 Calcium 9.2 mg/dL (8.4-10.2) 04/16/22 05:30 Total Bilirubin 0.20 mg/dL (0.1-1.2) 04/16/22 05:30 AST 14 units/L (5-40) 04/16/22 05:30 ALT 8 units/L (7-56) 04/16/22 05:30 Alkaline Phosphatase 125 units/L (35-129) 04/16/22 05:30 Total Protein 7.2 g/dL (6.3-8.2) 04/16/22 05:30 Albumin 3.7 g/dL (3.9-5) L 04/16/22 05:30 Albumin/Globulin Ratio 1.1 % 04/16/22 05:30 Triglycerides 102 mg/dL (2-149) 04/16/22 05:30 Cholesterol 190 mg/dL (50-199) 04/16/22 05:30 LDL Cholesterol Direct 124 mg/dL (50-130) 04/16/22 05:30 HDL Cholesterol 48 mg/dL (40-59) 04/16/22 05:30 Cholesterol/HDL Ratio 3.95 % 04/16/22 05:30 TSH 0.363 mlU/mL (0.270-4.200) 04/16/22 05:30 Urine Color Straw (Yellow) 04/16/22 Unknown Urine Turbidity Clear (Clear) 04/16/22 Unknown Urine pH 6.0 (5.0-7.0) 04/16/22 Unknown Ur Specific [place] 1.008 (1.003-1.030) 04/16/22 Unknown Urine Protein <15 mg/dl mg/dL (Negative) 04/16/22 Unknown Urine Glucose (UA) Neg mg/dL (Negative) 04/16/22 Unknown Urine Ketones Neg mg/dL (Negative) 04/16/22 Unknown Urine Blood Neg (Negative) 04/16/22 Unknown Urine Nitrite Neg (Negative) 04/16/22 Unknown Urine Bilirubin Neg (Negative) 04/16/22 Unknown Urine Urobilinogen < 2.0 mg/dL (<2.0) 04/16/22 Unknown Ur Leukocyte Esterase Neg (Negative) 04/16/22 Unknown Urine WBC (Auto) 6.0 /HPF (0.0-6.0) 04/16/22 Unknown Urine RBC (Auto) < 1.0 /HPF (0.0-6.0) 04/16/22 Unknown U Epithel Cells (Auto) 6.0 /HPF (0-13.0) 04/16/22 Unknown Last Vital Signs Temp 98.9 F 04/18/22 19:44 Pulse 89 04/18/22 19:44 Resp 20 04/19/22 05:58 BP 107/68 04/18/22 19:44 Pulse Ox 98 04/18/22 19:44
[2022-04-19] MEDS ORDERED: BENZTROPINE 0.5 MG TAB PO SCH (10:00)
[2022-04-19] MEDS: MIRTAZAPINE 15 MG TAB PO SCH (21:38)
[2022-04-20] MEDS: oxyCODONE 5 MG TAB PO PRN ×3 (06:17→21:13)
[2022-04-20] MEDS: ACETAMINOPHEN 325 MG TAB PO PRN ×3 (06:19→21:12)
--- NOTE | 2022-04-20 08:50 | Progress Note ---
Subjective Date of service: 04/20/22 Principal diagnosis: SI/Depression Subjective Comment: 04/20:The patient was seen this morning. She reports feeling better, rates depression as 2/10. She continues to complain of difficulty with maintaining sleep. She denies suicidal/homicidal ideation and denies hallucinations. Start Melatonin 5mg po QHS PRN . 04/19: The patient was seen this morning. She continues to endorse depression, rates as 8/10 with suicidal ideation. She reports having auditory hallucinations " voices telling me they will kill my son." She denies visual hallucinations. 04/18: The patient was seen this morning. She reports having difficulty with maintaining sleep, and also reports having poor appetite. She continues to endorse depression with suicidal ideation however, she has no plan. She also admits to having AVHs " I see my niece and my mother telling me they will take my daughter." 04/17:The patient was seen today. She says she did not sleep well and states she was taking ambien. The patient is also asking if she could have her percocet in one pill instead of three times a day. She says the medication she's on has her mood all over the place. The patient still endorses SI without a plan. She also says she hears voices of her parents and sees them. REVIEW OF SYSTEMS Constitutional: Negative for weight loss ENT: Negative for stridor Respiratory: Negative for cough or hemoptysis All other systems reviewed and are negative MENTAL STATUS EXAMINATION General Appearance: Dressed appropriately, Age appropriate, wearing appropriate clothes, cooperative, polite with questioning, good eye contact Behavior: anxious, depressed Mood: "OK" Affect and affective range: congruent with stated mood Thought Process: goal directed Speech: normal rate and volume Thought Content:suicidal/hallucinations Suicidal Ideation: Denies Homicidal Ideation: Denies HI Hallucinations: Auditory Delusions: none elicited Insight and Judgment: Limited Memory/Cognition: Limited Attention: Normal ASSESSMENT Bipolar Disorder, Current Episode Depressed Treatment Plan: Patient admitted for inpatient psychiatric evaluation, medication adjustment and close monitoring The patient's behavior, mood, sleep and appetite will be closely monitored. Patient enrolled in individual and group therapeutic sessions and encouraged to attend. Patient provided with a safe and structured environment. Patient's physical health needs will be addressed by the Hospitalist. Hospitalist Consulted Labs including CBC, CMP, Lipid profile and Hemoglobin A1C levels ordered for baseline reference Social Assessment will be completed and the Bumper Operator will work with patient and family to ensure a suitable and safe disposition Medication adjustment will be made as clinically indicated Continue Olanzapine 10mg po daily Start Melatonin 5mg po QHS PRN . Continue Remeron 15mg po QHS Usual Wellness Latter-Day/Preservation: - Start Trazodone 50 mg po QHS & 50 mg po QHS PRN between 10 PM & 2 AM for insomnia - Start Melatonin 5 mg po QHS to promote circadian rhythm The patient agreed on the treatment plan, understood the risk, benefit, alternative treatment, potential consequence of no treatment, and gave informed consent. Estimated days: [address] Dawkins Medications and Allergies Medications and Allergies Allergies Allergy/AdvReac Type Severity Reaction Status Date / Time ibuprofen Allergy Itching Verified 01/21/22 02:54 ketorolac tromethamine Allergy Rash Verified 01/21/22 02:54 [From Toradol] ketorolac [From Toradol] AdvReac Itching Verified 01/21/22 02:54 tramadol AdvReac Itching Verified 01/21/22 02:54 Home Medications Medication Instructions Recorded Confirmed Last Taken Type Gabapentin [Neurontin] 800 mg PO QID 04/23/18 04/15/22 06/27/20 History 1200 Gabapentin [Neurontin] 800 mg PO Q6H 05/04/20 04/15/22 2 Days Ago History ~06/25/20 Oxycodone HCl/Acetaminophen 10 mg PO Q6HR PRN 05/04/20 04/15/22 2 Days Ago History [Percocet 10/325 mg] ~06/25/20 oxyCODONE /ACETAMINOPHEN [Percocet 10 - 325 mg PO QID PRN 06/27/20 04/15/22 06/27/20 History 5/325 mg] 1300 traZODone [Desyrel] 100 mg PO QHS 06/27/20 04/15/22 2 Days Ago History ~06/25/20 Carisoprodol [Soma] 350 mg PO DAILY 07/26/20 04/15/22 2 Weeks Ago History ~07/12/[address] [DepaKOTE DR] 125 mg PO BID 30 Days #60 tablet 07/12/21 04/15/22 Unknown Rx hydrOXYzine PAMOATE [Vistaril] 25 mg PO BID 30 Days #60 capsule 07/12/21 04/15/22 Unknown Rx traZODone [Desyrel] 50 mg PO QHS 30 Days #30 tab 07/12/21 04/15/22 Unknown Rx Active Meds: Active Medications Acetaminophen (Acetaminophen 325 Mg Tab) 650 mg PO Q4H PRN PRN Reason: Pain, Mild (1-3) Last Admin: 04/18/22 13:55 Dose: 650 mg Acetaminophen (Acetaminophen 325 Mg Tab) 325 mg PO Q8HR PRN PRN Reason: Pain , Severe (7-10) Last Admin: 04/20/22 06:19 Dose: 325 mg Carisoprodol (Carisoprodol 350 Mg Tab) 350 mg PO DAILY [facility] Last Admin: 04/19/22 09:00 Dose: 350 mg Fluoxetine HCl (Fluoxetine 20 Mg Cap) 20 mg PO QDAY [facility] Last Admin: 04/19/22 09:00 Dose: 20 mg Gabapentin (Gabapentin 400 Mg Cap) 800 mg PO QID [facility] Last Admin: 04/19/22 21:37 Dose: 800 mg Mirtazapine (Mirtazapine 15 Mg Tab) 15 mg PO QHS [facility] Last Admin: 04/19/22 21:38 Dose: 15 mg Olanzapine (Olanzapine 10 Mg Tab) 10 mg PO QDAY [facility] Oxycodone HCl (Oxycodone 5 Mg Tab) 10 mg PO Q8HR PRN PRN Reason: Pain , Severe (7-10) Last Admin: 04/20/22 06:17 Dose: 10 mg Results - Results Labs/Vitals: Laboratory Last Values WBC 6.4 K/mm3 (4.5-11.0) 04/16/22 05:30 RBC 4.92 M/mm3 (3.65-5.03) 04/16/22 05:30 Hgb 10.4 gm/dl (10.1-14.3) 04/16/22 05:30 Hct 34.2 % (30.3-42.9) 04/16/22 05:30 MCV 70 fl (79-97) L 04/16/22 05:30 MCH 21 pg (28-32) L 04/16/22 05:30 MCHC 31 % (30-34) 04/16/22 05:30 RDW 18.3 % (13.2-15.2) H 04/16/22 05:30 Plt Count 386 K/mm3 (140-440) 04/16/22 05:30 Add Manual Diff Complete 04/16/22 05:30 Total Counted 100 04/16/22 05:30 Seg Neuts % (Manual) 61.0 % (40.0-70.0) 04/16/22 05:30 Band Neutrophils % 0 % 04/16/22 05:30 Lymphocytes % (Manual) 32.0 % (13.4-35.0) 04/16/22 05:30 Reactive Lymphs % (Man) 1.0 % 04/16/22 05:30 Monocytes % (Manual) 1.0 % (0.0-7.3) 04/16/22 05:30 Eosinophils % (Manual) 5.0 % (0.0-4.3) H 04/16/22 05:30 Basophils % (Manual) 0 % (0.0-1.8) 04/16/22 05:30 Metamyelocytes % 0 % 04/16/22 05:30 Myelocytes % 0 % 04/16/22 05:30 Promyelocytes % 0 % 04/16/22 05:30 Blast Cells % 0 % 04/16/22 05:30 Nucleated RBC % Not Reportable 04/16/22 05:30 Seg Neutrophils # Man 3.9 K/mm3 (1.8-7.7) 04/16/22 05:30 Band Neutrophils # 0.0 K/mm3 04/16/22 05:30 Lymphocytes # (Manual) 2.0 K/mm3 (1.2-5.4) 04/16/22 05:30 Abs React Lymphs (Man) 0.1 K/mm3 04/16/22 05:30 Monocytes # (Manual) 0.1 K/mm3 (0.0-0.8) 04/16/22 05:30 Eosinophils # (Manual) 0.3 K/mm3 (0.0-0.4) 04/16/22 05:30 Basophils # (Manual) 0.0 K/mm3 (0.0-0.1) 04/16/22 05:30 Metamyelocytes # 0.0 K/mm3 04/16/22 05:30 Myelocytes # 0.0 K/mm3 04/16/22 05:30 Promyelocytes # 0.0 K/mm3 04/16/22 05:30 Blast Cells # 0.0 K/mm3 04/16/22 05:30 WBC Morphology Not Reportable 04/16/22 05:30 Hypersegmented Neuts Not Reportable 04/16/22 05:30 Hyposegmented Neuts Not Reportable 04/16/22 05:30 Hypogranular Neuts Not Reportable 04/16/22 05:30 Smudge Cells Not Reportable 04/16/22 05:30 Toxic Granulation Not Reportable 04/16/22 05:30 Toxic Vacuolation Not Reportable 04/16/22 05:30 Dohle Bodies Not Reportable 04/16/22 05:30 Pelger-Huet Anomaly Not Reportable 04/16/22 05:30 Gage Rods Not Reportable 04/16/22 05:30 Platelet Estimate Consistent w auto 04/16/22 05:30 Clumped Platelets Not Reportable 04/16/22 05:30 Plt Clumps, EDTA Not Reportable 04/16/22 05:30 Large Platelets Rare 04/16/22 05:30 Giant Platelets Not Reportable 04/16/22 05:30 Platelet Satelliting Not Reportable 04/16/22 05:30 Plt Morphology Comment Not Reportable 04/16/22 05:30 RBC Morphology Not Reportable 04/16/22 05:30 Dimorphic RBCs Not Reportable 04/16/22 05:30 Polychromasia Not Reportable 04/16/22 05:30 Hypochromasia 2+ 04/16/22 05:30 Poikilocytosis 1+ 04/16/22 05:30 Anisocytosis 1+ 04/16/22 05:30 Microcytosis 1+ 04/16/22 05:30 Macrocytosis Not Reportable 04/16/22 05:30 Spherocytes Rare 04/16/22 05:30 Pappenheimer Bodies Not Reportable 04/16/22 05:30 Sickle Cells Not Reportable 04/16/22 05:30 Target Cells Rare 04/16/22 05:30 Tear Drop Cells Rare 04/16/22 05:30 Ovalocytes Few 04/16/22 05:30 Helmet Cells Not Reportable 04/16/22 05:30 [place] Bodies Not Reportable 04/16/22 05:30 [place] Rings Not Reportable 04/16/22 05:30 [place] Cells Not Reportable 04/16/22 05:30 Bite Cells Not Reportable 04/16/22 05:30 Crenated Cell Not Reportable 04/16/22 05:30 Elliptocytes Rare 04/16/22 05:30 Acanthocytes (Spur) Not Reportable 04/16/22 05:30 Rouleaux Not Reportable 04/16/22 05:30 Hemoglobin C Crystals Not Reportable 04/16/22 05:30 Schistocytes Not Reportable 04/16/22 05:30 Malaria parasites Not Reportable 04/16/22 05:30 Faustino Bodies Not Reportable 04/16/22 05:30 Hem Pathologist Commnt No 04/16/22 05:30 Sodium 141 mmol/L (137-145) 04/16/22 05:30 Potassium 4.3 mmol/L (3.6-5.0) 04/16/22 05:30 Chloride 105.1 mmol/L (98-107) 04/16/22 05:30 Carbon Dioxide 23 mmol/L (22-30) 04/16/22 05:30 Anion Gap 17 mmol/L 04/16/22 05:30 BUN 10 mg/dL (7-17) 04/16/22 05:30 Creatinine 0.7 mg/dL (0.6-1.2) 04/16/22 05:30 Estimated GFR > 60 ml/min 04/16/22 05:30 BUN/Creatinine Ratio 14 % 04/16/22 05:30 Glucose 146 mg/dL (65-100) H 04/16/22 05:30 POC Glucose 106 mg/dL (70-105) H 04/15/22 16:53 Hemoglobin A1c 8.5 % (4-6) H 04/16/22 05:30 Calcium 9.2 mg/dL (8.4-10.2) 04/16/22 05:30 Total Bilirubin 0.20 mg/dL (0.1-1.2) 04/16/22 05:30 AST 14 units/L (5-40) 04/16/22 05:30 ALT 8 units/L (7-56) 04/16/22 05:30 Alkaline Phosphatase 125 units/L (35-129) 04/16/22 05:30 Total Protein 7.2 g/dL (6.3-8.2) 04/16/22 05:30 Albumin 3.7 g/dL (3.9-5) L 04/16/22 05:30 Albumin/Globulin Ratio 1.1 % 04/16/22 05:30 Triglycerides 102 mg/dL (2-149) 04/16/22 05:30 Cholesterol 190 mg/dL (50-199) 04/16/22 05:30 LDL Cholesterol Direct 124 mg/dL (50-130) 04/16/22 05:30 HDL Cholesterol 48 mg/dL (40-59) 04/16/22 05:30 Cholesterol/HDL Ratio 3.95 % 04/16/22 05:30 TSH 0.363 mlU/mL (0.270-4.200) 04/16/22 05:30 Urine Color Straw (Yellow) 04/16/22 Unknown Urine Turbidity Clear (Clear) 04/16/22 Unknown Urine pH 6.0 (5.0-7.0) 04/16/22 Unknown Ur Specific [place] 1.008 (1.003-1.030) 04/16/22 Unknown Urine Protein <15 mg/dl mg/dL (Negative) 04/16/22 Unknown Urine Glucose (UA) Neg mg/dL (Negative) 04/16/22 Unknown Urine Ketones Neg mg/dL (Negative) 04/16/22 Unknown Urine Blood Neg (Negative) 04/16/22 Unknown Urine Nitrite Neg (Negative) 04/16/22 Unknown Urine Bilirubin Neg (Negative) 04/16/22 Unknown Urine Urobilinogen < 2.0 mg/dL (<2.0) 04/16/22 Unknown Ur Leukocyte Esterase Neg (Negative) 04/16/22 Unknown Urine WBC (Auto) 6.0 /HPF (0.0-6.0) 04/16/22 Unknown Urine RBC (Auto) < 1.0 /HPF (0.0-6.0) 04/16/22 Unknown U Epithel Cells (Auto) 6.0 /HPF (0-13.0) 04/16/22 Unknown Last Vital Signs Temp 98.2 F 04/19/22 19:29 Pulse 100 H 04/19/22 19:29 Resp 20 04/19/22 19:29 BP 121/84 04/19/22 19:29 Pulse Ox 100 04/19/22 19:29
[2022-04-20] MEDS: CARISOPRODOL 350 MG TAB PO SCH (09:09)
[2022-04-20] MEDS: GABAPENTIN 400 MG CAP PO SCH ×4 (09:09→21:11)
[2022-04-20] MEDS: FLUoxetine 20 MG CAP PO SCH (09:09)
[2022-04-20] MEDS: MIRTAZAPINE 15 MG TAB PO SCH (21:11)
[2022-04-20] MEDS: MELATONIN 5 MG TAB PO PRN (23:32)
[2022-04-21] MEDS: ACETAMINOPHEN 325 MG TAB PO PRN ×4 (05:08→20:40)
[2022-04-21] MEDS: oxyCODONE 5 MG TAB PO PRN ×3 (05:08→20:41)
[2022-04-21] MEDS: MAGNESIUM HYDROXIDE (MOM) ORAL LIQD UDC PO PRN ×2 (05:10→23:56)
[2022-04-21] MEDS: CARISOPRODOL 350 MG TAB PO SCH ×2 (08:51→10:12)
[2022-04-21] MEDS: FLUoxetine 20 MG CAP PO SCH ×2 (08:51→10:12)
[2022-04-21] MEDS: GABAPENTIN 400 MG CAP PO SCH ×5 (08:53→21:02)
--- NOTE | 2022-04-21 09:03 | Progress Note ---
Subjective Date of service: 04/21/22 Principal diagnosis: SI/Depression Subjective Comment: 04/21:The patient was seen this morning. She states she is doing well, rates depression as 3/10. She denies suicidal/homicidal ideation and denies hallucinations. 04/20:The patient was seen this morning. She reports feeling better, rates depression as 2/10. She continues to complain of difficulty with maintaining sleep. She denies suicidal/homicidal ideation and denies hallucinations. Start Melatonin 5mg po QHS PRN . 04/19: The patient was seen this morning. She continues to endorse depression, rates as 8/10 with suicidal ideation. She reports having auditory hallucinations " voices telling me they will kill my son." She denies visual hallucinations. 04/18: The patient was seen this morning. She reports having difficulty with maintaining sleep, and also reports having poor appetite. She continues to endorse depression with suicidal ideation however, she has no plan. She also admits to having AVHs " I see my niece and my mother telling me they will take my daughter." 04/17:The patient was seen today. She says she did not sleep well and states she was taking ambien. The patient is also asking if she could have her percocet in one pill instead of three times a day. She says the medication she's on has her mood all over the place. The patient still endorses SI without a plan. She also says she hears voices of her parents and sees them. REVIEW OF SYSTEMS Constitutional: Negative for weight loss ENT: Negative for stridor Respiratory: Negative for cough or hemoptysis All other systems reviewed and are negative MENTAL STATUS EXAMINATION General Appearance: Dressed appropriately, Age appropriate, wearing appropriate clothes, cooperative, polite with questioning, good eye contact Behavior: anxious, depressed Mood: "fine" Affect and affective range: congruent with stated mood Thought Process: goal directed Speech: normal rate and volume Thought Content:suicidal/hallucinations Suicidal Ideation: Denies Homicidal Ideation: Denies HI Hallucinations: Denies Delusions: none elicited Insight and Judgment: Limited Memory/Cognition: Limited Attention: Normal ASSESSMENT Bipolar Disorder, Current Episode Depressed Treatment Plan: Patient admitted for inpatient psychiatric evaluation, medication adjustment and close monitoring The patient's behavior, mood, sleep and appetite will be closely monitored. Patient enrolled in individual and group therapeutic sessions and encouraged to attend. Patient provided with a safe and structured environment. Patient's physical health needs will be addressed by the Hospitalist. Hospitalist Consulted Labs including CBC, CMP, Lipid profile and Hemoglobin A1C levels ordered for baseline reference Social Assessment will be completed and the Vp Director Of Creative Strategy will work with patient and family to ensure a suitable and safe disposition Medication adjustment will be made as clinically indicated Continue Olanzapine 10mg po daily Continues Melatonin 5mg po QHS PRN . Continue Remeron 15mg po QHS Usual Wellness Religious/Preservation: - Start Trazodone 50 mg po QHS & 50 mg po QHS PRN between 10 PM & 2 AM for insomnia - Start Melatonin 5 mg po QHS to promote circadian rhythm The patient agreed on the treatment plan, understood the risk, benefit, alternative treatment, potential consequence of no treatment, and gave informed consent. Estimated days: [address] Dawkins Medications and Allergies Medications and Allergies Allergies Allergy/AdvReac Type Severity Reaction Status Date / Time ibuprofen Allergy Itching Verified 01/21/22 02:54 ketorolac tromethamine Allergy Rash Verified 01/21/22 02:54 [From Toradol] ketorolac [From Toradol] AdvReac Itching Verified 01/21/22 02:54 tramadol AdvReac Itching Verified 01/21/22 02:54 Home Medications Medication Instructions Recorded Confirmed Last Taken Type Gabapentin [Neurontin] 800 mg PO QID 04/23/18 04/15/22 06/27/20 History 1200 Gabapentin [Neurontin] 800 mg PO Q6H 05/04/20 04/15/22 2 Days Ago History ~06/25/20 Oxycodone HCl/Acetaminophen 10 mg PO Q6HR PRN 05/04/20 04/15/22 2 Days Ago History [Percocet 10/325 mg] ~06/25/20 oxyCODONE /ACETAMINOPHEN [Percocet 10 - 325 mg PO QID PRN 06/27/20 04/15/22 06/27/20 History 5/325 mg] 1300 traZODone [Desyrel] 100 mg PO QHS 06/27/20 04/15/22 2 Days Ago History ~06/25/20 Carisoprodol [Soma] 350 mg PO DAILY 07/26/20 04/15/22 2 Weeks Ago History ~07/12/[address] [DepaKOTE DR] 125 mg PO BID 30 Days #60 tablet 07/12/21 04/15/22 Unknown Rx hydrOXYzine PAMOATE [Vistaril] 25 mg PO BID 30 Days #60 capsule 07/12/21 04/15/22 Unknown Rx traZODone [Desyrel] 50 mg PO QHS 30 Days #30 tab 07/12/21 04/15/22 Unknown Rx Active Meds: Active Medications Acetaminophen (Acetaminophen 325 Mg Tab) 650 mg PO Q4H PRN PRN Reason: Pain, Mild (1-3) Last Admin: 04/18/22 13:55 Dose: 650 mg Acetaminophen (Acetaminophen 325 Mg Tab) 325 mg PO Q8HR PRN PRN Reason: Pain , Severe (7-10) Last Admin: 04/21/22 05:08 Dose: 325 mg Carisoprodol (Carisoprodol 350 Mg Tab) 350 mg PO DAILY [facility] Last Admin: 04/21/22 08:51 Dose: 350 mg Fluoxetine HCl (Fluoxetine 20 Mg Cap) 20 mg PO QDAY [facility] Last Admin: 04/21/22 08:51 Dose: 20 mg Gabapentin (Gabapentin 400 Mg Cap) 800 mg PO QID [facility] Last Admin: 04/21/22 08:53 Dose: 800 mg Magnesium Hydroxide (Magnesium Hydroxide (Mom) Oral Liqd Udc) 30 ml PO QDAY PRN PRN Reason: Constipation Last Admin: 04/21/22 05:10 Dose: 30 ml Melatonin (Melatonin 5 Mg Tab) 5 mg PO QHS PRN PRN Reason: Sleep Last Admin: 04/20/22 23:32 Dose: 5 mg Mirtazapine (Mirtazapine 15 Mg Tab) 15 mg PO QHS [facility] Last Admin: 04/20/22 21:11 Dose: 15 mg Olanzapine (Olanzapine 10 Mg Tab) 10 mg PO QDAY [facility] Last Admin: 04/21/22 08:53 Dose: 10 mg Oxycodone HCl (Oxycodone 5 Mg Tab) 10 mg PO Q8HR PRN PRN Reason: Pain , Severe (7-10) Last Admin: 04/21/22 05:08 Dose: 10 mg Results - Results Labs/Vitals: Laboratory Last Values WBC 6.4 K/mm3 (4.5-11.0) 04/16/22 05:30 RBC 4.92 M/mm3 (3.65-5.03) 04/16/22 05:30 Hgb 10.4 gm/dl (10.1-14.3) 04/16/22 05:30 Hct 34.2 % (30.3-42.9) 04/16/22 05:30 MCV 70 fl (79-97) L 04/16/22 05:30 MCH 21 pg (28-32) L 04/16/22 05:30 MCHC 31 % (30-34) 04/16/22 05:30 RDW 18.3 % (13.2-15.2) H 04/16/22 05:30 Plt Count 386 K/mm3 (140-440) 04/16/22 05:30 Add Manual Diff Complete 04/16/22 05:30 Total Counted 100 04/16/22 05:30 Seg Neuts % (Manual) 61.0 % (40.0-70.0) 04/16/22 05:30 Band Neutrophils % 0 % 04/16/22 05:30 Lymphocytes % (Manual) 32.0 % (13.4-35.0) 04/16/22 05:30 Reactive Lymphs % (Man) 1.0 % 04/16/22 05:30 Monocytes % (Manual) 1.0 % (0.0-7.3) 04/16/22 05:30 Eosinophils % (Manual) 5.0 % (0.0-4.3) H 04/16/22 05:30 Basophils % (Manual) 0 % (0.0-1.8) 04/16/22 05:30 Metamyelocytes % 0 % 04/16/22 05:30 Myelocytes % 0 % 04/16/22 05:30 Promyelocytes % 0 % 04/16/22 05:30 Blast Cells % 0 % 04/16/22 05:30 Nucleated RBC % Not Reportable 04/16/22 05:30 Seg Neutrophils # Man 3.9 K/mm3 (1.8-7.7) 04/16/22 05:30 Band Neutrophils # 0.0 K/mm3 04/16/22 05:30 Lymphocytes # (Manual) 2.0 K/mm3 (1.2-5.4) 04/16/22 05:30 Abs React Lymphs (Man) 0.1 K/mm3 04/16/22 05:30 Monocytes # (Manual) 0.1 K/mm3 (0.0-0.8) 04/16/22 05:30 Eosinophils # (Manual) 0.3 K/mm3 (0.0-0.4) 04/16/22 05:30 Basophils # (Manual) 0.0 K/mm3 (0.0-0.1) 04/16/22 05:30 Metamyelocytes # 0.0 K/mm3 04/16/22 05:30 Myelocytes # 0.0 K/mm3 04/16/22 05:30 Promyelocytes # 0.0 K/mm3 04/16/22 05:30 Blast Cells # 0.0 K/mm3 04/16/22 05:30 WBC Morphology Not Reportable 04/16/22 05:30 Hypersegmented Neuts Not Reportable 04/16/22 05:30 Hyposegmented Neuts Not Reportable 04/16/22 05:30 Hypogranular Neuts Not Reportable 04/16/22 05:30 Smudge Cells Not Reportable 04/16/22 05:30 Toxic Granulation Not Reportable 04/16/22 05:30 Toxic Vacuolation Not Reportable 04/16/22 05:30 Dohle Bodies Not Reportable 04/16/22 05:30 Pelger-Huet Anomaly Not Reportable 04/16/22 05:30 Gage Rods Not Reportable 04/16/22 05:30 Platelet Estimate Consistent w auto 04/16/22 05:30 Clumped Platelets Not Reportable 04/16/22 05:30 Plt Clumps, EDTA Not Reportable 04/16/22 05:30 Large Platelets Rare 04/16/22 05:30 Giant Platelets Not Reportable 04/16/22 05:30 Platelet Satelliting Not Reportable 04/16/22 05:30 Plt Morphology Comment Not Reportable 04/16/22 05:30 RBC Morphology Not Reportable 04/16/22 05:30 Dimorphic RBCs Not Reportable 04/16/22 05:30 Polychromasia Not Reportable 04/16/22 05:30 Hypochromasia 2+ 04/16/22 05:30 Poikilocytosis 1+ 04/16/22 05:30 Anisocytosis 1+ 04/16/22 05:30 Microcytosis 1+ 04/16/22 05:30 Macrocytosis Not Reportable 04/16/22 05:30 Spherocytes Rare 04/16/22 05:30 Pappenheimer Bodies Not Reportable 04/16/22 05:30 Sickle Cells Not Reportable 04/16/22 05:30 Target Cells Rare 04/16/22 05:30 Tear Drop Cells Rare 04/16/22 05:30 Ovalocytes Few 04/16/22 05:30 Helmet Cells Not Reportable 04/16/22 05:30 Campbell-Alda Bodies Not Reportable 04/16/22 05:30 [place] Rings Not Reportable 04/16/22 05:30 Roni Cells Not Reportable 04/16/22 05:30 Bite Cells Not Reportable 04/16/22 05:30 Crenated Cell Not Reportable 04/16/22 05:30 Elliptocytes Rare 04/16/22 05:30 Acanthocytes (Spur) Not Reportable 04/16/22 05:30 Rouleaux Not Reportable 04/16/22 05:30 Hemoglobin C Crystals Not Reportable 04/16/22 05:30 Schistocytes Not Reportable 04/16/22 05:30 Malaria parasites Not Reportable 04/16/22 05:30 Faustino Bodies Not Reportable 04/16/22 05:30 Hem Pathologist Commnt No 04/16/22 05:30 Sodium 141 mmol/L (137-145) 04/16/22 05:30 Potassium 4.3 mmol/L (3.6-5.0) 04/16/22 05:30 Chloride 105.1 mmol/L (98-107) 04/16/22 05:30 Carbon Dioxide 23 mmol/L (22-30) 04/16/22 05:30 Anion Gap 17 mmol/L 04/16/22 05:30 BUN 10 mg/dL (7-17) 04/16/22 05:30 Creatinine 0.7 mg/dL (0.6-1.2) 04/16/22 05:30 Estimated GFR > 60 ml/min 04/16/22 05:30 BUN/Creatinine Ratio 14 % 04/16/22 05:30 Glucose 146 mg/dL (65-100) H 04/16/22 05:30 POC Glucose 143 mg/dL (70-105) H 04/20/22 19:46 Hemoglobin A1c 8.5 % (4-6) H 04/16/22 05:30 Calcium 9.2 mg/dL (8.4-10.2) 04/16/22 05:30 Total Bilirubin 0.20 mg/dL (0.1-1.2) 04/16/22 05:30 AST 14 units/L (5-40) 04/16/22 05:30 ALT 8 units/L (7-56) 04/16/22 05:30 Alkaline Phosphatase 125 units/L (35-129) 04/16/22 05:30 Total Protein 7.2 g/dL (6.3-8.2) 04/16/22 05:30 Albumin 3.7 g/dL (3.9-5) L 04/16/22 05:30 Albumin/Globulin Ratio 1.1 % 04/16/22 05:30 Triglycerides 102 mg/dL (2-149) 04/16/22 05:30 Cholesterol 190 mg/dL (50-199) 04/16/22 05:30 LDL Cholesterol Direct 124 mg/dL (50-130) 04/16/22 05:30 HDL Cholesterol 48 mg/dL (40-59) 04/16/22 05:30 Cholesterol/HDL Ratio 3.95 % 04/16/22 05:30 TSH 0.363 mlU/mL (0.270-4.200) 04/16/22 05:30 Urine Color Straw (Yellow) 04/16/22 Unknown Urine Turbidity Clear (Clear) 04/16/22 Unknown Urine pH 6.0 (5.0-7.0) 04/16/22 Unknown Ur Specific [place] 1.008 (1.003-1.030) 04/16/22 Unknown Urine Protein <15 mg/dl mg/dL (Negative) 04/16/22 Unknown Urine Glucose (UA) Neg mg/dL (Negative) 04/16/22 Unknown Urine Ketones Neg mg/dL (Negative) 04/16/22 Unknown Urine Blood Neg (Negative) 04/16/22 Unknown Urine Nitrite Neg (Negative) 04/16/22 Unknown Urine Bilirubin Neg (Negative) 04/16/22 Unknown Urine Urobilinogen < 2.0 mg/dL (<2.0) 04/16/22 Unknown Ur Leukocyte Esterase Neg (Negative) 04/16/22 Unknown Urine WBC (Auto) 6.0 /HPF (0.0-6.0) 04/16/22 Unknown Urine RBC (Auto) < 1.0 /HPF (0.0-6.0) 04/16/22 Unknown U Epithel Cells (Auto) 6.0 /HPF (0-13.0) 04/16/22 Unknown Last Vital Signs Temp 97.8 F 04/20/22 19:12 Pulse 72 04/20/22 19:12 Resp 18 04/20/22 19:12 BP 147/88 04/20/22 19:12 Pulse Ox 99 04/20/22 19:12
[2022-04-21] MEDS: MELATONIN 5 MG TAB PO PRN (20:42)
[2022-04-21] MEDS: MIRTAZAPINE 15 MG TAB PO SCH (21:04)
[2022-04-22] MEDS: oxyCODONE 5 MG TAB PO PRN (05:03)
[2022-04-22] MEDS: ACETAMINOPHEN 325 MG TAB PO PRN (05:04)
--- NOTE | 2022-04-22 08:57 | Discharge Summary ---
Providers - Providers Date of Admission: 04/15/22 14:31 Date of discharge: 04/22/22 Attending physician: DIMA MONSALVE MD 04/15/22 12:21 Consult to Physician [CONS] Routine Comment: Consulting Provider: EVE GARCIA Physician Instructions: Reason For Exam: manage medical conditions Primary care physician: MEDICAL EDUCATION COORDINATOR Hospitalization Reason for admission: suicidal ideation Admitting Diagnosis: F31.32 - BIPOLAR DISORDER, CURRENT EPISODE DEPRESSED, MODERATE Condition: Stable Hospital course: The patient was provided inpatient psychiatric treatment with safe and supportive environment, group/individual therapy, psychiatric medication, medication adjustment, adverse effect monitor, medical evaluation, medical treatment, social service assessment, social support meeting, placement assessment and psycho-education. The patients mood, cognition, behavior, motivation, compliance to treatment and appreciation on family/social support are improved and stabilized. At the time of discharge, the patient had no suicidal ideas, no homicidal ideas, no aggressive thoughts, no endangering behavior and no debilitating adverse effects. The patient agreed on the treatment plan, understood the risk, benefit, alternative treatment, potential consequence of no treatment, and gave informed consent. Progress Note: 04/21:The patient was seen this morning. She states she is doing well, rates depression as 3/10. She denies suicidal/homicidal ideation and denies hallucinations. 04/20:The patient was seen this morning. She reports feeling better, rates depression as 2/10. She continues to complain of difficulty with maintaining sleep. She denies suicidal/homicidal ideation and denies hallucinations. Start Melatonin 5mg po QHS PRN . 04/19: The patient was seen this morning. She continues to endorse depression, rates as 8/10 with suicidal ideation. She reports having auditory hallucinations " voices telling me they will kill my son." She denies visual hallucinations. 04/18: The patient was seen this morning. She reports having difficulty with maintaining sleep, and also reports having poor appetite. She continues to endorse depression with suicidal ideation however, she has no plan. She also admits to having AVHs " I see my niece and my mother telling me they will take my daughter." 04/17:The patient was seen today. She says she did not sleep well and states she was taking ambien. The patient is also asking if she could have her percocet in one pill instead of three times a day. She says the medication she's on has her mood all over the place. The patient still endorses SI without a plan. She also says she hears voices of her parents and sees them. Disposition: 01 HOME / SELF CARE / HOMELESS Allergies/Adverse Reactions: Allergies ibuprofen Allergy (Verified 01/21/22 02:54) Itching ketorolac tromethamine [From Toradol] Allergy (Verified 01/21/22 02:54) Rash ketorolac [From Toradol] Adverse Reaction (Verified 01/21/22 02:54) Itching tramadol Adverse Reaction (Verified 01/21/22 02:54) Itching Vital Signs: Last Vital Signs Temp 97.1 F L 04/21/22 20:55 Pulse 68 04/21/22 20:55 Resp 18 04/22/22 05:04 BP 135/89 04/21/22 20:55 Pulse Ox 100 04/21/22 20:55 Last Lab: Laboratory Last Values WBC 6.4 K/mm3 (4.5-11.0) 04/16/22 05:30 RBC 4.92 M/mm3 (3.65-5.03) 04/16/22 05:30 Hgb 10.4 gm/dl (10.1-14.3) 04/16/22 05:30 Hct 34.2 % (30.3-42.9) 04/16/22 05:30 MCV 70 fl (79-97) L 04/16/22 05:30 MCH 21 pg (28-32) L 04/16/22 05:30 MCHC 31 % (30-34) 04/16/22 05:30 RDW 18.3 % (13.2-15.2) H 04/16/22 05:30 Plt Count 386 K/mm3 (140-440) 04/16/22 05:30 Add Manual Diff Complete 04/16/22 05:30 Total Counted 100 04/16/22 05:30 Seg Neuts % (Manual) 61.0 % (40.0-70.0) 04/16/22 05:30 Band Neutrophils % 0 % 04/16/22 05:30 Lymphocytes % (Manual) 32.0 % (13.4-35.0) 04/16/22 05:30 Reactive Lymphs % (Man) 1.0 % 04/16/22 05:30 Monocytes % (Manual) 1.0 % (0.0-7.3) 04/16/22 05:30 Eosinophils % (Manual) 5.0 % (0.0-4.3) H 04/16/22 05:30 Basophils % (Manual) 0 % (0.0-1.8) 04/16/22 05:30 Metamyelocytes % 0 % 04/16/22 05:30 Myelocytes % 0 % 04/16/22 05:30 Promyelocytes % 0 % 04/16/22 05:30 Blast Cells % 0 % 04/16/22 05:30 Nucleated RBC % Not Reportable 04/16/22 05:30 Seg Neutrophils # Man 3.9 K/mm3 (1.8-7.7) 04/16/22 05:30 Band Neutrophils # 0.0 K/mm3 04/16/22 05:30 Lymphocytes # (Manual) 2.0 K/mm3 (1.2-5.4) 04/16/22 05:30 Abs React Lymphs (Man) 0.1 K/mm3 04/16/22 05:30 Monocytes # (Manual) 0.1 K/mm3 (0.0-0.8) 04/16/22 05:30 Eosinophils # (Manual) 0.3 K/mm3 (0.0-0.4) 04/16/22 05:30 Basophils # (Manual) 0.0 K/mm3 (0.0-0.1) 04/16/22 05:30 Metamyelocytes # 0.0 K/mm3 04/16/22 05:30 Myelocytes # 0.0 K/mm3 04/16/22 05:30 Promyelocytes # 0.0 K/mm3 04/16/22 05:30 Blast Cells # 0.0 K/mm3 04/16/22 05:30 WBC Morphology Not Reportable 04/16/22 05:30 Hypersegmented Neuts Not Reportable 04/16/22 05:30 Hyposegmented Neuts Not Reportable 04/16/22 05:30 Hypogranular Neuts Not Reportable 04/16/22 05:30 Smudge Cells Not Reportable 04/16/22 05:30 Toxic Granulation Not Reportable 04/16/22 05:30 Toxic Vacuolation Not Reportable 04/16/22 05:30 Dohle Bodies Not Reportable 04/16/22 05:30 Pelger-Huet Anomaly Not Reportable 04/16/22 05:30 Gage Rods Not Reportable 04/16/22 05:30 Platelet Estimate Consistent w auto 04/16/22 05:30 Clumped Platelets Not Reportable 04/16/22 05:30 Plt Clumps, EDTA Not Reportable 04/16/22 05:30 Large Platelets Rare 04/16/22 05:30 Giant Platelets Not Reportable 04/16/22 05:30 Platelet Satelliting Not Reportable 04/16/22 05:30 Plt Morphology Comment Not Reportable 04/16/22 05:30 RBC Morphology Not Reportable 04/16/22 05:30 Dimorphic RBCs Not Reportable 04/16/22 05:30 Polychromasia Not Reportable 04/16/22 05:30 Hypochromasia 2+ 04/16/22 05:30 Poikilocytosis 1+ 04/16/22 05:30 Anisocytosis 1+ 04/16/22 05:30 Microcytosis 1+ 04/16/22 05:30 Macrocytosis Not Reportable 04/16/22 05:30 Spherocytes Rare 04/16/22 05:30 Pappenheimer Bodies Not Reportable 04/16/22 05:30 Sickle Cells Not Reportable 04/16/22 05:30 Target Cells Rare 04/16/22 05:30 Tear Drop Cells Rare 04/16/22 05:30 Ovalocytes Few 04/16/22 05:30 Helmet Cells Not Reportable 04/16/22 05:30 Campbell-Gilliam Bodies Not Reportable 04/16/22 05:30 [place] Rings Not Reportable 04/16/22 05:30 [place] Cells Not Reportable 04/16/22 05:30 Bite Cells Not Reportable 04/16/22 05:30 Crenated Cell Not Reportable 04/16/22 05:30 Elliptocytes Rare 04/16/22 05:30 Acanthocytes (Spur) Not Reportable 04/16/22 05:30 Rouleaux Not Reportable 04/16/22 05:30 Hemoglobin C Crystals Not Reportable 04/16/22 05:30 Schistocytes Not Reportable 04/16/22 05:30 Malaria parasites Not Reportable 04/16/22 05:30 Faustino Bodies Not Reportable 04/16/22 05:30 Hem Pathologist Commnt No 04/16/22 05:30 Sodium 141 mmol/L (137-145) 04/16/22 05:30 Potassium 4.3 mmol/L (3.6-5.0) 04/16/22 05:30 Chloride 105.1 mmol/L (98-107) 04/16/22 05:30 Carbon Dioxide 23 mmol/L (22-30) 04/16/22 05:30 Anion Gap 17 mmol/L 04/16/22 05:30 BUN 10 mg/dL (7-17) 04/16/22 05:30 Creatinine 0.7 mg/dL (0.6-1.2) 04/16/22 05:30 Estimated GFR > 60 ml/min 04/16/22 05:30 BUN/Creatinine Ratio 14 % 04/16/22 05:30 Glucose 146 mg/dL (65-100) H 04/16/22 05:30 POC Glucose 143 mg/dL (70-105) H 04/20/22 19:46 Hemoglobin A1c 8.5 % (4-6) H 04/16/22 05:30 Calcium 9.2 mg/dL (8.4-10.2) 04/16/22 05:30 Total Bilirubin 0.20 mg/dL (0.1-1.2) 04/16/22 05:30 AST 14 units/L (5-40) 04/16/22 05:30 ALT 8 units/L (7-56) 04/16/22 05:30 Alkaline Phosphatase 125 units/L (35-129) 04/16/22 05:30 Total Protein 7.2 g/dL (6.3-8.2) 04/16/22 05:30 Albumin 3.7 g/dL (3.9-5) L 04/16/22 05:30 Albumin/Globulin Ratio 1.1 % 04/16/22 05:30 Triglycerides 102 mg/dL (2-149) 04/16/22 05:30 Cholesterol 190 mg/dL (50-199) 04/16/22 05:30 LDL Cholesterol Direct 124 mg/dL (50-130) 04/16/22 05:30 HDL Cholesterol 48 mg/dL (40-59) 04/16/22 05:30 Cholesterol/HDL Ratio 3.95 % 04/16/22 05:30 TSH 0.363 mlU/mL (0.270-4.200) 04/16/22 05:30 Urine Color Straw (Yellow) 04/16/22 Unknown Urine Turbidity Clear (Clear) 04/16/22 Unknown Urine pH 6.0 (5.0-7.0) 04/16/22 Unknown Ur Specific [place] 1.008 (1.003-1.030) 04/16/22 Unknown Urine Protein <15 mg/dl mg/dL (Negative) 04/16/22 Unknown Urine Glucose (UA) Neg mg/dL (Negative) 04/16/22 Unknown Urine Ketones Neg mg/dL (Negative) 04/16/22 Unknown Urine Blood Neg (Negative) 04/16/22 Unknown Urine Nitrite Neg (Negative) 04/16/22 Unknown Urine Bilirubin Neg (Negative) 04/16/22 Unknown Urine Urobilinogen < 2.0 mg/dL (<2.0) 04/16/22 Unknown Ur Leukocyte Esterase Neg (Negative) 04/16/22 Unknown Urine WBC (Auto) 6.0 /HPF (0.0-6.0) 04/16/22 Unknown Urine RBC (Auto) < 1.0 /HPF (0.0-6.0) 04/16/22 Unknown U Epithel Cells (Auto) 6.0 /HPF (0-13.0) 04/16/22 Unknown Core Measure Documentation - Palliative Care Palliative Care/ Comfort Measures: Not Applicable - Core Measures Any of the following diagnoses?: none - VTE Discharge Requirements Deep Vein Thrombosis/Pulmonary Embolism Present on Admission: No Exam - Constitutional Vitals: Temp Pulse Resp BP Pulse Ox 97.1 F L 68 18 135/89 100 04/21/22 20:55 04/21/22 20:55 04/22/22 05:04 04/21/22 20:55 04/21/22 20:55 Plan Activity: advance as tolerated Weight Bearing Status: Weight Bear as Tolerated Care Plan Goals: Maintain good and stable mental health. Plan of Treatment: The patient should be compliant with medications, not to use drugs and not to drink alcohol.The patient understands that if suicidal ideas, homicidal ideas, or any endangering thoughts/behavior arise, they should immediately seek for emergent assistance including but not limited to crisis hot line and emergency room. Follow up with outpatient Psychiatrist and PCP within 7 - 14 days of discharge. Please discontinue Trazodone 150mg, the patient was started on Remeron 15mg po QHS. Follow up with: PRIMARY CARE,MD [Primary Care Provider] - 7 Days Prescriptions: traZODone [Desyrel] 100 mg PO QHS 30 Days #30 traZODone [Desyrel] 50 mg PO QHS 30 Days #30 tab Mirtazapine [Remeron 15mg TAB] 15 mg PO QHS 30 Days #[address] [Depakote Dr] 125 mg PO BID 30 Days #60 tablet Gabapentin [Neurontin] 800 mg PO TID 30 Days #90 FLUoxetine [PROzac] 20 mg PO QDAY 30 Days #30 capsule hydrOXYzine PAMOATE [Vistaril] 25 mg PO BID 30 Days #60 capsule OLANzapine [Zyprexa] 10 mg PO QDAY 30 Days #30 tablet
[2022-04-22] MEDS: FLUoxetine 20 MG CAP PO SCH (09:17)
[2022-04-22] MEDS: GABAPENTIN 400 MG CAP PO SCH ×2 (09:18→13:27)
[2022-04-22] MEDS: CARISOPRODOL 350 MG TAB PO SCH (09:19)
[2022-04-22 10:56] VITALS: BP 125/76
[2022-04-22] MEDS: MAGNESIUM HYDROXIDE (MOM) ORAL LIQD UDC PO PRN (12:17)
== END 2022-04-22 14:00 | disposition home or self-care (01) | DRG 885 ==
LOC: 3A 11:31 → UNDOADMIN 11:31 → 5A 14:31
PROVIDERS: ADMIT Psychiatry & Neurology Psychiatry; ATTEND Psychiatry & Neurology Psychiatry
DX: F31.32 Bipolar disorder, current episode depressed, moderate (principal); R45.851 Suicidal ideations; M19.90 Unspecified osteoarthritis, unspecified site; G89.29 Other chronic pain; F41.9 Anxiety disorder, unspecified
CPT/HCPCS: 36415; 80053; 80061; 81001; 82962; 83036; 84443; 85007; 85025; G0378

== ENCOUNTER 2022-07-22 04:01 | Emergency (ER) | payer MEDICARE ==
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
[2022-07-22 07:37] LABS: Basophils # (Auto) 0.1 K/mm3 (0.0-0.1); Basophils % (Auto) 2.1 % (0.0-1.8); Eosinophils # (Auto) 0.1 K/mm3 (0.0-0.4); Eosinophils % (Auto) 0.9 % (0.0-4.3); Hematocrit 31.8 % (30.3-42.9); Hemoglobin 9.8 gm/dl (10.1-14.3); Lymphocytes # (Auto) 1.5 K/mm3 (1.2-5.4); Lymphocytes % (Auto) 21.8 % (13.4-35.0); Mean Corpuscular HGB Conc 31 % (30-34); Monocytes # (Auto) 0.4 K/mm3 (0.0-0.8); Monocytes % (Auto) 5.7 % (0.0-7.3); Platelet Count 353 K/mm3 (140-440); Red Blood Count 4.66 M/mm3 (3.65-5.03)
--- NOTE | 2022-07-22 07:46 | Cat Scan Report ---
CT HEAD WITHOUT CONTRAST INDICATION / CLINICAL INFORMATION: fall, right face pain, right droop hx of cva. TECHNIQUE: Axial imaging performed from the skull apex through the skull base without the use of cont rast. Sagittal and coronal reformatted images. All CT scans at this location are performed using CT dose reduction for ALARA by means of automated exposure control. COMPARISON: None available. FINDINGS: CEREBRAL PARENCHYMA: No significant abnormality. No acute territorial infarct. HEMORRHAGE: None. EXTRA-AXIAL SPACES: Normal in size and morphology for the patient's age. VENTRICULAR SYSTEM: Normal in size and morphology for the patient's age. MIDLINE SHIFT OR HERNIATION: None. CEREBELLUM / BRAINSTEM: No significant abnormality. CALVARIUM: No significant abnormality. ORBITS: Normal as visualized. PARANASAL SINUSES / MASTOID AIR CELLS: Normal as visualized. SOFT TISSUES of HEAD: No significant abnormality. ADDITIONAL FINDINGS: None. IMPRESSION: No acute intracranial abnormality. Signer Name: Augusto Mena Jr, MD Signed: 07/22/2022 7:41 AM Workstation Name: [id number]
[2022-07-22 07:48] LABS: Mean Corpuscular Volume 68 fl (79-97)
--- NOTE | 2022-07-22 07:55 | Cat Scan Report ---
CT FACIAL BONES WITHOUT CONTRAST INDICATION : right face pain after fall. TECHNIQUE: Axial imaging performed through the face with reconstructed images also reviewed. Sagitta l and coronal reformatted images. All CT scans at this location are performed using CT dose reduction for ALARA by means of automated exposure control. COMPARISON: CT head performed the same day FINDINGS: The mandible, zygomas, orbital cavities, paranasal sinuses and nasal bones are intact. No facial fracture is detected. There is anterior subluxation of both TMJs. Poor dentition. Skull base i s intact. Anterior cervical fusion changes are noted in the lower cervical spine. No acute injury is detected. Facial soft tissues are unremarkable. IMPRESSION: No acute abnormality. Signer Name: Augusto Mena Jr, MD Signed: 07/22/2022 7:51 AM Workstation Name: [id number]
--- NOTE | 2022-07-22 08:20 | XRay Report ---
RIGHT RIBS 4 VIEWS INDICATION: right rib pain after fall. COMPARISON: 04/14/2021 IMPRESSION: No acute rib fracture is detected. No change since 04/14/2021. The right lung is well-ae rated. Signer Name: Augusto Mena Jr, MD Signed: 07/22/2022 8:15 AM Workstation Name: [id number]
[2022-07-22 08:38] LABS: BUN/Creatinine Ratio 11; Blood Urea Nitrogen 9 mg/dL (7-17); Calcium 9.5 mg/dL (8.4-10.2); Hemolysis Index 5
[2022-07-22] MEDS: GABAPENTIN 400 MG CAP PO ONE (09:01)
[2022-07-22] MEDS: CLOPIDOGREL 75 MG TAB PO ONE (09:57)
[2022-07-22] MEDS: ASPIRIN 81 MG TAB CHEW PO ONE (09:57)
[2022-07-22 10:03] VITALS: BP 163/83
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
[2022-07-22] MEDS: DIVALPROEX DR 125 MG TAB PO SCH (12:46)
[2022-07-22] MEDS: FLUoxetine 20 MG CAP PO SCH (12:46)
[2022-07-22] MEDS: oxyCODONE /ACETAMINOPHEN 5-325MG TAB PO ONE (12:47)
[2022-07-22] MEDS: GABAPENTIN 500 MG/10 ML ORAL LIQD PO SCH (14:55)
[2022-07-22] MEDS ORDERED: ETOMIDATE 20 MG/10 ML INJ IV ONE (15:44)
[2022-07-22] MEDS ORDERED: SUCCINYLCHOLINE CHLORIDE 200 MG/10 ML INJ MDV ONE (15:44)
[2022-07-22] MEDS ORDERED: LORazepam 2 MG/ML VIAL ONE (15:45)
[2022-07-22] MEDS ORDERED: traZODone 50 MG TAB PO SCH (22:00)
== END 2022-07-22 17:40 ==
LOC: ED 04:01
DX: S20.219A Contusion of unspecified front wall of thorax, initial encounter (principal); R45.851 Suicidal ideations; Z20.822 Contact with and (suspected) exposure to COVID-19; W19.XXXA Unspecified fall, initial encounter; Y93.89 Activity, other specified; Y92.89 Other specified places as the place of occurrence of the external cause; Y99.8 Other external cause status; Z13.30 Encounter for screening examination for mental health and behavioral disorders, unspecified
CPT/HCPCS: 36415; 70450; 70486; 80048; 80320; 84703; 85025; 99285; J3490; G0480; J0330; J2060; U0003